=== PATIENT | male | born 1965 | race Caucasian/White ===

== ENCOUNTER 2021-01-02 18:00 | Emergency (ER) | payer SELFPAY ==
--- OUTSIDE RECORDS SUMMARY | 2021-01-02 18:04 | XMS REPORT | Continuity of Care Document ---
:1965 Author Organization [facility] t Address [address] [place] [address] Dr. [address]. [address] [place] [address] Care Team Providers Name Role Phone Sharpless Primary Care Physician Brunilda CORDERO Attending Clinician JAMMIE WATKINS Attending Clinician Unavailable JAMMIE WATKINS Admitting Clinician Unavailable Problems Condition Condition Condition Status Onset Resolution Last Treating Co mments Source Name Details Category Date Date Treatment Clinician Date TIA TIA Disease Active [facility] (transient (transient 5-01 [facility] [facility] - ischemic ischemic 00:00: Medica l attack) attack) 00 [place] Speech Speech Disease Active [facility] abnormalit abnormalit 4-30 [facility] - y y 00:00: Medical 00 [place] Bipolar Bipolar Disease Active [facility] disorder disorder [facility] Allergies, Adverse Reactions, Alerts This patient has no known allergies or adverse reactions. Social History Social Habit Start Date Stop Date Quantity Comments Source Sex Assigned At [facility] Smoking Status Start Date Stop Date Source Former smoker 2017-02-18 00:00:00 2017-02-18 00:00:00 [facility] Medications Ordered Filled Start Stop Current Ordering Indication Dosage Frequency Signature Comments Components Source Medication Medication Date Date Medication? Clinician (SIG) Name Name cyclobenzap 2017- Yes 10mg Q.5D Take [address] [facility] rine 5-01 by mouth 2 [facility] - (FLEXERIL) 17:14: (two) Medica l 10 MG 26 times Center tablet daily . glipiZIDE 2017-0 Yes 10mg Take [address] [facility] [address] [facility] (GLUCOTROL) 5-01 by mouth 2 [place] [facility] - 10 MG 17:14: (two) Medical tablet 26 times Center daily before meals. lisinopril 2017-0 Yes 10mg QD Take [address] [facility] (PRINIVIL,Z 5-01 by mouth [facility] - ESTRIL) 10 17:14: daily. Medic al MG tablet 26 Center gabapentin 2016-0 Yes 600mg Q.5D Take [address] [facility] [address] [facility] (NEURONTIN) 5-01 mg by [facility] - 600 MG 17:14: mouth 2 Medical tablet 26 (two) Center times daily. metFORMIN 2016-0 Yes 1000mg Take 1,[address] [facility] (GLUCOPHAGE 5-01 mg by [facility] - ) 1000 MG 17:14: mouth 2 Medic al tablet 26 (two) Center times daily with breakfast and dinner. multivitami 2017-0 Yes 1{capsu QD Take [address] n capsule 5-01 le} capsule by [facility] - 17:14: mouth Medical 26 daily. Center omega-3 2016-0 Yes Take by [facility] fatty 5-01 mouth. [facility] - acids-vitam 17:14: Medica l in E 1,000 26 Center mg Cap b complex 2016-0 Yes 1{tbl} Q.5D Take [address] [facility] vitamins 5-01 tablet by [facility] - tablet 17:14: mouth 2 Medical 26 (two) Center times daily. DULoxetine 2017-0 Yes 60mg QD Take [address] [facility] (CYMBALTA) 5-01 by mouth [facility] - 60 MG 17:14: daily. Medical capsule 26 Center lamoTRIgine 2017-0 Yes 100mg QD Take [address] (LAMICTAL) 5-01 mg by [facility] - 100 MG 17:14: mouth Medical tablet 26 daily. Center Procedures This patient has no known procedures. Encounters Start End Encounter Admission Attending Care Care Encounter Source Date/Time Date/Time Type Type Clinicians Facility Department ID 2020-01-18 2020-01-18 Telephone KARL Worley [id number] 00:00:00 00:00:00 [facility] [id number] [place] [id number] [place] [address] [id number] Primary & 370 Specialty Care 2019-11-02 2019-11-02 Outpatient MH MED [id number] 05:44:00 05:44:00 [facility] goldie [facility] Results Test Description Test Time Test Comments Results Result Comments Source POCT-GLUCOSE METER 2017-02-18 12:24:00 Test Item Value Reference Range Interpretation Comme nts POC-GLUCOSE METER (BEAKER) (test 217 mg/dL 70-[address] [facility] [address] code = 1538) [facility] 7703 0 [id number] 12:20:00 Test Item Value Reference Range Interpretation Comments RPR SCREEN (BEAKER) (test code = Nonreactive Nonreactive 420) POCT-GLUCOSE [id number] 08:12:00 Test Item Value Reference Range Interpretation Comments POC-GLUCOSE METER 149 mg/dL 70-[address] [facility] [address] (BEAKER) (test code = BERTNE R [facility] 1538) [address] BASIC METABOLIC [id number] 05:20:00 Test Item Value Reference Range Interpretation Comments SODIUM (BEAKER) 140 meq/L 136-145 (test code = 381) POTASSIUM (BEAKER) 4.1 meq/L 3.5-5.1 (test code = 379) CHLORIDE (BEAKER) 107 meq/L 98-107 (test code = 382) CO2 (BEAKER) (test 25 meq/L 22-29 code = 355) BLOOD UREA NITROGEN 12 mg/dL 7-21 (BEAKER) (test code = 354) CREATININE (BEAKER) 0.89 mg/dL 0.57-1.25 (test code = 358) GLUCOSE RANDOM 177 mg/dL 70-105 H (BEAKER) (test code = 652) CALCIUM (BEAKER) 8.7 mg/dL 8.4-10.2 (test code = 697) EGFR (BEAKER) (test 90 mL/min/1.73 ESTIMA JOANIE GFR IS code = 1092) sq m NOT ACCURATE CREATININE CLEARANCE IN PREDICTING GLOMERULAR FILTRATION RATE . ESTIMATED GFR I S NOT APPLICABLE FOR DIALYSIS PATIEN TS. CBC W/PLT COUNT & AUTO [id number] 05:07:00 Test Item Value Reference Range Interpretation Comments WHITE BLOOD CELL COUNT (BEAKER) 6.9 K/ L 4.0-10.0 (test code = 775) RED BLOOD CELL COUNT (BEAKER) 5.37 M/ L 4.20-5.80 (test code = 761) HEMOGLOBIN (BEAKER) (test code = 16.7 GM/DL 13.0-16.8 410) HEMATOCRIT (BEAKER) (test code = 47.4 % 40.0-50.0 411) MEAN CORPUSCULAR VOLUME (BEAKER) 88.3 fL 82.0-98.0 (test code = 753) MEAN CORPUSCULAR HEMOGLOBIN 31.1 pg 27.0-33.0 (BEAKER) (test code = 751) MEAN CORPUSCULAR HEMOGLOBIN CONC 35.2 GM/DL 32.0-36.0 (BEAKER) (test code = 752) RED CELL DISTRIBUTION WIDTH 13.5 % 10.3-14.2 (BEAKER) (test code = 412) PLATELET COUNT (BEAKER) (test 158 K/CU MM 150-430 code = 756) MEAN PLATELET VOLUME (BEAKER) 7.0 fL 6.5-10.5 (test code = 754) NUCLEATED RED BLOOD CELLS 0 /100 WBC 0-0 (BEAKER) (test code = 413) NEUTROPHILS RELATIVE PERCENT 47 % (BEAKER) (test code = 429) LYMPHOCYTES RELATIVE PERCENT 39 % (BEAKER) (test code = 430) MONOCYTES RELATIVE PERCENT 9 % (BEAKER) (test code = 431) EOSINOPHILS RELATIVE PERCENT 3 % (BEAKER) (test code = 432) BASOPHILS RELATIVE PERCENT 1 % (BEAKER) (test code = 437) NEUTROPHILS ABSOLUTE COUNT 3.26 K/ L 1.80-8.00 (BEAKER) (test code = 670) LYMPHOCYTES ABSOLUTE COUNT 2.70 K/ L 1.48-4.50 (BEAKER) (test code = 414) MONOCYTES ABSOLUTE COUNT (BEAKER) 0.64 K/ L 0.00-1.30 (test code = 415) EOSINOPHILS ABSOLUTE COUNT 0.23 K/ L 0.00-0.50 (BEAKER) (test code = 416) BASOPHILS ABSOLUTE COUNT (BEAKER) 0.05 K/ L 0.00-0.20 (test code = 417) 0.00POCT-GLUCOSE [id number] 21:04:00 Test Item Value Reference Range Interpretation Comments POC-GLUCOSE METER 298 mg/dL 70-110 H TESTED AT [place] [address] ([facility]) (test code = JA Mace [facility] 1538) [address] POCT-GLUCOSE [id number] 17:31:00 Test Item Value Reference Range Interpretation Comments POC-GLUCOSE METER 269 mg/dL 70-110 H TESTED AT [place] [address] ([facility]) (test code = DIONEND Rodri [facility] 1538) [address] POCT-GLUCOSE [id number] 12:28:00 Test Item Value Reference Range Interpretation Comments POC-GLUCOSE METER 242 mg/dL 70-110 H TESTED AT [place] [address] ([facility]) (test code = [facility] Rodri [facility] 1538) [address] HEMOGLOBIN [id number] 11:38:00 Test Item Value Reference Range Interpretation Comments HEMOGLOBIN A1C ([facility]) (test code = 9.3 % 4.3-6.1 H 368) SEDIMENTATION [id number] 09:30:00 Test Item Value Reference Range Interpretation Comments SEDIMENTATION RATE, ERYTHROCYTE 5 mm/HR 0-20 ([facility]) (test code = 766) TSH/FREE T4 IF [id number] 09:07:00 Test Item Value Reference Range Interpretation Comments THYROID STIMULATING HORMONE 1.33 uIU/mL 0.35-4.94 ([facility]) (test code = 772) VITAMIN B12 AND [id number] 09:07:00 Test Item Value Reference Range Interpretation Comments VITAMIN B12 ([facility]) (test code = 1548 pg/mL 213-816 H 774) FOLATE ([facility]) (test code = 362) 18.7 ng/mL >=7.0 Effective 09/07/2014: Folate Reference Range ChangeNew: >=7.0 Previous: >=5.4POCT-GLUCOSE [id number] 08:36:00 Test Item Value Reference Range Interpretation Comments POC-GLUCOSE METER 221 mg/dL 70-110 H TESTED AT [place] [address] ([facility]) (test code = [facility] Rodri [facility] 1538) [address] CBC W/PLT COUNT & AUTO [id number] 08:09:00 Test Item Value Reference Range Interpretation Comments WHITE BLOOD CELL COUNT (BEAKER) 6.9 K/ L 4.0-10.0 (test code = 775) RED BLOOD CELL COUNT (BEAKER) 5.16 M/ L 4.20-5.80 (test code = 761) HEMOGLOBIN (BEAKER) (test code = 15.9 GM/DL 13.0-16.8 410) HEMATOCRIT (BEAKER) (test code = 45.5 % 40.0-50.0 411) MEAN CORPUSCULAR VOLUME (BEAKER) 88.1 fL 82.0-98.0 (test code = 753) MEAN CORPUSCULAR HEMOGLOBIN 30.8 pg 27.0-33.0 (BEAKER) (test code = 751) MEAN CORPUSCULAR HEMOGLOBIN CONC 35.0 GM/DL 32.0-36.0 (BEAKER) (test code = 752) RED CELL DISTRIBUTION WIDTH 13.6 % 10.3-14.2 (BEAKER) (test code = 412) PLATELET COUNT (BEAKER) (test 160 K/CU MM 150-430 code = 756) MEAN PLATELET VOLUME (BEAKER) 7.3 fL 6.5-10.5 (test code = 754) NUCLEATED RED BLOOD CELLS 0 /100 WBC 0-0 (BEAKER) (test code = 413) NEUTROPHILS RELATIVE PERCENT 46 % (BEAKER) (test code = 429) LYMPHOCYTES RELATIVE PERCENT 40 % (BEAKER) (test code = 430) MONOCYTES RELATIVE PERCENT 10 % (BEAKER) (test code = 431) EOSINOPHILS RELATIVE PERCENT 3 % (BEAKER) (test code = 432) BASOPHILS RELATIVE PERCENT 1 % (BEAKER) (test code = 437) NEUTROPHILS ABSOLUTE COUNT 3.17 K/ L 1.80-8.00 (BEAKER) (test code = 670) LYMPHOCYTES ABSOLUTE COUNT 2.78 K/ L 1.48-4.50 (BEAKER) (test code = 414) MONOCYTES ABSOLUTE COUNT (BEAKER) 0.72 K/ L 0.00-1.30 (test code = 415) EOSINOPHILS ABSOLUTE COUNT 0.21 K/ L 0.00-0.50 (BEAKER) (test code = 416) BASOPHILS ABSOLUTE COUNT (BEAKER) 0.06 K/ L 0.00-0.20 (test code = 417) 0.00LIPID [id number] 08:04:00 Test Item Value Reference Range Interpretation Comments TRIGLYCERIDES (BEAKER) (test code = 322 mg/dL 540) CHOLESTEROL (BEAKER) (test code = 160 mg/dL 631) HDL CHOLESTEROL (BEAKER) (test code 30 mg/dL = 976) LDL CHOLESTEROL CALCULATED (BEAKER) 66 mg/dL (test code = 633) Triglyceride Reference Range: Low Risk <150 Borderline 150-199 High Risk 200-499 Very High Risk >=500Cholesterol Reference Range: Low Risk <200 Borderline 200-239 High Risk >240HDL Cholesterol Reference Range: Low Risk >=60 High Risk <40LDL Cholesterol Reference Range: Optimal <100 Near Optimal 100-129 Borderline 130-159 High 160-189 Very High >=190BASIC METABOLIC [id number] 07:33:00 Test Item Value Reference Range Interpretation Comments SODIUM (BEAKER) 141 meq/L 136-145 (test code = 381) POTASSIUM (BEAKER) 4.2 meq/L 3.5-5.1 (test code = 379) CHLORIDE (BEAKER) 108 meq/L 98-107 H (test code = 382) CO2 (BEAKER) (test 24 meq/L 22-29 code = 355) BLOOD UREA NITROGEN 14 mg/dL 7-21 (BEAKER) (test code = 354) CREATININE (BEAKER) 0.94 mg/dL 0.57-1.25 (test code = 358) GLUCOSE RANDOM 207 mg/dL 70-105 H (BEAKER) (test code = 652) CALCIUM (BEAKER) 9.2 mg/dL 8.4-10.2 (test code = 697) EGFR (BEAKER) (test 84 mL/min/1.73 ESTIMA JOANIE GFR IS code = 1092) sq m NOT ACCURATE CREATININE CLEARANCE IN PREDICTING GLOMERULAR FILTRATION RATE . ESTIMATED GFR I S NOT APPLICABLE FOR DIALYSIS PATIEN TS.
--- NOTE | 2021-01-02 19:55 | RAD REPORT ---
EXAM DESCRIPTION: RAD - Knee Left 3 View - 01/02/2021 7:34 pm CLINICAL HISTORY: Left knee pain FINDINGS: 26 millimeter bony density lies adjacent to the superolateral aspect of the patella. It is unchanged 2017 and may represent a bipartite patella which is a normal variant or an old fracture. No acute fracture or dislocation noted
--- NOTE | 2021-01-02 21:18 | ER ---
Nurse's Notes [facility] Name: Diogenes Power Jr Age: 55 yrs Sex: Male : 1965 Arrival Date: 01/02/2021 Time: 18:08 Bed Waiting Private MD: Diagnosis: Other dislocation of left knee Presentation: 01/02 18:40 Chief complaint: Patient states: Dislocated my L knee Saturday, put it back by myself. ca1 This morning, twisted my L knee again and dislocated. Now, I can't walk and put pressure on it. Coronavirus screen: Client denies travel out of the [place] in the last 14 days. At this time, the client does not indicate any symptoms associated with coronavirus-19. Ebola Screen: Patient negative for fever greater than or equal to 101.5 degrees Fahrenheit, and additional compatible Ebola Virus Disease symptoms Patient denies exposure to infectious person. Patient denies travel to an Ebola-affected area in the 21 days before illness onset. No symptoms or risks identified at this time. Initial Sepsis Screen: Does the patient meet any 2 criteria? No. Patient's initial sepsis screen is negative. Does the patient have a suspected source of infection? No. Patient's initial sepsis screen is negative. Risk Assessment: Do you want to hurt yourself or someone else? Patient reports no desire to harm self or others. Onset of symptoms was January 02, 2021. 18:40 Method Of Arrival: Ambulatory ca1 18:40 Acuity: ESA 4 ca1 Historical: - Allergies: 18:44 Cardizem; ca1 - PMHx: 18:44 Bipolar disorder; CVA; Diabetes - NIDDM; Hypertension; Myocardial infarction; ca1 - PSHx: 18:44 right hand surgery; bilateral rotator cuff; Hernia repair; left elbow surgery; ca1 - Immunization history:: Flu vaccine is not up to date. - Social history:: Smoking status: Patient denies any tobacco usage or history of. Screenin:33 Abuse screen: Denies threats or abuse. Denies injuries from another. Nutritional ca1 screening: No deficits noted. Tuberculosis screening: No symptoms or risk factors identified. Fall Risk None identified. Assessment: 21:33 General: Appears in no apparent distress. comfortable, Behavior is calm, cooperative, ca1 appropriate for age. Pain: Complains of pain in left knee Pain currently is 9 out of 10 on a pain scale. Pain began this morning. Neuro: Level of Consciousness is awake, alert, obeys commands, Oriented to person, place, time, situation. Derm: Skin is intact, is healthy with good turgor, Skin is pink, warm \T\ dry. Musculoskeletal: Circulation, motion, and sensation intact. Capillary refill < 3 seconds. Vital Signs: 18:40 BP 144 / 79; Pulse 70; Resp 16; Temp 97.2(TE); Pulse Ox 98% on R/A; Weight 127.91 kg ca1 (R); Height 6 ft. 0 in. (182.88 cm) (R); Pain 9/10; 21:33 BP 144 / 87; Pulse 89; Resp 16 S; Pulse Ox 97% on R/A; ca1 18:40 Body Mass Index 38.25 (127.91 kg, 182.88 cm) ca1 ED Course: 18:08 Patient arrived in ED. mr 18:43 Triage completed. ca1 18:44 Arm band placed on right wrist. ca1 19:34 Knee Left 3 View XRAY In Process Unspecified. EDMS 21:13 Joni Lugo MD is Attending Physician. tw4 21:17 Brandon Harley MD is Referral Physician. tw4 21:17 Rony Armijo MD is Referral Physician. tw4 21:33 Hannah Sotomayor, KENNETH is Primary Nurse. ca1 21:33 Patient has correct armband on for positive identification. ca1 21:34 No provider procedures requiring assistance completed. Patient did not have IV access ca1 during this emergency room visit. Knee immobilizer applied on left knee. Administered Medications: 21:33 Drug: [place] (7.5 mg-325 mg) 1 tabs {Note: rass 0.} Route: PO; ca1 21:34 Follow up: Response: Medication administered at discharge. ca1 21:33 Drug: Motrin 600 mg Route: PO; ca1 21:35 Follow up: Response: Medication administered at discharge. ca1 Outcome: 21:17 Discharge ordered by . tw4 21:35 Discharged to home ambulatory, with significant other. ca1 21:35 Condition: stable 21:35 Discharge instructions given to patient, Instructed on discharge instructions, follow up and referral plans. medication usage, Demonstrated understanding of instructions, follow-up care, medications, Prescriptions given X 1. 21:35 Patient left the ED. ca1 Signatures: Dispatcher [employer] Ilsa Suarez Terrence, MD MD tw4 Hannah Sotomayor RN RN ca1
--- NOTE | 2021-01-02 21:18 | EDPHYS ---
Physician Documentation [facility] Name: Diogenes Power Jr Age: 55 yrs Sex: Male : 1965 Arrival Date: 01/02/2021 Time: 18:08 Bed Waiting Private MD: ED Physician Joni Lugo HPI: 01/02 21:13 This 55 yrs old Male presents to ER via Ambulatory with complaints of Knee tw4 Dislocated. 21:13 The patient presents with decreased range of motion, a deformity. The complaints affect tw4 the left knee. Context: The problem was sustained at home, resulted from twisting of the extremity, the patient is not able to bear weight, must have assistance, Problem is a result from a previous injury: Yes. DISLOCATION OF KNEE. Onset: The symptoms/episode began/occurred just prior to arrival, today. Modifying factors: The symptoms are alleviated by remaining still, the symptoms are aggravated by movement, weight bearing, bending knee. Associated signs and symptoms: The patient has no apparent associated signs or symptoms. Severity of symptoms: At their worst the symptoms were moderate, in the emergency department the symptoms are unchanged. The patient has not experienced similar symptoms in the past. Historical: - Allergies: 18:44 Cardizem; ca1 - PMHx: 18:44 Bipolar disorder; CVA; Diabetes - NIDDM; Hypertension; Myocardial infarction; ca1 - PSHx: 18:44 right hand surgery; bilateral rotator cuff; Hernia repair; left elbow surgery; ca1 - Immunization history:: Flu vaccine is not up to date. - Social history:: Smoking status: Patient denies any tobacco usage or history of. ROS: 21:13 Constitutional: Negative for fever, chills, and weight loss, Eyes: Negative for injury, tw4 pain, redness, and discharge, Cardiovascular: Negative for chest pain, palpitations, and edema, Respiratory: Negative for shortness of breath, cough, wheezing, and pleuritic chest pain, Abdomen/GI: Negative for abdominal pain, nausea, vomiting, diarrhea, and constipation. 21:13 Skin: Negative for injury, rash, and discoloration, Neuro: Negative for headache, weakness, numbness, tingling, and seizure. 21:13 MS/extremity: Positive for swelling, tenderness. 21:13 MS/extremity: Positive for decreased range of motion, pain. Exam: 21:13 Constitutional: This is a well developed, well nourished patient who is awake, alert, tw4 and in no acute distress. Head/Face: Normocephalic, atraumatic. Chest/axilla: Normal chest wall appearance and motion. Nontender with no deformity. No lesions are appreciated. Cardiovascular: Regular rate and rhythm with a normal S1 and S2. No gallops, murmurs, or rubs. Normal PMI, no JVD. No pulse deficits. Respiratory: Lungs have equal breath sounds bilaterally, clear to auscultation and percussion. No rales, rhonchi or wheezes noted. No increased work of breathing, no retractions or nasal flaring. Abdomen/GI: Soft, non-tender, with normal bowel sounds. No distension or tympany. No guarding or rebound. No evidence of tenderness throughout. Back: No spinal tenderness. No costovertebral tenderness. Full range of motion. Neuro: Awake and alert, GCS 15, oriented to person, place, time, and situation. Cranial nerves II-XII grossly intact. Motor strength 5/5 in all extremities. Sensory grossly intact. Cerebellar exam normal. Normal gait. Psych: Awake, alert, with orientation to person, place and time. Behavior, mood, and affect are within normal limits. 21:13 Musculoskeletal/extremity: Extremities: noted in the right knee: decreased ROM, deformity, Pulses: noted to be 2+ in the right dorsalis pedis artery, Perfusion: the extremity is normally perfused throughout. Vital Signs: 18:40 BP 144 / 79; Pulse 70; Resp 16; Temp 97.2(TE); Pulse Ox 98% on R/A; Weight 127.91 kg ca1 (R); Height 6 ft. 0 in. (182.88 cm) (R); Pain 9/10; 21:33 BP 144 / 87; Pulse 89; Resp 16 S; Pulse Ox 97% on R/A; ca1 18:40 Body Mass Index 38.25 (127.91 kg, 182.88 cm) ca1 Procedures: 01/03 01:08 Splinting: Splint applied to left quadriceps, left knee and left dave using knee tw4 immobilizer, applied by nurse. Examined by me, post splint application: neurovascular intact, 2+ distal pulses palpable, brisk capillary refill noted, Patient tolerated well. MDM: 01/02 21:17 Patient medically screened. tw4 01/03 01:08 Differential diagnosis: dislocation, closed fracture, contusion, abrasion, tendonitis. tw4 Data reviewed: vital signs, nurses notes, radiologic studies, plain films. Data interpreted: Pulse oximetry: Interpretation: normal. Test interpretation: by ED physician or midlevel provider: plain radiologic studies. Counseling: I had a detailed discussion with the patient and/or guardian regarding: the historical points, exam findings, and any diagnostic results supporting the discharge/admit diagnosis, radiology results. 01/02 18:45 Order name: Knee Left 3 View XRAY ca1 01/02 21:15 Order name: Knee Immobilizer; Complete Time: 21:25 tw4 Administered Medications: 01/02 21:33 Drug: [place] (7.5 mg-325 mg) 1 tabs {Note: rass 0.} Route: PO; ca1 21:34 Follow up: Response: Medication administered at discharge. ca1 21:33 Drug: Motrin 600 mg Route: PO; ca1 21:35 Follow up: Response: Medication administered at discharge. ca1 Disposition: 01/02/21 21:17 Discharged to Home. Impression: Other dislocation of left knee. - Condition is Stable. - Discharge Instructions: Knee Dislocation. - Prescriptions for meloxicam 7.5 mg Oral tablet - take 1 tablet by ORAL route once daily; 15 tablet. - Medication Reconciliation Form, Thank You Letter, Antibiotic Education, Prescription Opioid Use form. - Follow up: Private Physician; When: Upon discharge from the Emergency Department; Reason: Recheck today's complaints, Continuance of care, Re-evaluation by your physician. Follow up: Brandon Harley MD; When: Upon discharge from the Emergency Department; Reason: Recheck today's complaints, Continuance of care, Re-evaluation by your physician. Follow up: Rony Armijo MD; When: Upon discharge from the Emergency Department; Reason: Recheck today's complaints, Continuance of care, Re-evaluation by your physician. - Problem is an ongoing problem. - Symptoms have improved. Signatures: Dispatcher [employer] Joni Perez MD MD tw4 Hannah Sotomayor RN RN ca1 Corrections: (The following items were deleted from the chart) 21:18 21:17 01/02/2021 21:17 Discharged to Home. Impression: Other dislocation of left knee. tw4 Condition is Stable. Forms are Medication Reconciliation Form, Thank You Letter, Antibiotic Education, Prescription Opioid Use. Follow up: Private Physician; When: Upon discharge from the Emergency Department; Reason: Recheck today's complaints, Continuance of care, Re-evaluation by your physician. Problem is an ongoing problem. Symptoms have improved. tw4 21:35 21:18 01/02/2021 21:17 Discharged to Home. Impression: Other dislocation of left knee. ca1 Condition is Stable. Forms are Medication Reconciliation Form, Thank You Letter, Antibiotic Education, Prescription Opioid Use. Follow up: Private Physician; When: Upon discharge from the Emergency Department; Reason: Recheck today's complaints, Continuance of care, Re-evaluation by your physician. Follow up: Brandon Harley; When: Upon discharge from the Emergency Department; Reason: Recheck today's complaints, Continuance of care, Re-evaluation by your physician. Follow up: Rony Armijo; When: Upon discharge from the Emergency Department; Reason: Recheck today's complaints, Continuance of care, Re-evaluation by your physician. Problem is an ongoing problem. Symptoms have improved. tw4
[2021-01-02] MEDS ORDERED: HYDROCODONE/APAP 7.5/325 MG TAB ONE (21:45)
[2021-01-02] MEDS ORDERED: IBUPROFEN 400 MG TAB ONE (21:45)
[2021-01-02] MEDS ORDERED: IBUPROFEN 200 MG TAB PO ONE (21:45)
[2021-01-03 02:09] VITALS: TEMP 97.2
[2021-01-03 02:15] VITALS: BP 144/87; O2SAT 97
== END 2021-01-02 21:35 | disposition home or self-care (01) ==
LOC: ER 18:00
DX: S83.195A Other dislocation of left knee, initial encounter (principal); X50.0XXA Overexertion from strenuous movement or load, initial encounter; Y92.009 Unspecified place in unspecified non-institutional (private) residence as the place of occurrence of the external cause; F31.9 Bipolar disorder, unspecified; Z86.73 Personal history of transient ischemic attack (TIA), and cerebral infarction without residual deficits; E11.9 Type 2 diabetes mellitus without complications; I10 Essential (primary) hypertension; I25.2 Old myocardial infarction
CPT/HCPCS: 99284

== ENCOUNTER 2021-01-27 18:05 | Inpatient (IN) | payer SELFPAY ==
--- OUTSIDE RECORDS SUMMARY | 2021-01-27 18:09 | XMS REPORT | Continuity of Care Document ---
:1965 Author Organization [facility] t Address [address] [place] [address] Care Team Providers Name Role Phone Sharpless [...] ischemic 00:00: Medica l attack) attack) [address] [place] Speech Speech Disease Active [facility] abnormal[facility] 4-30 Tootie kes - y y 00:00: Medical 00 [place] Bipolar Bipolar Disease Active [facility] disorder disorder [facility] Allergies, Adverse Reactions, Alerts This patient has no known allergies or adverse reactions. Social History Social Habit Start Date Stop Date Quantity Comments Source Sex Assigned At [facility] Smoking Status Start Date Stop Date Source Former smoker 2017-02-18 00:00:00 2017-02-18 00:00:00 [facility] Medications Ordered Filled Start Stop Current Ordering [...] 1,000 26 Center mg Cap b complex 2016- Yes 1{tbl} Q.5D Take [address] [facility] [...] Department ID 2020-01-18 2020-01-18 Telephone KARL Worley [id number] 00:00:00 00:00:00 [facility] [id number] [place] [id number] [place] [address] [phone] Primary & 370 Specialty Care 2019-11-02 2019-11-02 Outpatient MH MED [id number] 05:44:00 05:44:00 [facility] Results Test Description Test Time Test Comments Results Result Comments Source POCT-GLUCOSE METER 2017-02-18 12:24:00 Test Item Value Reference Range Interpretation Comme nts POC-GLUCOSE METER (BEAKER) (test 217 mg/dL 70-110 H TESTED AT [facility] [address] code = 1538) [facility] 7703 0 [id number] 12:20:00 Test Item Value Reference Range Interpretation Comments RPR SCREEN (BEAKER) (test code = Nonreactive Nonreactive 420) POCT-GLUCOSE [id number] 08:12:00 Test Item Value Reference Range Interpretation Comments POC-GLUCOSE METER 149 mg/dL 70-110 H TESTED AT [facility] 6720 (BEAKER) (test code = BERTNE R [facility] 1538) [address] BASIC METABOLIC [id number] 05:20:00 Test Item Value Reference Range Interpretation [...] PATIEN TS. CBC W/PLT COUNT & AUTO [id number] 05:07:00 Test Item Value Reference Range Interpretation [...] L 0.00-0.20 (test code = 417) 0.00POCT-GLUCOSE [id number] 21:04:00 Test Item Value Reference Range Interpretation Comments POC-GLUCOSE METER 298 mg/dL 70-110 H TESTED AT [place] [address] ([facility] (test code = JA Mace [facility] 1538) [address] POCT-GLUCOSE [id number] 17:31:00 Test Item Value Reference Range Interpretation Comments POC-GLUCOSE METER 269 mg/dL 70-110 H TESTED AT [place] [address] ([facility] (test code = JA Mace [facility] 1538) [address] POCT-GLUCOSE [id number] 12:28:00 Test Item Value Reference Range Interpretation Comments POC-GLUCOSE METER 242 mg/dL 70-110 H TESTED AT [place] [address] ([facility] (test code = JA Mace [facility] 1538) [address] HEMOGLOBIN [id number] 11:38:00 Test Item Value Reference Range Interpretation Comments HEMOGLOBIN A1C ([facility] (test code = 9.3 % 4.3-6.1 H 368) SEDIMENTATION [id number] 09:30:00 Test Item Value Reference Range Interpretation Comments SEDIMENTATION RATE, ERYTHROCYTE 5 mm/HR 0-20 ([facility] (test code = 766) TSH/FREE T4 IF [id number] 09:07:00 Test Item Value Reference Range Interpretation Comments THYROID STIMULATING HORMONE 1.33 uIU/mL 0.35-4.94 ([facility] (test code = 772) VITAMIN B12 AND [id number] 09:07:00 Test Item Value Reference Range Interpretation Comments VITAMIN B12 ([facility] (test code = 1548 pg/mL 213-816 H 774) FOLATE ([facility] (test code = 362) 18.7 ng/mL >=7.0 Effective 09/07/2014: Folate Reference Range ChangeNew: >=7.0 Previous: >=5.4POCT-GLUCOSE [id number] 08:36:00 Test Item Value Reference Range Interpretation Comments POC-GLUCOSE METER 221 mg/dL 70-110 H TESTED AT [place] [address] ([facility] (test code = JA Mace [facility] 1538) [address] CBC W/PLT COUNT & AUTO [id number] 08:09:00 Test Item Value Reference Range Interpretation [...] L 0.00-0.20 (test code = 417) 0.00LIPID [id number] 08:04:00 Test Item Value Reference Range Interpretation [...] 130-159 High 160-189 Very High >=190BASIC METABOLIC [id number] 07:33:00 Test Item Value Reference Range Interpretation [...]
[2021-01-27 18:49] LABS: Basophils % 0.8 % (0-1.3); Hematocrit 44.5 % (39.6-49.0); Lymphocytes % 23.3 % (15.3-44.8); MPV 9.2 fL (7.6-11.3); Protime INR 0.93; RBC Red Blood Cell Count 4.87 M/uL (4.33-5.43)
--- NOTE | 2021-01-27 19:03 | RAD REPORT ---
EXAM DESCRIPTION: RAD - Chest Single View - 01/27/2021 6:44 pm CLINICAL HISTORY: syncope Chest pain. COMPARISON: Chest Single View dated 03/27/2017; Chest Single View dated 02/16/2017; CHEST SINGLE VIEW d ated 07/11/2014; CHEST SINGLE VIEW dated 07/09/2014 FINDINGS: Portable technique limits examination quality. The lungs are underinflated resulting in vascular crowding. Small infiltrate may be present in the la teral right lower lobe. The heart is mildly enlarged in size. No displaced fractures. IMPRESSION: Possible small infiltrate right lung base.
[2021-01-27] MEDS ORDERED: NA CHLORIDE 0.9% 1,000 ML ONE (19:06)
--- NOTE | 2021-01-27 19:10 | RAD REPORT ---
EXAM DESCRIPTION: CT - Head Brain Wo Cont - 01/27/2021 7:05 pm CLINICAL HISTORY: SYNCOPE Headache, drowsiness, syncope COMPARISON: Head Brain Wo Cont dated 02/16/2017 TECHNIQUE: All CT scans are performed using dose optimization technique as appropriate and may inclu de automated exposure control or mA/KV adjustment according to patient size. FINDINGS: No intracranial hemorrhage, hydrocephalus or extra-axial fluid collection.No areas of brai n edema or evidence of midline shift. The paranasal sinuses and mastoids are clear. The calvarium is intact. IMPRESSION: No acute intracranial abnormality.
[2021-01-27 19:22] LABS: ALT/SGPT 39 U/L (12-78); Albumin 3.4 g/dL (3.4-5.0); Alkaline Phosphatase 86 U/L (45-117); BUN Blood Urea Nitrogen 20 mg/dL (7-18); Bicarbonate 26 mmol/L (21-32); Bilirubin Total 0.5 mg/dL (0.2-1.0); Glucose Level 340 mg/dL (74-106); NT PRO-BNP 16 pg/mL (<125); Potassium 5.5 mmol/L (3.5-5.1); Protein, Total 6.3 g/dL (6.4-8.2); Sodium Level 137 mmol/L (136-145); Troponin (Emerg Dept Use Only) < 0.02 ng/mL (0.0-0.045)
[2021-01-27 19:23] LABS: Bilirubin Direct 0.1 mg/dL (0-0.2)
[2021-01-27 19:53] LABS: AST/SGOT 42 U/L (15-37); Magnesium 2.1 mg/dL (1.8-2.4)
--- NOTE | 2021-01-27 21:16 | ER ---
Nurse's Notes [facility] Name: Diogenes Power Jr Age: 55 yrs Sex: Male : 1965 Arrival Date: 01/27/2021 Time: 18:09 Bed 18 Private MD: Diagnosis: Syncope and collapse;Hyperkalemia Presentation: 01/27 18:09 Chief complaint: Patient states: Found on floor at home. Last known normal was last bw night. Pt is A\\T\\O x2, confused. Respirations even and unlabored. Coronavirus screen: Client denies travel out of the [place] in the last 14 days. Ebola Screen: Patient denies exposure to infectious person. Patient denies travel to an Ebola-affected area in the 21 days before illness onset. Initial Sepsis Screen: Does the patient meet any 2 criteria? No. Patient's initial sepsis screen is negative. Does the patient have a suspected source of infection? No. Patient's initial sepsis screen is negative. Risk Assessment: Do you want to hurt yourself or someone else? Patient reports no desire to harm self or others. Onset of symptoms is unknown. 18:09 Method Of Arrival: EMS: [facility] 18:09 Acuity: ESA 2 bw Historical: - Allergies: 18:40 Cardizem; bw - PMHx: 18:40 Bipolar disorder; CVA; Diabetes - NIDDM; Hypertension; Myocardial infarction; Seizures; bw - PSHx: 18:40 right hand surgery; bilateral rotator cuff; Hernia repair; left elbow surgery; bw - Immunization history:: Adult Immunizations unknown. - Social history:: Smoking status: Patient reports use of chewing tobacco. Screenin:46 Abuse screen: Denies threats or abuse. Denies injuries from another. Nutritional bw screening: No deficits noted. Tuberculosis screening: Never had TB. Fall Risk Fall in past 12 months (25 points). Secondary diagnosis (15 points) AMS. IV access (20 points). Ambulatory Aid- None/Bed Rest/Nurse Assist (0 pts). Gait- Normal/Bed Rest/Wheelchair (0 pts) Mental Status- Oriented to own ability (0 pts). Assessment: 18:40 General: Appears comfortable, obese, Behavior is calm, cooperative, joking with ER bw staff and son who is at bedside.. Pain: Denies pain. Neuro: Level of Consciousness is awake, obeys commands, confused, Oriented to person, place, C Wpf Developer are equal bilaterally Weakness in left arm(s) Pt states he is weak on that side because of pain in his shoulder upon movement. Speech is normal, Facial symmetry appears normal, Pupils are PERRLA. Cardiovascular: Capillary refill < 3 seconds is brisk in bilateral fingers. Respiratory: Airway is patent Trachea midline Respiratory effort is even, unlabored. Respiratory: Denies cough, shortness of breath. GI: Abdomen is round Patient currently denies abdominal pain, diarrhea, nausea, vomiting. : No signs and/or symptoms were reported regarding the genitourinary system. EENT: Nares are clear Throat mouth has chewing tobacco residual. Son states that patient "dips" often. . Derm: Skin is intact, is healthy with good turgor, Skin is dry, Skin is pink, warm \\T\\ dry. normal. Musculoskeletal: Swelling absent. 19:40 General: Appears comfortable, obese, Behavior is calm, cooperative. Pain: Denies pain. sf Neuro: Level of Consciousness is awake, obeys commands, confused, Oriented to person, place. Cardiovascular: Capillary refill < 3 seconds Patient's skin is warm and dry. Respiratory: Airway is patent Respiratory effort is even, unlabored, Respiratory pattern is regular, symmetrical. GI: Abdomen is round. : No signs and/or symptoms were reported regarding the genitourinary system. Derm: Skin is pink, warm \\T\\ dry. Musculoskeletal: No signs and/or symptoms reported regarding the musculoskeletal system. 21:10 Reassessment: Patient appears in no apparent distress at this time. No changes from sf previously documented assessment. Patient and/or family updated on plan of care and expected duration. Pain level reassessed. Patient is alert, oriented x 3, equal unlabored respirations, skin warm/dry/pink. 22:55 Reassessment: Patient still not able to give urine after 1800 ml of water PO and 1000 sf ml NS IV, OTTONIEL Ortega notified, BMP ordered. 01/28 00:05 Reassessment: Patient appears in no apparent distress at this time. No changes from sf previously documented assessment. Patient and/or family updated on plan of care and expected duration. Pain level reassessed. Patient is alert, oriented x 3, equal unlabored respirations, skin warm/dry/pink. 01:04 Reassessment: Patient appears in no apparent distress at this time. No changes from previously documented assessment. Patient and/or family updated on plan of care and expected duration. Pain level reassessed. Patient is alert, oriented x 3, equal unlabored respirations, skin warm/dry/pink. Vital Signs: 01/27 18:09 BP 90 / 50; Pulse 79; Resp 14; Temp 98.2(O); Pulse Ox 100% on R/A; Weight 134.72 kg; bw Height 6 ft. 0 in. (182.88 cm); Pain 0/10; 19:00 BP 124 / 71; Pulse 69; Pulse Ox 100% ; sf 19:15 BP 131 / 70; Pulse 69; Resp 16; Pulse Ox 100% ; sf 19:30 BP 127 / 73; Pulse 67; Resp 16; Pulse Ox 99% ; sf 20:45 BP 118 / 65; Pulse 70; Resp 16; Pulse Ox 100% ; sf 21:30 BP 121 / 53; Pulse 69; Resp 16; Pulse Ox 100% ; sf 22:00 BP 155 / 97; Pulse 54; Resp 16; Pulse Ox 100% ; sf 22:30 BP 149 / 92; Pulse 60; Resp 16; Pulse Ox 100% ; sf 23:00 BP 118 / 79; Pulse 69; Resp 16; Pulse Ox 100% ; sf 23:30 BP 113 / 68; Pulse 66; Resp 18; Pulse Ox 100% ; sf 04 00:00 BP 94 / 57; Pulse 72; Resp 16; Pulse Ox 99% ; sf 01:00 BP 132 / 68; Pulse 67; Resp 16; Pulse Ox 100% ; sf 01/27 18:09 Body Mass Index 40.28 (134.72 kg, 182.88 cm) ED Course: 01/27 18:09 Patient arrived in ED. 18:17 Jordan Azul PA is PHCP. cp 18:17 Jordan Ang MD is Attending Physician. cp 18:20 Inserted saline lock: 20 gauge in right wrist, using aseptic technique. Blood jp3 collected. Patient maintains SpO2 saturation greater than 95% on room air. 18:20 Initial lab(s) drawn, by me, sent to lab. First set of blood cultures drawn by me, EKG jp3 done, by ED staff, reviewed by Jordan COLON. 18:33 Kim Callaway, RN is Primary Nurse. bw 18:38 Triage completed. bw 18:38 Second set of blood cultures drawn by ks. jp3 18:40 Arm band placed on right wrist. bw 18:44 XRAY Chest (1 view) In Process Unspecified. EDMS 18:45 Bed in low position. Call light in reach. Side rails up X2. Seizure precautions jp3 initiated. Verbal reassurance given. Head of bed elevated. [employer] on. Pulse ox on. NIBP on. 19:05 CT Head Brain wo Cont In Process Unspecified. EDMS 20:00 Diet: Patient given water. jp3 21:15 Corby Shaikh MD is Hospitalizing Provider. cp 22:55 Diet: Patient given water. jp3 22:57 Primary Nurse role handed off by Kim Callaway, KENNETH sf 22:57 Javier Kimble, KENNETH is Primary Nurse. sf 22:58 Repeat lab(s) drawn. by ks, sent to lab. jp3 23:00 BMP Sent. jp3 23:48 Notified Nurse Practitioner and/or Physician Legal Biller of a critical lab result(s), bb glucose of 429. Jordan Latha COLON notified. 01/28 00:20 Straight cath inserted, using sterile technique, 16 Fr. Specimen obtained. Returned bb clear yellow urine. Patient tolerated well. 00:20 Urine collected: straight cath specimen, clear. sf 01:05 No provider procedures requiring assistance completed. Patient admitted, IV remains in sf place. Administered Medications: 01/27 18:50 Drug: NS 0.9% 1000 ml Route: IV; Rate: 1 bolus; Site: right wrist; bw 19:00 Follow up: IV Status: Completed infusion; IV Intake: 1000ml sf 19:20 Follow up: Response: No adverse reaction sf 01/28 00:10 Drug: Insulin Regular Human 10 units {Co-Signature: bb (Genna Lazo RN).} Route: sf IVP; Site: right forearm; 01:14 Follow up: Response: No adverse reaction; Blood sugar is lowered sf 00:10 Drug: NS 0.9% 1000 ml Route: IV; Rate: 1 bolus; Site: right forearm; sf 01:08 Follow up: Response: No adverse reaction; IV Status: Completed infusion; IV Intake: sf 1000ml Intake: 01/27 19:00 IV: 1000ml; Total: 1000ml. sf 22:57 PO: 1800ml (Water); Total: 2800ml. sf 01/28 01:08 IV: 1000ml; Total: 3800ml. sf Output: 00:20 Urine: 400ml (Straight Cath); Total: 400ml. sf Outcome: 01/27 21:16 Decision to Hospitalize by Provider. vianey 01/28 01:05 Condition: stable sf Instructed on the need for admit. 01:26 Admitted to Tele accompanied by nurse, via stretcher, room 430, Report called to noelle Shen RN 01:44 Patient left the ED. sf Signatures: Dispatcher [employer] EDGenna Aguillon RN RN bb Page, Corey, PA PA cp Pisarski, Jacob jp3 Javier Kimble RN RN sf Webb, Bethany, RN RN Genna brown Corrections: (The following items were deleted from the chart) 01/27 23:33 23:33 BASIC METABOLIC PANEL+C.LAB.BRZ drawn and sent. jp3 jp3
--- NOTE | 2021-01-27 21:16 | EDPHYS ---
Physician Documentation [facility] Name: Diogenes Power Jr Age: 55 yrs Sex: Male : 1965 Arrival Date: 01/27/2021 Time: 18:09 Bed 18 Private MD: ED Physician Jordan Ang HPI: 01/27 18:36 This 55 yrs old Male presents to ER via Unassigned with complaints of Altered cp Mental Status. 18:36 The patient has experienced syncope, collapsed. Onset: The symptoms/episode cp began/occurred just prior to arrival. Duration: This was a single episode, that lasted an unknown period of time. Associated injury: The patient did not suffer any apparent associated injury. 18:36 Patient reports he got up from his bed this afternoon to go to restroom and next thing cp he remembers is waking up on floor. Historical: - Allergies: 18:40 Cardizem; bw - PMHx: 18:40 Bipolar disorder; CVA; Diabetes - NIDDM; Hypertension; Myocardial infarction; Seizures; bw - PSHx: 18:40 right hand surgery; bilateral rotator cuff; Hernia repair; left elbow surgery; bw - Immunization history:: Adult Immunizations unknown. - Social history:: Smoking status: Patient reports use of chewing tobacco. ROS: 18:40 Constitutional: Negative for body aches, chills, fever, poor PO intake. cp 18:40 Eyes: Negative for injury, pain, redness, and discharge. cp 18:40 ENT: Negative for ear pain, sore throat, difficulty swallowing, difficulty handling secretions. 18:40 Cardiovascular: Negative for chest pain. 18:40 Respiratory: Negative for cough, shortness of breath, wheezing. 18:40 Abdomen/GI: Negative for abdominal pain, nausea, vomiting, and diarrhea, black/tarry stool, rectal bleeding. 18:40 Neuro: Positive for syncope, Negative for altered mental status, headache, weakness. 18:40 All other systems are negative. Exam: 18:29 ECG was reviewed by the Attending Physician. cp 18:45 Constitutional: The patient appears in no acute distress, alert, awake, cp non-diaphoretic, non-toxic, well developed, well nourished, obese. 18:45 Head/Face: Normocephalic, atraumatic. cp 18:45 Eyes: Periorbital structures: appear normal, Pupils: equal, round, and reactive to light and accomodation, Extraocular movements: intact throughout, Conjunctiva: normal, no exudate, no injection, Lids and lashes: appear normal, bilaterally. 18:45 ENT: External ear(s): are unremarkable, Nose: is normal, Mouth: Lips: moist, Oral mucosa: moist, Posterior pharynx: Airway: no evidence of obstruction, patent. 18:45 Neck: ROM/movement: is normal, is supple, without pain, no range of motions limitations, no meningismus. 18:45 Chest/axilla: Inspection: normal, Palpation: is normal, no crepitus, no tenderness. 18:45 Cardiovascular: Rate: normal, Rhythm: regular, Edema: is not appreciated, JVD: is not appreciated. 18:45 Respiratory: the patient does not display signs of respiratory distress, Respirations: normal, no use of accessory muscles, no retractions, labored breathing, is not present, Breath sounds: are clear throughout, no decreased breath sounds, no stridor, no wheezing. 18:45 Abdomen/GI: Inspection: abdomen appears normal, Bowel sounds: active, all quadrants, Palpation: abdomen is soft and non-tender, in all quadrants. 18:45 Skin: no rash present. 18:45 Neuro: Orientation: to person, time, situation, Mentation: able to follow commands, Cerebellar function: is grossly normal, Motor: moves all fours, strength is normal, Sensation: is normal. Vital Signs: 18:09 BP 90 / 50; Pulse 79; Resp 14; Temp 98.2(O); Pulse Ox 100% on R/A; Weight 134.72 kg; bw Height 6 ft. 0 in. (182.88 cm); Pain 0/10; 19:00 BP 124 / 71; Pulse 69; Pulse Ox 100% ; sf 19:15 BP 131 / 70; Pulse 69; Resp 16; Pulse Ox 100% ; sf 19:30 BP 127 / 73; Pulse 67; Resp 16; Pulse Ox 99% ; sf 20:45 BP 118 / 65; Pulse 70; Resp 16; Pulse Ox 100% ; sf 21:30 BP 121 / 53; Pulse 69; Resp 16; Pulse Ox 100% ; sf 22:00 BP 155 / 97; Pulse 54; Resp 16; Pulse Ox 100% ; sf 22:30 BP 149 / 92; Pulse 60; Resp 16; Pulse Ox 100% ; sf 23:00 BP 118 / 79; Pulse 69; Resp 16; Pulse Ox 100% ; sf 23:30 BP 113 / 68; Pulse 66; Resp 18; Pulse Ox 100% ; 01/28 00:00 BP 94 / 57; Pulse 72; Resp 16; Pulse Ox 99% ; sf 01:00 BP 132 / 68; Pulse 67; Resp 16; Pulse Ox 100% ; sf 01/27 18:09 Body Mass Index 40.28 (134.72 kg, 182.88 cm) bw MDM: 01/27 18:17 Patient medically screened. checo 21:15 Data reviewed: vital signs, nurses notes, lab test result(s), EKG, radiologic studies, cp CT scan, and as a result, I will admit patient. 01/27 18:20 Order name: Basic Metabolic Panel; Complete Time: 20:11 01/27 20:11 Interpretation: Normal except: K 5.5; CL 108; GLUC 340; BUN 20; CRE 1.97; GFR 35. 01/27 18:20 Order name: CBC with Diff; Complete Time: 19:07 01/27 19:07 Interpretation: Reviewed. 01/27 18:20 Order name: LFT's; Complete Time: 20:11 01/27 20:11 Interpretation: Normal except: AST 42; TP 6.3. 01/27 18:20 Order name: Magnesium; Complete Time: 20:11 01/27 18:20 Order name: NT PRO-BNP; Complete Time: 20:11 01/27 18:20 Order name: PT-INR; Complete Time: 19:07 01/27 18:20 Order name: Troponin (emerg Dept Use Only); Complete Time: 20:11 01/27 18:20 Order name: Urine Drug Screen 01/27 18:20 Order name: Urine Microscopic Only 01/27 18:20 Order name: Lactate; Complete Time: 19:42 01/27 19:42 Interpretation: Within normal limits: LAC 1.9. 01/27 18:20 Order name: Procalcitonin; Complete Time: 20:29 cp 01/27 20:29 Interpretation: Abnormal: Procalcitonin 0.08. cp 01/27 18:20 Order name: Blood Culture Adult (2) cp 04 18:28 Order name: Glucose, Ancillary Testing; Complete Time: 19:07 EDMS 01/27 19:07 Interpretation: Abnormal: GLUC,ANCIL 334. cp 01/27 18:20 Order name: XRAY Chest (1 view); Complete Time: 19:07 cp 01/27 18:20 Order name: EKG; Complete Time: 18:21 cp 01/27 18:20 Order name: Cardiac monitoring; Complete Time: 18:46 cp 01/27 18:20 Order name: EKG - Nurse/Tech; Complete Time: 18:46 cp 01/27 18:20 Order name: IV Saline Lock; Complete Time: 18:46 cp 01/27 18:32 Order name: CT Head Brain wo Cont; Complete Time: 19:12 01/27 19:12 Interpretation: Report reviewed. 01/27 20:14 Order name: CK; Complete Time: 21:13 01/27 20:23 Order name: SARS-COV-2 RT PCR; Complete Time: 20:29 EDKS 01/27 23:00 Order name: BMP 01/27 23:01 Order name: Basic Metabolic Panel; Complete Time: 23:48 EDKS 01/27 23:48 Interpretation: Normal except: K 5.3; GLUC 429; BUN 21; CRE 1.91; GFR 37. cp 01/27 23:06 Order name: CONS Physician Consult EDKS 01/28 00:27 Order name: Urine Dipstick-Ancillary EDKS 01/28 01:24 Order name: Glucose, Ancillary Testing EDKS 01/27 18:20 Order name: Labs collected and sent; Complete Time: 18:46 01/27 18:20 Order name: O2 Per Protocol; Complete Time: 18:46 01/27 18:20 Order name: O2 Sat Monitoring; Complete Time: 18:46 01/27 18:20 Order name: Urine Dipstick-Ancillary (obtain specimen); Complete Time: 22:23 cp 01/28 00:10 Order name: Cath; Complete Time: 00:19 cp EC:29 Rate is 78 beats/min. Rhythm is regular. NJ interval is normal. QRS interval is normal. cp QT interval is normal. T waves are Inverted in lead aVR. Interpreted by me. Reviewed by me. Administered Medications: 18:50 Drug: NS 0.9% 1000 ml Route: IV; Rate: 1 bolus; Site: right wrist; bw 19:00 Follow up: IV Status: Completed infusion; IV Intake: 1000ml sf 19:20 Follow up: Response: No adverse reaction 01/28 00:10 Drug: Insulin Regular Human 10 units {Co-Signature: stephanie (Genna Lazo RN).} Route: sf IVP; Site: right forearm; 01:14 Follow up: Response: No adverse reaction; Blood sugar is lowered 00:10 Drug: NS 0.9% 1000 ml Route: IV; Rate: 1 bolus; Site: right forearm; sf 01:08 Follow up: Response: No adverse reaction; IV Status: Completed infusion; IV Intake: sf 1000ml Disposition: 07:32 Co-signature as Attending Physician, Jordan Ang MD I agree with the assessment and [facility] plan of care. Disposition: 01/27/21 21:16 Hospitalization ordered by Corby Shaikh for Observation. Preliminary diagnosis are Syncope and collapse, Hyperkalemia. - Bed requested for Telemetry/MedSurg (observation). - Status is Observation. sf - Condition is Stable. - Problem is new. - Symptoms have improved. Signatures: Dispatcher [employer] EDKS Mere Callaway RN RN mw Anderson, Corey, MD MD cha Page, Corey, PA PA cp Fitzpatrick, Steven, RN RN sf Webb, Bethany, RN RN bw Brenda Ballard RN bb Corrections: (The following items were deleted from the chart) 01/27 19:28 19:09 CORONAVIRUS+MR.LAB.BRZ ordered. EDKS EDMS 23:38 21:16 Hospitalization Ordered by Corby Shaikh MD for Observation. Preliminary cp diagnosis is Syncope and collapse. Bed requested for Telemetry/MedSurg (observation). Status is Observation. Condition is Stable. Problem is new. Symptoms have improved. cp 01/28 00:56 01/27 23:38 01/27/2021 21:16 Hospitalization Ordered by Corby Shaikh MD for Observation. Preliminary diagnosis is Syncope and collapse; Hyperkalemia. Bed requested for Telemetry/MedSurg (observation). Status is Observation. Condition is Stable. Problem is new. Symptoms have improved. cp 04/10 01:44 00:56 01/27/2021 21:16 Hospitalization Ordered by Corby Shaikh MD for Observation. sf Preliminary diagnosis is Syncope and collapse; Hyperkalemia. Bed requested for Telemetry/MedSurg (observation). Status is Observation. Condition is Stable. Problem is new. Symptoms have improved. mw
[2021-01-27 23:46] LABS: Potassium 5.3 mmol/L (3.5-5.1)
[2021-01-28 00:26] LABS: Urine Blood Negative (Negative); Urine Glucose 2+ (Negative); Urine Protein Negative (Negative); Urine Specific Gravity 1.025 (1.005-1.030)
[2021-01-28] MEDS ORDERED: INSULIN -REGULAR HUMAN 50 UNIT/0.5 ML ML ONE (00:27)
[2021-01-28] MEDS ORDERED: NA CHLORIDE 0.9% 1,000 ML ONE (00:27)
[2021-01-28 00:44] LABS: Barbiturates NEGATIVE (NEGATIVE); Benzodiazepines NEGATIVE (NEGATIVE); Cocaine NEGATIVE (NEGATIVE); METHAMPHETAM NEGATIVE (NEGATIVE); Methadone NEGATIVE (NEGATIVE); Opiates NEGATIVE (NEGATIVE); Phencyclidine NEGATIVE (NEGATIVE); THC Cannibis NEGATIVE (NEGATIVE); Urine Bacteria <20 /HPF (NONE SEEN); Urine RBC <5 /HPF (NONE SEEN)
--- NOTE | 2021-01-28 01:16 | P.HP ---
Certification for Inpatient Patient admitted to: Observation With expected LOS: <2 Midnights Patient will require the following post-hospital care: None Practitioner: I am a practitioner with admitting privileges, knowledge of patient current condition, hospital course, and medical plan of care. Services: Services provided to patient in accordance with Admission requirements found in Title 42 Section 412.3 of the Code of Federal Regulations Patient History Date of Service: 01/28/21 Primary Care Provider: Dann Reason for admission: syncope History of Present Illness: Mr. Power is a 55 yo male with HTN, HLD, T2DM, CHF, MAUREEN on CPAP, h/o CVA, seizures, and h/o atrial flutter here today for a syncopal episode. Right now, he feels weak, fatigued, disoriented. Patient snores very loudly with episodes of apnea, falls asleep very quickly. He is AOx4. He was hypotensive on arrival now improved with IVF. K 5.5. Cr 1.97. GFR 35. Glu 334. Head CT wnl. CXR with possible small infiltrate in the right lung base. He talked to his at noon and said he wasn't feeling well. She says his speech was steadily more slurred each time she spoke to him. She said his speech was slow and at times he was not making sense. He said he was going to take a nap around 4pm then she said her daughter found him at 5pm, rolled out of bed and on the floor. She says he was difficult to arouse but was awake by the time the ambulance arrived. She thinks he was out for 10-15 minutes. He remembers going to sleep but doesn't remember passing out. He says he knows when his daughter came to his aid, but could not see, hear or move. Earlier today, he was working on a fence with his son and was feeling fine at that time. He denies palpitations, blurry vision, back, or chest pain, diaphoresis, hemetemesis, melena, incontinence. He ate once today. A few days ago, he says he had a seizure. He says he felt dizzy and dropped to his knees. He didn't shake or convulse. says when he has a seizure his eyes will roll back, his arms will fall to the side, and then he will start snoring. No known trigger for these episodes. She is able to wake him up. This first occurred in Sep 2019 when she could not wake him up after one of these episodes. [facility] diagnosed him with seizures and he has been on Keppra ever since, but has not seen a neurologist. She says he is very disoriented at night and has bad dreams and is often not feeling well. He does not drive and works a lot. Allergies diltiazem [From Cardize] Allergy (Intermediate, Verified 03/28/17 01:35) Hives Home Medications: Duloxetine [Cymbalta *] 90 mg PO DAILY 07/08/14 Glipizide [Glipizide ER] 10 mg PO BIDWM 07/08/14 Metformin HCl [Metformin ER Osmotic] 1,000 mg PO BIDWM 07/08/14 Multivitamin [Multivitamins] 1 each PO BID 07/08/14 [place]-3 Fatty Acids/Fish Oil [Fish Oil 1,000 mg Softgel] 1 each PO BID 07/08/14 Pregabalin [Lyrica*] 100 mg PO DAILY 07/08/14 Testosterone Cypionate [Depo-Testosterone] 100 mg IM SEECOM 07/08/14 lamoTRIgine [Lamictal*] 100 mg PO DAILY 07/08/14 Aspirin [Aspirin EC 81 MG] 81 mg PO DAILY #30 tablet. 03/28/17 Cyclobenzaprine [Flexeril*] 20 mg PO BID 03/28/17 Metoprolol Tartrate [Lopressor*] 25 mg PO BID 6AM 6PM #60 tab 03/28/17 Vitamin B Complex [B Complex] 1 unit IM SEECOM 03/28/17 - Past Medical/Surgical History Diabetic: Yes -: bipolar -: htn -: stroke -: MAUREEN on CPAP -: HLD -: T2DM -: CHF -: atrial flutter -: neuropathy -: 'seizures' -: rt and left knee -: l elbow -: vasectomy -: ventral hernia repair x2 -: r hand -: r and l rotator cuff -: tonsillectomy -: hernia repair x3 - Family History Father -: Diabetes, Cancer Mother -: Diabetes - Social History Smoking Status: Never smoker (dips tobacco) Alcohol use: No CD- Drugs: No Caffeine use: No Place of Residence: Home Review of Systems General: Weakness, Malaise, As per HPI Eyes: Unremarkable ENT: Unremarkable Respiratory: Unremarkable Cardiovascular: Unremarkable Gastrointestinal: Unremarkable Genitourinary: Unremarkable Musculoskeletal: Unremarkable Integumentary: Unremarkable Neurological: Weakness, Change in Speech, Seizures, As per HPI Lymphatics: Unremarkable Physical Examination - Physical Exam General: In no apparent distress, Oriented x3, Cooperative, Other (able to answer questions, AOx4, lethargic) HEENT: Atraumatic, Normocephalic, PERRLA, Mucous membr. moist/pink, EOMI, Sclerae nonicteric Neck: Supple, 2+ carotid pulse no bruit, JVD not distended, No Thyromegaly, No LAD Respiratory: Clear to auscultation bilaterally, Normal air movement Cardiovascular: No edema, Normal pulses, Regular rate/rhythm, Normal S1 S2, No gallops, No rubs, No murmurs Capillary refill: <2 Seconds Gastrointestinal: Normal bowel sounds, Soft and benign, Non-distended, No ascites, No tenderness, No masses, No rebound, No guarding Musculoskeletal: No clubbing, No swelling, No contractures, No erythema, No tenderness, No warmth Integumentary: No rashes, No breakdown, No significant lesion, No tenderness/swelling, No erythema, No warmth, No cyanosis Neurological: Normal strength at 5/5 x4 extr, Normal tone, Sensation intact, Cranial nerves 3-12 intact, Abnormal speech, Abnormal affect Lymphatics: No axilla or inguinal lymphadenopathy - Studies Laboratory Data (last 24 hrs) 01/27/21 22:58: Sodium 138, Potassium 5.3 H, BUN 21 H, Creatinine 1.91 H, Glucose 429 H* 01/27/21 18:15: PT 10.7, INR 0.93 01/27/21 18:15: WBC 8.40, Hgb 14.9, Hct 44.5, Plt Count 197 01/27/21 18:15: Sodium 137, Potassium 5.5 H, BUN 20 H, Creatinine 1.97 H, Glucose 340 H, Magnesium 2.1, Total Bilirubin 0.5, AST 42 H, ALT 39, Alkaline Phosphatase 86 Assessment and Plan - Problems (Diagnosis) (1) MAUREEN on CPAP Current Visit: Yes Status: Chronic (2) Hyperlipidemia Current Visit: Yes Status: Chronic Qualifiers: Hyperlipidemia type: unspecified Qualified Code(s): E78.5 - Hyperlipidemia, unspecified (3) CHF (congestive heart failure) Current Visit: Yes Status: Chronic Qualifiers: Heart failure type: unspecified Heart failure chronicity: unspecified Qualified Code(s): I50.9 - Heart failure, unspecified (4) Neuropathy Current Visit: Yes Status: Chronic (5) Bipolar disorder Current Visit: Yes Status: Chronic Qualifiers: Active/Remission status: remission status unspecified Qualified Code(s): F31.9 - Bipolar disorder, unspecified (6) History of CVA (cerebrovascular accident) Current Visit: Yes Status: Chronic (7) Syncope Current Visit: Yes Status: Acute Qualifiers: Syncope type: unspecified Qualified Code(s): R55 - Syncope and collapse (8) Seizures Current Visit: Yes Status: Acute (9) ESA (acute kidney injury) Current Visit: Yes Status: Acute (10) Hyperkalemia Current Visit: Yes Status: Acute (11) Atrial flutter Onset Date: 03/28/17 Current Visit: No Status: Chronic Qualifiers: Atrial flutter type: unspecified Qualified Code(s): I48.92 - Unspecified atrial flutter (12) Diabetes mellitus Current Visit: No Status: Chronic Qualifiers: Diabetes mellitus type: type 2 Diabetes mellitus 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 Trending troponins. Had episode of atrial flutter a few years ago, and was supposed to start anticoagulation at that time but unable to verify home meds at this time. Orthostatic VS in the AM. Continue with fluid hydration. Continue to monitor BP. Will hold home BP meds for now due to hypotensive episode. BG elevated on arrival, K 5.3. Given insulin, will recheck BG and potassium when patient gets to the floor. Moderate sliding scale and Accuchecks. Neurology consulted. Patient is on Keppra and reports frequent seizures but has never seen a neurologist. CT head wnl. Given his symptoms and history, I suspect narcolepsy at this time. Nephrology consulted for ESA. Given 2L of fluid in the ER. Will continue with maintenance fluids. Continue with CPAP at bedtime for MAUREEN Continue with home medications for CHF, neuropathy, bipolar disorder, CVA, HLD. Discharge Plan: Home Plan to discharge in: 48 Hours - Advance Directives Does patient have a Living Will: No Does patient have a Durable POA for Healthcare: No - Code Status/Comfort Care Code Status Assessed: Yes (full code) Critical Care: No Time Spent Managing Pts Care (In Minutes): 70
[2021-01-28 01:57] VITALS: BMI 6200.0
[2021-01-28] MEDS ORDERED: NA CHLORIDE 0.9% 1,000 ML IV SCH (02:18)
[2021-01-28] MEDS ORDERED: ONDANSETRON 4 MG/2 ML VIAL IV PRN (02:18)
[2021-01-28] MEDS ORDERED: MORPHINE 2 MG/ML SYR IV PRN (02:18)
[2021-01-28] MEDS ORDERED: ACETAMINOPHEN 500 MG TAB PO PRN (02:18)
[2021-01-28 03:56] LABS: Absolute Lymphocytes (CBC) 2.3 K/uL (0.7-4.9); Basophils % 0.7 % (0-1.3); Hematocrit 42.3 % (39.6-49.0); Lymphocytes % 31.4 % (15.3-44.8); MPV 8.9 fL (7.6-11.3); RBC Red Blood Cell Count 4.68 M/uL (4.33-5.43)
[2021-01-28 04:19] LABS: Albumin 3.2 g/dL (3.4-5.0); Bilirubin Total 0.6 mg/dL (0.2-1.0); Phosphorus 2.4 mg/dL (2.5-4.9); Potassium 4.6 mmol/L (3.5-5.1); Protein, Total 5.8 g/dL (6.4-8.2)
[2021-01-28] MEDS: NA CHLORIDE 0.9% 1,000 ML IV SCH ×2 (04:20→16:00)
[2021-01-28 04:37] LABS: Troponin I < 0.02 ng/mL (0.0-0.045)
[2021-01-28] MEDS: INSULIN -REGULAR HUMAN 50 UNIT/0.5 ML ML SQ SCH ×3 (08:31→16:02)
[2021-01-28] MEDS: HEPARIN 5000 UNIT/ML 1 ML VIAL SQ SCH ×2 (08:33→16:00)
[2021-01-28] MEDS: POTASS/SODIUM PHOSPHATE 1 PKT POWD.PACK PO SCH ×3 (08:33→12:21)
[2021-01-28] MEDS ORDERED: ASPIRIN EC 81 MG TAB PO SCH (09:00)
[2021-01-28 09:07] VITALS: O2SAT 97
--- NOTE | 2021-01-28 10:16 | EKG ---
Test Date: 2021-01-27 Test Time: 18:21:16 Addictions Counselor Assistant: KRISTIN MEASUREMENT RESULTS: Intervals: Rate: 78 NC: 178 QRSD: 92 QT: 342 QTc: 389 Randall: P: 28 NC: 178 QRS: 30 T: 36 INTERPRETIVE STATEMENTS: Normal sinus rhythm Cannot rule out Anterior infarct, age undetermined Abnormal ECG Compared to ECG 03/28/2017 07:18:15 No significant changes Electronically Signed On 01-28-21 10:15:16 CDT by Abhijeet Nuno
[2021-01-28 17:34] VITALS: BP 155/78; TEMP 97.1
--- NOTE | 2021-02-01 19:18 | P.DS ---
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 Power is a 55 yo male with HTN, HLD, T2DM, CHF, MAUREEN on CPAP, h/o CVA, seizures, and h/o atrial flutter here today for a syncopal episode. Right now, he feels weak, fatigued, disoriented. Patient snores very loudly with episodes of apnea, falls asleep very quickly. He is AOx4. He was hypotensive on arrival now improved with IVF. K 5.5. Cr 1.97. GFR 35. Glu 334. Head CT wnl. CXR with possible small infiltrate in the right lung base. He talked to his at noon and said he wasn't feeling well. She says his speech was steadily more slurred each time she spoke to him. She said his speech was slow and at times he was not making sense. He said he was going to take a nap around 4pm then she said her daughter found him at 5pm, rolled out of bed and on the floor. She says he was difficult to arouse but was awake by the time the ambulance arrived. She thinks he was out for 10-15 minutes. He remembers going to sleep but doesn't remember passing out. He says he knows when his daughter came to his aid, but could not see, hear or move. Earlier today, he was working on a fence with his son and was feeling fine at that time. He denies palpitations, blurry vision, back, or chest pain, diaphoresis, hemetemesis, melena, incontinence. He ate once today. A few days ago, he says he had a seizure. He says he felt dizzy and dropped to his knees. He didn't shake or convulse. says when he has a seizure his eyes will roll back, his arms will fall to the side, and then he will start snoring. No known trigger for these episodes. She is able to wake him up. This first occurred in Sep 2019 when she could not wake him up after one of these episodes. [facility] diagnosed him with seizures and he has been on Keppra ever since, but has not seen a neurologist. She says he is very disoriented at night and has bad dreams and is often not feeling well. He does not drive and works a lot. Hospital Course: Patient did well during hospital stay. Patient was seen by cardiology and they recommend no further intervention at this time. Most likely, patient had a seizure. Patient needs to take his seizure medications as prescribed. May need adjustments made as well. Patient will be discharged with outpatient followup. Vital Signs/Physical Exam: Temp Pulse Resp BP Pulse Ox 97.1 F 65 20 155/78 H 97 01/28/21 16:00 01/28/21 16:00 01/28/21 16:00 01/28/21 16:00 01/28/21 16:00 General: Alert, In no apparent distress, Oriented x3 Laboratory Data at Discharge: WBC 7.20 K/uL (4.3-10.9) D 01/28/21 03:23 Hgb 14.2 g/dL (13.6-17.9) 01/28/21 03:23 Hct 42.3 % (39.6-49.0) 01/28/21 03:23 Plt Count 154 K/uL (152-406) D 01/28/21 03:23 PT 10.7 SECONDS (9.5-12.5) 01/27/21 18:15 INR 0.93 01/27/21 18:15 Sodium 137 mmol/L (136-145) 01/28/21 03:23 Potassium 4.6 mmol/L (3.5-5.1) 01/28/21 03:23 BUN 21 mg/dL (7-18) H 01/28/21 03:23 Creatinine 1.74 mg/dL (0.55-1.3) H 01/28/21 03:23 Glucose 323 mg/dL (74-106) H 01/28/21 03:23 Phosphorus 2.4 mg/dL (2.5-4.9) L 01/28/21 03:23 Magnesium 2.1 mg/dL (1.8-2.4) 01/27/21 18:15 Total Bilirubin 0.6 mg/dL (0.2-1.0) 01/28/21 03:23 AST 25 U/L (15-37) 01/28/21 03:23 ALT 35 U/L (12-78) 01/28/21 03:23 Alkaline Phosphatase 79 U/L (45-117) 01/28/21 03:23 Troponin I < 0.02 ng/mL (0.0-0.045) 01/28/21 10:45 Triglycerides 166 mg/dL (<150) H 01/28/21 03:23 Cholesterol 106 mg/dL (<200) 01/28/21 03:23 HDL Cholesterol 30 mg/dL (40-60) L 01/28/21 03:23 Cholesterol/HDL Ratio 3.53 01/28/21 03:23 Home Medications: Duloxetine [Cymbalta *] 60 mg PO DAILY 07/08/14 Glipizide [Glipizide ER] 10 mg PO BIDWM 07/08/14 Metformin HCl [Metformin ER Osmotic] 1,000 mg PO BIDWM 07/08/14 Testosterone Cypionate [Depo-Testosterone] 100 mg IM SEECOM 07/08/14 Atorvastatin Calcium [Lipitor] 1 tab PO BEDTIME 01/28/21 Fenofibrate [Tricor*] 1 tab PO DAILY 01/28/21 Furosemide [Lasix] 1 tab PO DAILY 01/28/21 Gabapentin 1 tab PO TID 01/28/21 Levetiracetam [Keppra] 1 tab PO SEECOM 01/28/21 Lisinopril [Zestril] 1 tab PO DAILY 01/28/21 cloNIDine HCL [Clonidine HCl] 1 tab PO Q8H 01/28/21 Physician Discharge Instructions: -OK TO DC IV AND DC HOME -FOLLOW-UP WITH PCP IN 1-2 WEEKS -FOLLOW-UP WITH NEUROLOGY & CARDIOLOGY IN 1-2 WEEKS -PLEASE MAKE SURE ALL DIAGNOSTIC STUDIES ARE AVAILABLE AND HAVE BEEN REVIEWED WITH PATIENT PRIOR TO DISCHARGE -RETURN TO THE ER IF symptoms worsen -CALL DR. PEREZ AT [phone] IF ANY QUESTIONS REGARDING HOSPITAL STAY -PLEASE CALL THE FLOOR AT [phone] IF ANY MEDICATION OR NURSING QUESTIONS Diet: AHA Activity: Fall precautions Followup: Abhijeet Nuno MD [ACTIVE - CAN ADMIT] - Flo Rosas MD [ASSOCIATE-ACTIVE - CAN ADMIT] - Dann DORAN,Jj Eid DO [Primary Care Provider] - Time spent managing pt's care (in minutes): 35
== END 2021-01-28 19:00 | disposition home or self-care (01) | DRG 101 ==
LOC: ER 18:05 → ERHOLD 23:05 → 4TH 01-28 01:27 → OBSVTOIN 01-28 11:32
PROVIDERS: ADMIT Hospitalist; ATTEND Hospitalist
PROC: 5A09357 Assistance with Respiratory Ventilation, Less than 24 Consecutive Hours, Continuous Positive Airway Pressure (ICD-10-PCS; principal; 2021-01-28)
DX: R56.9 Unspecified convulsions (principal); N17.9 Acute kidney failure, unspecified; I48.92 Unspecified atrial flutter; Z68.41 Body mass index [BMI] 40.0-44.9, adult; E66.9 Obesity, unspecified; E87.5 Hyperkalemia; F31.9 Bipolar disorder, unspecified; E11.40 Type 2 diabetes mellitus with diabetic neuropathy, unspecified; G47.33 Obstructive sleep apnea (adult) (pediatric); I11.0 Hypertensive heart disease with heart failure; I50.9 Heart failure, unspecified; I95.9 Hypotension, unspecified; F17.220 Nicotine dependence, chewing tobacco, uncomplicated; I25.2 Old myocardial infarction; R55 Syncope and collapse; Z86.73 Personal history of transient ischemic attack (TIA), and cerebral infarction without residual deficits; Z79.84 Long term (current) use of oral hypoglycemic drugs; Z88.8 Allergy status to other drugs, medicaments and biological substances; Z79.899 Other long term (current) drug therapy; Z20.822 Contact with and (suspected) exposure to COVID-19
CPT/HCPCS: 36415; 51702; 70450; 71045; 80048; 80053; 80061; 80076; 80177; 80307; 81003; 81015; 82550; 82947; 83036; 83605; 83735; 83880; 84100; 84145; 84439; 84443; 84484; 85025; 85610; 87040; 93005; 94660; 94760; 96361; 96374; 99285; G0378; J1644; J2270; J7030; U0003

== ENCOUNTER 2022-08-19 13:47 | Emergency (ER) | payer OTHER, SELFPAY ==
--- OUTSIDE RECORDS SUMMARY | 2022-08-19 13:52 | XMS REPORT | Continuity of Care Document ---
:1965 Author Organization [facility] t Address [address] [place] [address] Care Team Providers Name Role Phone JJ QUIGLEY Primary Care Physician Unavailable FANY Attending Clinician Unavailable Juliano Vee Attending Clinician JULIANO MIRANDA Attending Clinician Unavailable Jj Quigley Attending Clinician LAURI CARDONA Attending Clinician Unavailable Doctor Unassigned, [place] Attending Clinician Unavailable Mitch Hill MD Attending Clinician ARIE RUBIN Attending Clinician Unavailable OTONIEL WATKINS Attending Clinician Unavailable FANY Admitting Clinician Unavailable ARIE RUBIN Admitting Clinician Unavailable OTONIEL WATKINS Admitting Clinician Unavailable Payers Payer Name Policy Type Policy Number Effective Date Expiration Date S ource Problems Condition Condition Condition Status Onset Resolution Last Treating Co mments Source Name Details Category Date Date Treatment Clinician Date Morbid Morbid Disease Active 2019- Univers obesity obesity 2-27 [place] of [place] mass index 00 [place] dical of of Branch 40.0-49.9 40.0-49.9 AMS AMS Disease Active 2018-10 Univers (altered (altered 2-27 ity of mental mental 00:00: [place] status) status) 00 Medical Branch TIA TIA Disease Active [facility] (transient (transient 5-01 [place] ischemic ischemic 00:00: Medica l attack) attack) 00 [place] Speech Speech Disease Active [facility] abnormalit abnormalit 4-30 [place] y y 00:00: Medical 00 [place] Bipolar Bipolar Disease Active [facility] disorder disorder [facility] Allergies, Adverse Reactions, Alerts Allergy Allergy Status Severity Reaction(s) Onset Inactive Treating Comm ents Source Name Type Date Date Clinician NO KNOWN Drug Active [facility] ALLERGIE Class ity of [facility] Social History Social Habit Start Date Stop Date Quantity Comments Source History of tobacco Snuff User Univ sity of use [facility] Cigarettes smoked 2019-11-23 2019-11-23 [facility] ity of current (pack per 00:00:00 00:00:00 [place] ) - Reported Branch Cigarette 2019-11-23 2019-11-23 [place] of pack-years 00:00:00 00:00:00 [facility] Alcohol intake 2019-11-23 2019-11-23 [place] of 00:00:00 00:00:00 [facility] Alcohol Comment 2019-11-23 2019-11-23 Patient reports Univ ersity of 00:00:00 00:00:00 past alcohol [facility] l abuse [place] Sex Assigned At [address] [place] 00:00:00 00:00:00 [facility] Smoking Status Start Date Stop Date Source Former smoker 2019-11-23 00:00:00 2019-11-23 00:00:00 Universi [facility] Medications Ordered Filled Start Stop Current Ordering Indication Dosage Frequency Signature Comments Components Source Medication Medication Date Date Medication? Clinician (SIG) Name Name acetaminoph 2018-10 Yes 1{tbl} Take 1 Un piper en-codeine 2-28 tablet by ity of 300-30 mg 22:55: mouth [place] tablet 03 every 4 Medical (four) Branch hours as needed. TESTOSTERON 2018-10 Yes by Univ s E IM 2-28 Intramuscu ity of 22:55: lar route. [address] Branch lisinopril 2018-10 Yes 10mg Take 10 mg U nivers 10 mg 2-28 by mouth ity of tablet 22:55: daily. [address] Branch glipiZIDE 2018-10 Yes 10mg Take 10 mg Un piper 10 mg 2-28 by mouth ity of tablet 22:55: daily. [address] Branch metFORMIN 2018-10 Yes 1000mg Take 1,000 Univers 1,000 mg 2-28 mg by ity of tablet 22:55: mouth 2 [place] (two) Medical times Branch daily with meals. gabapentin 2018-10 Yes 600mg Take 600 Un piper 600 mg 2-28 mg by ity of tablet 22:55: mouth 3 [place] (three) Medical times Branch daily. CYANOCOBALA 2018-10 Yes Inject as U nivers MIN, 2-28 directed. ity of VITAMIN 22:55: [place] B-12, Medical (VITAMIN Branch B-12 INJECTION) lamoTRIgine 2018-10 Yes 200mg Take 200 U nivers 200 mg 2-28 mg by ity of tablet 22:55: mouth [place] 03 daily. Medical Branch acetaminoph 2018-10 Yes 1{tbl} Take 1 Un piper en-codeine 2-28 tablet by ity of 300-30 mg 22:55: mouth [place] [facility] 03 every 4 Medical (four) Branch hours as needed. TESTOSTERON 2018-10 Yes by Univer s E IM 2-28 Intramuscu ity of 22:55: lar route. [address] Branch lisinopril 2018-10 Yes 10mg Take 10 mg U nivers 10 mg 2-28 by mouth ity of tablet 22:55: daily. [address] Branch glipiZIDE 2018-10 Yes 10mg Take 10 mg Un piper 10 mg 2-28 by mouth ity of tablet 22:55: daily. [address] Branch metFORMIN 2018-10 Yes 1000mg Take 1,000 Univers 1,000 mg 2-28 mg by ity of tablet 22:55: mouth 2 [place] [address] (two) Medical times Branch daily with meals. gabapentin 2018-10 Yes 600mg Take 600 Un piper 600 mg 2-28 mg by ity of tablet 22:55: mouth 3 [place] [address] (three) Medical times Branch daily. CYANOCOBALA 2018-10 Yes Inject as U nivers MIN, 2-28 directed. ity of VITAMIN 22:55: [place] Medical (VITAMIN Branch B-12 INJECTION) lamoTRIgine 2018-10 Yes 200mg Take 200 U nivers 200 mg 2-28 mg by ity of tablet 22:55: mouth [place] 03 daily. Medical Branch acetaminoph 2018-10 Yes 1{tbl} Take 1 Un piper en-codeine 2-28 tablet by ity of 300-30 mg 22:55: mouth [place] tablet 03 every 4 Medical (four) Branch hours as needed. TESTOSTERON 2018-10 Yes by Univer s E IM 2-28 Intramuscu ity of 22:55: lar route. [address] Branch lisinopril 2018-10 Yes 10mg Take 10 mg U nivers 10 mg 2-28 by mouth ity of tablet 22:55: daily. [address] Branch glipiZIDE 2018-10 Yes 10mg Take 10 mg Un piper 10 mg 2-28 by mouth ity of tablet 22:55: daily. [place] [address] Medical Branch metFORMIN 2018-10 Yes 1000mg Take 1,000 Univers 1,000 mg 2-28 mg by ity of tablet 22:55: mouth 2 [place] [address] (two) Medical times Branch daily with meals. gabapentin 2018-10 Yes 600mg Take 600 Un piper 600 mg 2-28 mg by ity of tablet 22:55: mouth 3 [place] (three) Medical times Branch daily. CYANOCOBALA 2018-10 Yes Inject as U nivers MIN, 2-28 directed. ity of VITAMIN 22:55: [place] Medical (VITAMIN Branch B-12 INJECTION) lamoTRIgine 2018-10 Yes 200mg Take 200 U nivers 200 mg 2-28 mg by ity of tablet 22:55: mouth [place] 03 daily. Medical Branch acetaminoph 2018-10 Yes 1{tbl} Take 1 Un piper en-codeine 2-28 tablet by ity of 300-30 mg 22:55: mouth [place] tablet 03 every 4 Medical (four) Branch hours as needed. TESTOSTERON 2018-10 Yes by Univer s E IM 2-28 Intramuscu ity of 22:55: lar route. [address] Branch lisinopril 2018-10 Yes 10mg Take 10 mg U nivers 10 mg 2-28 by mouth ity of tablet 22:55: daily. [address] Branch glipiZIDE 2018-10 Yes 10mg Take 10 mg Un piper 10 mg 2-28 by mouth ity of tablet 22:55: daily. [address] Branch metFORMIN 2018-10 Yes 1000mg Take 1,000 Univers 1,000 mg 2-28 mg by ity of tablet 22:55: mouth 2 [place] [address] (two) Medical times Branch daily with meals. gabapentin 2018-10 Yes 600mg Take 600 Un piper 600 mg 2-28 mg by ity of tablet 22:55: mouth 3 [place] [address] (three) Medical times Branch daily. CYANOCOBALA 2018-10 Yes Inject as U nivers MIN, 2-28 directed. ity of VITAMIN 22:55: [facility]-12, Medical (VITAMIN Branch B-12 INJECTION) lamoTRIgine 2018-10 Yes 200mg Take 200 U nivers 200 mg 2-28 mg by ity of tablet 22:55: mouth [place] 03 daily. Medical Branch acetaminoph 2018-10 Yes 1{tbl} Take 1 Un piper en-codeine 2-28 tablet by ity of 300-30 mg 22:55: mouth [place] tablet 03 every 4 Medical (four) Branch hours as needed. TESTOSTERON 2018-10 Yes by Univer s E IM 2-28 Intramuscu ity of 22:55: lar route. [address] Branch lisinopril 2018-10 Yes 10mg Take 10 mg U nivers 10 mg 2-28 by mouth ity of tablet 22:55: daily. [address] glipiZIDE 2018-10 Yes 10mg Take 10 mg Un piper 10 mg 2-28 by mouth ity of tablet 22:55: daily. [address] metFORMIN 2018-10 Yes 1000mg Take 1,000 Univers 1,000 mg 2-28 mg by ity of tablet 22:55: mouth 2 [place] [address] (two) Medical times [place] daily with meals. gabapentin 2018-10 Yes 600mg Take 600 Un piper 600 mg 2-28 mg by ity of tablet 22:55: mouth 3 [place] [address] (three) Medical times Branch daily. CYANOCOBALA 2018-10 Yes Inject as U nivers MIN, 2-28 directed. ity of VITAMIN 22:55: [place] B-12, Medical (VITAMIN Branch B-12 INJECTION) lamoTRIgine 2018-10 Yes 200mg Take 200 U nivers 200 mg 2-28 mg by ity of tablet 22:55: mouth [place] 03 daily. Medical Branch acetaminoph 2018-10 Yes 1{tbl} Take 1 Un piper en-codeine 2-28 tablet by ity of 300-30 mg 22:55: mouth [place] tablet 03 every 4 Medical (four) Branch hours as needed. TESTOSTERON 2018-10 Yes by Univer s E IM 2-28 Intramuscu ity of 22:55: lar route. [address] Branch lisinopril 2018-10 Yes 10mg Take 10 mg U nivers 10 mg 2-28 by mouth ity of tablet 22:55: daily. [address] Branch glipiZIDE 2018-10 Yes 10mg Take 10 mg Un piper 10 mg 2-28 by mouth ity of tablet 22:55: daily. [place] [address] Medical Branch metFORMIN 2018-10 Yes 1000mg Take 1,000 Univers 1,000 mg 2-28 mg by ity of tablet 22:55: mouth 2 [place] [address] (two) Medical times Branch daily with meals. gabapentin 2018-10 Yes 600mg Take 600 Un piper 600 mg 2-28 mg by ity of tablet 22:55: mouth 3 [place] [address] (three) Medical times Branch daily. CYANOCOBALA 2018-10 Yes Inject as U nivers MIN, 2-28 directed. ity of VITAMIN 22:55: [place] B-12, 03 Medical (VITAMIN Branch B-12 INJECTION) lamoTRIgine 2018-10 Yes 200mg Take 200 U nivers 200 mg 2-28 mg by ity of tablet 22:55: mouth [place] 03 daily. Medical Branch acetaminoph 2018-10 Yes 1{tbl} Take 1 Un pi[place] en-codeine 2-28 tablet by ity of 300-30 mg 22:55: mouth [place] tablet 03 every 4 Medical (four) Branch hours as needed. TESTOSTERON 2018-10 Yes by Univer s E IM 2-28 Intramuscu ity of 22:55: lar route. [address] Branch lisinopril 2018-10 Yes 10mg Take 10 mg U nivers 10 mg 2-28 by mouth ity of tablet 22:55: daily. [place] [facility] Branch glipiZIDE 2018-10 Yes 10mg Take 10 mg Un piper 10 mg 2-28 by mouth ity of tablet 22:55: daily. [place] [address] Medical Branch metFORMIN 2018-10 Yes 1000mg Take 1,000 Univers 1,000 mg 2-28 mg by ity of tablet 22:55: mouth 2 [place] (two) Medical times Branch daily with meals. gabapentin 2018-10 Yes 600mg Take 600 Un piper 600 mg 2-28 mg by ity of tablet 22:55: mouth 3 [place] (three) Medical times Branch daily. CYANOCOBALA 2018-10 Yes Inject as U nivers MIN, 2-28 directed. ity of VITAMIN 22:55: [place] B-12, 03 Medical (VITAMIN Branch B-12 INJECTION) lamoTRIgine 2018-10 Yes 200mg Take 200 U nivers 200 mg 2-28 mg by ity of tablet 22:55: mouth [place] daily. Medical Branch glipiZIDE Yes 10mg Take [address] (GLUCOTROL) 5-01 by mouth 2 [place] 10 MG 17:14: (two) Medical tablet 26 times Center daily before meals. lisinopril Yes 10mg QD Take [address] (PRINIVIL,Z 5-01 by mouth [facility] ESTRIL) 10 17:14: daily. Medic al MG tablet 26 Center gabapentin Yes 600mg Q.5D Take [address] (NEURONTIN) 5-01 mg by [facility] 600 MG 17:14: mouth 2 Medical tablet 26 (two) Center times daily. metFORMIN Yes 1000mg Take 1,[address] [facility] (GLUCOPHAGE 5-01 mg by [facility] ) 1000 MG 17:14: mouth 2 Medic al tablet 26 (two) Center times daily with breakfast and dinner. multivitami 2017 Yes 1{capsu QD Take [address] n capsule 5-01 le} capsule by Luke s 17:14: mouth Medical 26 daily. Center omega-3 2016- Yes Take by [facility] fatty 5-01 mouth. [facility] acids-vitam 17:14: Medica l in E 1,000 26 Center mg Cap b complex 2017- Yes 1{tbl} Q.5D Take [address] [facility] vitamins 5-01 tablet by [facility] tablet 17:14: mouth 2 Medical 26 (two) Center times daily. DULoxetine Yes 60mg QD Take [address] (CYMBALTA) 5-01 by mouth [facility] 60 MG 17:14: daily. Medical capsule 26 [place] lamoTRIgine 2016-0 Yes 100mg QD Take [address] (LAMICTAL) 5-01 mg by [facility] 100 MG 17:14: mouth Medical tablet 26 daily. [place] cyclobenzap 2017-0 Yes 10mg Q.5D Take [address] rine 5-01 by mouth 2 [facility] (FLEXERIL) 17:14: (two) Medica l 10 MG 26 times Center tablet daily . acetaminoph 2017 Yes 1{tbl} Take 1 Un piper en-codeine 1-19 tablet by ity of (TYLENOL-CO 00:00: mouth [place] DEINE #3) 00 every 4 Medical 300-30 mg (four) Branch tablet hours as needed for Pain (scale 4-6) or Pain (scale 7-10). acetaminoph Yes 1{tbl} Take 1 Un piper en-codeine 1-19 tablet by ity of (TYLENOL-CO 00:00: mouth [place] DEINE #3) 00 every 4 Medical 300-30 mg (four) Branch tablet hours as needed for Pain (scale 4-6) or Pain (scale 7-10). acetaminoph 0 Yes 1{tbl} Take 1 Un piper en-codeine 1-19 tablet by ity of (TYLENOL-CO 00:00: mouth [place] DEINE #3) 00 every 4 Medical 300-30 mg (four) Branch tablet hours as needed for Pain (scale 4-6) or Pain (scale 7-10). acetaminoph 2016-0 Yes 1{tbl} Take 1 Un pi[place] en-codeine 1-19 tablet by ity of (TYLENOL-CO 00:00: mouth [place] DEINE #3) 00 every 4 Medical 300-30 mg (four) Branch tablet hours as needed for Pain (scale 4-6) or Pain (scale 7-10). acetaminoph 2017-0 Yes 1{tbl} Take 1 Un pi[place] en-codeine 1-19 tablet by ity of (TYLENOL-CO 00:00: mouth [place] DEINE #3) 00 every 4 Medical 300-30 mg (four) Branch tablet hours as needed for Pain (scale 4-6) or Pain (scale 7-10). acetaminoph 2017 Yes 1{tbl} Take 1 Un pi[place] en-codeine 1-19 tablet by ity of (TYLENOL-CO 00:00: mouth [place] DEINE #3) 00 every 4 Medical 300-30 mg (four) Branch tablet hours as needed for Pain (scale 4-6) or Pain (scale 7-10). acetaminoph 2016-0 Yes 1{tbl} Take 1 Un pi[place] en-codeine 1-19 tablet by ity of (TYLENOL-CO 00:00: mouth [place] DEINE #3) 00 every 4 Medical 300-30 mg (four) Branch tablet hours as needed for Pain (scale 4-6) or Pain (scale 7-10). Vital Signs Vital Name Observation Time Observation Value Comments Source Systolic blood 2019-11-23 20:47:00 155 [facility]Hg[facility] 2019-11-23 20:47:00 77 [facility]Hg[facility] 2019-11-23 20:47:00 102 /min [facility] Body temperature 2019-11-23 20:47:00 37 Doris [facility] Respiratory rate 2019-11-23 20:47:00 18 /min [facility] Body height 2019-11-23 20:47:00 182.9 cm [facility] Body weight 2019-11-23 20:47:00 136.079 kg [facility] BMI 2019-11-23 20:47:00 40.69 kg/m2 [facility] Procedures Procedure Date / Time Performing Clinician Source Performed AUTHORIZATION FOR 2019-12-01 06:01:00 Doctor Unassigned, No Univ [facility] RELEASE OF PHI Name [facility] Branch Encounters Start End Encounter Admission Attending Care Care Encounter Source Date/Time Date/Time Type Type Clinicians Facility Department ID 2021-11-15 2021-11-15 Outpatient [facility] [id number] [place] 08:00:00 08:00:00 [facility] 2020-11-02 2020-11-02 Outpatient [facility] [id number] [place] 07:48:00 07:48:00 H [id number] [facility] 2020-05-21 2020-05-21 Outpatient [facility] [id number] [place] 01:17:00 01:17:00 H [id number] [facility] 2020-01-18 2020-01-18 Outpatient [facility] [id number] [place] 12:24:00 12:24:00 H [id number] [facility] 2020-01-18 2020-01-18 [facility] [id number] 00:00:00 00:00:00 [facility] [id number] [place] [id number] [facility] [phone] Primary & 370 Specialty Care 2020-01-18 2020-01-18 Telephone [facility] [id number] Univers 00:00:00 00:00:00 [facility] [id number] it y of [place] [id number] [facility] s City [phone] [facility] Primary & 370 Branch Specialty Care 2020-01-18 2020-01-18 Telephone [facility] [id number] Univers 00:00:00 00:00:00 [facility] [id number] it y of [place] [id number] [facility] [phone] [facility] Primary & 370 Branch Specialty Care 2020-01-15 2020-01-15 Outpatient R BRUNILDA [facility] [id number] Univers 13:00:00 13:00:00 [facility] ity [facility] 2020-01-15 2020-01-15 Telephone [facility] [id number] Univers 00:00:00 00:00:00 [facility] [id number] ity of [place] [id number] [facility] [phone] [facility] [address] Branch [address] 2020-01-14 2020-01-14 Outpatient R DULCE [facility] [id number] Univers 18:45:00 18:45:00 LAURI ity o f [facility] 2019-12-01 2019-12-01 Orders Doctor MALDONADO [id number] Univers 00:00:00 00:00:00 Only Unassigned, DERIC [id number] ity of [place] [facility] [id number] Amari as [phone] [address] 2019-11-23 2019-11-23 Office [facility] [id number] [facility] 13:07:52 14:33:05 Visit Mitch Vital [id number] ity of [place] [id number] Jj Almendarez [phone] Ak dical nal 092 [facility] 2019-11-02 2019-11-02 Outpatient MH MED [id number] 05:44:00 05:44:00 [facility] 2019-10-16 2019-10-17 Outpatient X ARIE RUBIN [facility] [id number] Univers 13:44:57 15:49:00 ity of [facility] Results Test Description Test Time Test Comments Results Result Comments Source POCT-GLUCOSE METER 2017-02-18 12:24:00 Test Item Value Reference Range Interpretation Comme nts POC-GLUCOSE METER (BEAKER) (test 217 mg/dL 70-[address] [facility] [address] code = 1538) [facility] 7703 0 [id number] 12:20:00 Test Item Value Reference Range Interpretation Comments RPR SCREEN (BEAKER) (test code = Nonreactive Nonreactive 420) POCT-GLUCOSE [id number] 08:12:00 Test Item Value Reference Range Interpretation Comments POC-GLUCOSE METER 149 mg/dL 70-110 H TESTED AT [facility] 6720 (BEAKER) (test code = BERTNE R [facility] 1538) 91457 BASIC METABOLIC [id number] 05:20:00 Test Item Value Reference Range Interpretation [...] PATIEN TS. CBC W/PLT COUNT & AUTO [id number] 05:07:00 Test Item Value Reference Range Interpretation [...] L 0.00-0.20 (test code = 417) 0.00POCT-GLUCOSE [id number] 21:04:00 Test Item Value Reference Range Interpretation Comments POC-GLUCOSE METER 298 mg/dL 70-110 H TESTED AT [place] [address] ([facility]) (test code = [facility] 1538) 03529 POCT-GLUCOSE [id number] 17:31:00 Test Item Value Reference Range Interpretation Comments POC-GLUCOSE METER 269 mg/dL 70-110 H TESTED AT [place] [address] ([facility]) (test code = [facility] 1538) 05914 POCT-GLUCOSE [id number] 12:28:00 Test Item Value Reference Range Interpretation Comments POC-GLUCOSE METER 242 mg/dL 70-110 H TESTED AT [place] [address] ([facility]) (test code = [facility] 1538) 90786 HEMOGLOBIN [id number] 11:38:00 Test Item Value Reference Range Interpretation Comments HEMOGLOBIN A1C ([facility]) (test code = 9.3 % 4.3-6.1 H 368) SEDIMENTATION [id number] 09:30:00 Test Item Value Reference Range Interpretation Comments SEDIMENTATION RATE, ERYTHROCYTE 5 mm/HR 0-20 ([facility]) (test code = 766) TSH/FREE T4 IF [id number] 09:07:00 Test Item Value Reference Range Interpretation Comments THYROID STIMULATING HORMONE 1.33 uIU/mL 0.35-4.94 ([facility]) (test code = 772) VITAMIN B12 AND [id number] 09:07:00 Test Item Value Reference Range Interpretation Comments VITAMIN B12 (BEAKER) (test code = 1548 pg/mL 213-816 H 774) FOLATE (BEAKER) (test code = 362) 18.7 ng/mL >=7.0 Effective 09/07/2014: Folate Reference Range ChangeNew: >=7.0 Previous: >=5.4POCT-GLUCOSE [id number] 08:36:00 Test Item Value Reference Range Interpretation Comments POC-GLUCOSE METER 221 mg/dL 70-[address] [facility] 6720 (BEAKER) (test code = DIONEPOLO VELASCO 1534) 80732 CBC W/PLT COUNT & AUTO [id number] 08:09:00 Test Item Value Reference Range Interpretation [...] L 0.00-0.20 (test code = 417) 0.00LIPID [id number] 08:04:00 Test Item Value Reference Range Interpretation Comments TRIGLYCERIDES (BEAKER) (test code = 322 mg/dL 540) CHOLESTEROL (BEAKER) (test code = 160 mg/dL 631) HDL CHOLESTEROL (BEAKER) (test code 30 mg/dL = 976) LDL CHOLESTEROL CALCULATED (BEAKER) 66 mg/dL (test code = 633) Triglyceride Reference Range: Low Risk <150 Borderline 150-199 High Risk 200- 499 Very High Risk >=500Cholesterol Reference Range: Low Risk <200 Borderline 200-239 High Risk >240HDL Cholesterol Reference Range: Low Risk >=60 High Risk <40LDL Cholesterol Reference Range: Optimal <100 Near Optimal 100-129 Borderline 130-159 High 160-189 Very High >=190BASIC METABOLIC [id number] 07:33:00 Test Item Value Reference Range Interpretation [...]
[2022-08-19] MEDS ORDERED: KETOROLAC 30 MG/ML INJ ONE (14:59)
[2022-08-19] MEDS ORDERED: HYDROCODONE/APAP 10/325 TAB ONE (14:59)
--- NOTE | 2022-08-19 15:00 | ER ---
Nurse's Notes [facility] Name: Diogenes Power Jr Age: 57 yrs Sex: Male : 1965 Arrival Date: 08/19/2022 Time: 13:49 Bed 12 Private MD: Jj Quigley H Diagnosis: Chronic pain syndrome Presentation: 08/19 13:58 Chief complaint: Patient states: Chronic all over body pain. Psych MD took him off his ll1 pain meds 6 weeks ago. Coronavirus screen: Vaccine status: Patient reports receiving the 2nd dose of the covid vaccine. Client denies travel out of the [place] in the last 14 days. At this time, the client does not indicate any symptoms associated with coronavirus-19. Ebola Screen: Patient denies travel to an Ebola-affected area in the 21 days before illness onset. Initial Sepsis Screen: Does the patient meet any 2 criteria? No. Patient's initial sepsis screen is negative. Does the patient have a suspected source of infection? No. Patient's initial sepsis screen is negative. Risk Assessment: Do you want to hurt yourself or someone else? Patient reports no desire to harm self or others. Onset of symptoms was July 05, 2022. 13:58 Method Of Arrival: Wheelchair ll1 13:58 Acuity: ESA 3 ll1 Triage Assessment: 14:01 General: Appears uncomfortable, Behavior is cooperative, appropriate for age. Pain: ll1 Complains of pain in all over. Historical: - Allergies: 14:00 Cardizem; ll1 - PMHx: 14:00 CVA; Hypertension; Diabetes - NIDDM; Bipolar disorder; Myocardial infarction; Seizures; ll1 heart attack; - PSHx: 14:00 heart cath; hernia repair x 2; ll1 - Immunization history:: Client reports receiving the 2nd dose of the Covid vaccine. - Social history:: Smoking status: Patient denies any tobacco usage or history of. Vital Signs: 13:58 BP 104 / 78; Pulse 88; Resp 16; Temp 97.2; Pulse Ox 97% on R/A; Weight 115.67 kg; ll1 Height 5 ft. 11 in. (180.34 cm); Pain 10/10; 13:58 Body Mass Index 35.56 (115.67 kg, 180.34 cm) ll1 ED Course: 13:49 Patient arrived in ED. am2 13:49 Jj Quigley DO is Private Physician. am2 13:50 Shaneka Diop FNP-C is [facility]. kb 13:50 Kb Dave MD is Attending Physician. kb 13:59 Triage completed. ll1 14:01 Arm band placed on. ll1 14:02 Patient placed in an exam room, on a stretcher. ll1 14:59 Jj Quigley DO is Referral Physician. kb 15:10 Ameena Rodrigez, RN is Primary Nurse. hb Administered Medications: 15:01 Drug: Ketorolac 30 mg Route: IM; Site: right deltoid; hb 15:02 Drug: [place] (HYDROcodone-acetaminophen) 10 mg-325 mg 1 tabs Route: PO; hb Outcome: 14:59 Discharge ordered by MD. kb 15:10 Discharged to home ambulatory, with significant other. hb 15:10 Condition: stable 15:10 Discharge instructions given to patient, Instructed on discharge instructions, follow up and referral plans. Demonstrated understanding of instructions, follow-up care. 15:10 Patient left the ED. hb Signatures: Shaneka Diop FNP-C MEDICAL RECEPTIONIST ASSISTANT-Ckb Ameena Rodrigez, RN RN Marquita Morrissey am Dago Amaya, RN RN 1
--- NOTE | 2022-08-19 15:00 | EDPHYS ---
Physician Documentation [facility] Name: Diogenes Power Jr Age: 57 yrs Sex: Male : 1965 Arrival Date: 08/19/2022 Time: 13:49 Bed 12 Private MD: Jj Quigley H ED Physician Kb Dave HPI: 08/19 14:57 This 57 yrs old Male presents to ER via Wheelchair with complaints of Pain All Over. kb 14:57 Pt reports chronic pain "from head to toe." States his psychiatrist took him off of kb gabapentin and flexeril due to starting latuda and the possible interactions. States he had been on those medications for 15 years. States pain has been getting worse. Onset: The symptoms/episode began/occurred chonic. Severity of symptoms: At their worst the symptoms were moderate in the emergency department the symptoms are unchanged. The patient has not experienced similar symptoms in the past. The patient has not recently seen a physician. Historical: - Allergies: 14:00 Cardizem; ll1 - PMHx: 14:00 CVA; Hypertension; Diabetes - NIDDM; Bipolar disorder; Myocardial infarction; Seizures; ll1 heart attack; - PSHx: 14:00 heart cath; hernia repair x 2; ll1 - Immunization history:: Client reports receiving the 2nd dose of the Covid vaccine. - Social history:: Smoking status: Patient denies any tobacco usage or history of. ROS: 14:58 Abdomen/GI: Negative for abdominal pain, nausea, vomiting, diarrhea, and constipation. kb 14:58 Constitutional: Positive for body aches. 14:58 All other systems are negative. Exam: 14:58 Constitutional: This is a well developed, well nourished patient who is awake, alert, kb and in no acute distress. Head/Face: Normocephalic, atraumatic. ENT: Moist Mucous membranes Cardiovascular: Regular rate and rhythm with a normal S1 and S2. No gallops, murmurs, or rubs. No pulse deficits. Respiratory: Respirations even and unlabored. No increased work of breathing. Talking in full sentences Abdomen/GI: Soft, non-tender. No distention Skin: Warm, dry with normal turgor. Normal color. MS/ Extremity: Pulses equal, no cyanosis. Neurovascular intact. Full, normal range of motion. Neuro: Awake and alert, GCS 15, oriented to person, place, time, and situation. Moves all extremities. Normal gait. Psych: Awake, alert, with orientation to person, place and time. Behavior, mood, and affect are within normal limits. Vital Signs: 13:58 BP 104 / 78; Pulse 88; Resp 16; Temp 97.2; Pulse Ox 97% on R/A; Weight 115.67 kg; ll1 Height 5 ft. 11 in. (180.34 cm); Pain 10/10; 13:58 Body Mass Index 35.56 (115.67 kg, 180.34 cm) ll1 MDM: 13:50 Patient medically screened. kb 14:56 Data reviewed: vital signs, nurses notes. Data interpreted: Pulse oximetry: on room air kb is 97 %. Interpretation: normal. Counseling: I had a detailed discussion with the patient and/or guardian regarding: the historical points, exam findings, and any diagnostic results supporting the discharge/admit diagnosis, the need for outpatient follow up, a family practitioner, to return to the emergency department if symptoms worsen or persist or if there are any questions or concerns that arise at home. ED course: Pt educated to call PCP tomorrow for pain management. Administered Medications: 15:01 Drug: Ketorolac 30 mg Route: IM; Site: right deltoid; hb 15:02 Drug: [place] (HYDROcodone-acetaminophen) 10 mg-325 mg 1 tabs Route: PO; hb Disposition: 16:54 Co-signature as Attending Physician, Kb Dave MD I agree with the assessment and kdr plan of care. Disposition Summary: 08/19/22 14:59 Discharge Ordered Location: Home kb Condition: Stable kb Diagnosis - Chronic pain syndrome kb Followup: kb - With: Emergency Department - When: As needed - Reason: Worsening of condition Followup: kb - With: Jj Quigley DO - When: 2 - 3 days - Reason: Recheck today's complaints, Continuance of care, Re-evaluation by your physician Discharge Instructions: - Discharge Summary Sheet kb - Chronic Pain, Adult kb Forms: - Medication Reconciliation Form kb - Thank You Letter kb - Antibiotic Education kb - Prescription Opioid Use kb Signatures: Shaneka Diop, GIL-Elsi CORDERO-Kb Galindo MD MD kdr Ameena Rodrigez, RN RN hb Dago Amaya RN RN ll1
[2022-08-19 15:14] VITALS: BP 104/78; TEMP 97.2; O2SAT 97
== END 2022-08-19 15:10 | disposition home or self-care (01) ==
LOC: ER 13:47
DX: G89.4 Chronic pain syndrome (principal); Z88.8 Allergy status to other drugs, medicaments and biological substances
CPT/HCPCS: 96372; 99283

== ENCOUNTER 2023-09-09 15:11 | Observation (INO) | payer BC ==
--- OUTSIDE RECORDS SUMMARY | 2023-09-09 15:20 | XMS REPORT | Continuity of Care Document ---
:1965 Author Organization [facility] t Address [address] [place] [address] [place] [id number] Care Team Providers Name Role Phone Sharpless Primary Care Physician FANY Attending Clinician Unavailable Juliano Vee Attending Clinician JULIANO MIRANDA Attending Clinician Unavailable Jj Quigley Attending Clinician LAURI CARDONA Attending Clinician Unavailable Doctor Unassigned, [place] Attending Clinician Unavailable Mitch Hill MD Attending [...] Treatment Clinician Date Morbid Morbid Disease Active 2018-10 Univers obesity obesity 2-27 [place]y of with body [place] mass [place] mass index 00 [place] dical of of Branch 40.0-49.9 40.0-49.9 AMS AMS Disease Active 2018-10 Univers (altered (altered 2 ity of mental mental 00:00: [place] status) status) 00 Medical Branch TIA TIA Disease Active [facility] (transient (transient 5-01 [place] ischemic ischemic 00:00: Medica l attack) attack) 00 [place] Speech Speech Disease Active [facility] abnormalit abnormalit 4-30 [place] y y 00:00: Medical [address] [place] [address] Bipolar Bipolar Disease Recurre [facility] disorder disorder [facility] Allergies, Adverse Reactions, Alerts Allergy Allergy Status Severity Reaction(s) Onset Inactive Treating Comm ents Source Name Type Date Date Clinician NO KNOWN Drug Active [facility] ALLERGIE [facility] Social History Social Habit Start Date Stop Date Quantity Comments Source History of tobacco Snuff User Univer sity of use [facility] Sexual orientation [facility] Cigarettes smoked 2019-11-23 2019-11-23 [facility] ity of current (pack per 00:00:00 00:00:00 [facility] ) - Reported Branch Cigarette 2019-11-23 2019-11-23 University of pack-years 00:00:00 00:00:00 [facility] Alcohol intake 2019-11-23 2019-11-23 University of 00:00:00 00:00:00 [facility] Alcohol Comment 2019-11-23 2019-11-23 Patient reports Univ ersity of 00:00:00 00:00:00 past alcohol [place] Medica l abuse Branch Sex Ass[birth year] [facility] 00:00:00 00:00:00 [facility] Smoking Status Start Date Stop Date Source Former smoker 2019-11-23 00:00:00 2019-11-23 00:00:00 Universi ty [facility] Medications Ordered Filled Start [...] 2-28 Intramuscu ity of 22:55: lar route. [place] [facility] lisinopril 2018-10 Yes 10mg Take 10 mg U nivers 10 mg 2-28 by mouth ity of tablet 22:55: daily. [place] [facility] Branch glipiZIDE 2018-10 Yes 10mg Take 10 mg Un piper 10 mg 2-28 by mouth ity of tablet 22:55: daily. [place] [address] Medical Branch metFORMIN 2018-10 Yes 1000mg Take 1,000 Univers 1,000 mg 2-28 mg by ity of tablet 22:55: mouth 2 [place] (two) Medical times Branch daily with meals. gabapentin 2018-10 Yes 600mg Take 600 Un piper 600 mg 2-28 mg by ity of tablet 22:55: mouth 3 [place] (three) Medical times Branch daily. CYANOCOBALA 2018-10 Yes Inject as U nivers MIN, 2-28 directed. ity of VITAMIN 22:55: [place] B-12, 03 Medical (VITAMIN Branch B-12 INJECTION) lamoTRIgine 2018-10 Yes 200mg Take 200 U nivers 200 mg 2-28 mg by ity of tablet 22:55: mouth [place] 03 daily. Medical Branch acetaminoph 2018-10 Yes 1{tbl} Take 1 Un piper en-codeine 2-28 tablet by ity of 300-30 mg 22:55: mouth [place] tablet 03 every 4 Medical (four) Branch hours as needed. TESTOSTERON 2018-10 Yes by Univer s E IM 2-28 Intramuscu ity of 22:55: lar route. [address] Branch lisinopril 2018-10 Yes 10mg Take 10 mg U nivers 10 mg 2-28 by mouth ity of tablet 22:55: daily. [address] Branch glipiZIDE 2018-10 Yes 10mg Take 10 mg Un piper 10 mg 2-28 by mouth ity of tablet 22:55: daily. [address] Branch metFORMIN 2018-10 Yes 1000mg Take 1,000 Univers 1,000 mg 2-28 mg by ity of tablet 22:55: mouth 2 [place] (two) Medical times Branch daily with meals. gabapentin 2018-10 Yes 600mg Take 600 Un piper 600 mg 2-28 mg by ity of tablet 22:55: mouth 3 [place] [address] (three) Medical times Branch daily. CYANOCOBALA 2018-10 Yes Inject as U nivers MIN, 2-28 directed. ity of VITAMIN 22:55: Medical (VITAMIN Branch B-12 INJECTION) lamoTRIgine 2018-10 [...] 2-28 Intramuscu ity of 22:55: lar route. [address] Branch lisinopril 2018-10 Yes 10mg Take 10 mg U nivers 10 mg 2-28 by mouth ity of tablet 22:55: daily. [place] [address] Medical Branch glipiZIDE 2018-10 Yes 10mg Take 10 mg Un piper 10 mg 2-28 by mouth ity of tablet 22:55: daily. [place] [address] Medical Branch metFORMIN 2018-10 Yes 1000mg Take 1,000 Univers 1,000 mg 2-28 mg by ity of tablet 22:55: mouth 2 (two) Medical times Branch daily with meals. gabapentin 2018-10 Yes 600mg Take 600 Un piper 600 mg 2-28 mg by ity of tablet 22:55: mouth 3 [place] (three) Medical times Branch daily. CYANOCOBALA 2018-10 Yes Inject as U nivers MIN, 2-28 directed. ity of VITAMIN 22:55: Medical (VITAMIN Branch B-12 INJECTION) lamoTRIgine 2018-10 [...] 2-28 Intramuscu ity of 22:55: lar route. [address] Branch lisinopril 2018-10 Yes 10mg Take 10 mg U nivers 10 mg 2-28 by mouth ity of tablet 22:55: daily. [place] [address] Medical Branch glipiZIDE 2018-10 Yes 10mg Take 10 mg Un piper 10 mg 2-28 by mouth ity of tablet 22:55: daily. [address] Branch metFORMIN 2018-10 Yes 1000mg Take 1,000 Univers 1,000 mg 2-28 mg by ity of tablet 22:55: mouth 2 [place] (two) Medical times Branch daily with meals. gabapentin 2018-10 Yes 600mg Take 600 Un piper 600 mg 2-28 mg by ity of tablet 22:55: mouth 3 [place] (three) Medical times Branch daily. CYANOCOBALA 2018-10 Yes Inject as U nivers MIN, 2-28 directed. ity of VITAMIN 22:55: [place] B-12, Medical (VITAMIN Branch B-12 INJECTION) lamoTRIgine 2018-10 Yes 200mg Take 200 U nivers 200 mg 2-28 mg by ity of tablet 22:55: mouth [place] 03 daily. Medical Branch acetaminoph 2018-10 Yes 1{tbl} Take 1 Un piper en-codeine 2-28 tablet by ity of 300-30 mg 22:55: mouth [place] tablet 03 every 4 Medical (four) Branch hours as needed. TESTOSTERON 2018-10 Yes by Univer s E IM 2-28 Intramuscu ity of 22:55: lar route. [address] Branch lisinopril 2018-10 Yes 10mg Take 10 mg U nivers 10 mg 2-28 by mouth ity of tablet 22:55: daily. [address] Branch glipiZIDE 2018-10 Yes 10mg Take 10 mg Un piper 10 mg 2-28 by mouth ity of tablet 22:55: daily. [address] Branch metFORMIN 2018-10 Yes 1000mg Take 1,000 Univers 1,000 mg 2-28 mg by ity of tablet 22:55: mouth 2 [place] [address] (two) Medical times Branch daily with meals. gabapentin 2018-10 Yes 600mg Take 600 Un piper 600 mg 2-28 mg by ity of tablet 22:55: mouth 3 [place] (three) Medical times Branch daily. CYANOCOBALA 2018-10 Yes Inject as U nivers MIN, 2-28 directed. ity of VITAMIN 22:55: [place] B-12, Medical (VITAMIN Branch B-12 INJECTION) lamoTRIgine [...] 2-28 Intramuscu ity of 22:55: lar route. [place] [address] Medical Branch lisinopril 2018-10 Yes 10mg Take 10 mg U nivers 10 mg 2-28 by mouth ity of tablet 22:55: daily. [place] [address] Medical Branch glipiZIDE 2018-10 Yes 10mg Take 10 mg Un piper 10 mg 2-28 by mouth ity of tablet 22:55: daily. [place] [address] Medical Branch metFORMIN 2018-10 Yes 1000mg Take 1,000 Univers 1,000 mg 2-28 mg by ity of tablet 22:55: mouth 2 [place] [address] (two) Medical times Branch daily with meals. gabapentin 2018-10 Yes 600mg Take 600 Un piper 600 mg 2-28 mg by ity of tablet 22:55: mouth 3 [place] [address] (three) Medical times Branch daily. CYANOCOBALA 2018-10 Yes Inject as U nivers MIN, 2-28 directed. ity of VITAMIN 22:55: [place] B- Medical (VITAMIN Branch B-12 INJECTION) lamoTRIgine 2018-10 [...] 2-28 Intramuscu ity of 22:55: lar route. [address] Branch lisinopril 2018-10 Yes 10mg Take 10 mg U nivers 10 mg 2-28 by mouth ity of tablet 22:55: daily. [address] Branch glipiZIDE 2018-10 Yes 10mg Take 10 mg Un piper 10 mg 2-28 by mouth ity of tablet 22:55: daily. [place] 03 Medical Branch metFORMIN 2018-10 Yes 1000mg Take 1,000 Univers 1,000 mg 2-28 mg by ity of tablet 22:55: mouth 2 [place] 03 (two) Medical times Branch daily with meals. gabapentin 2018-10 Yes 600mg Take 600 Un piper 600 mg 2-28 mg by ity of tablet 22:55: mouth 3 [place] (three) Medical times Branch daily. CYANOCOBALA 2018-10 Yes Inject as U nivers MIN, 2-28 directed. ity of VITAMIN 22:55: [place] B-12, 03 Medical (VITAMIN Branch B-12 INJECTION) lamoTRIgine 2018-10 Yes 200mg Take 200 U nivers 200 mg 2-28 mg by ity of tablet 22:55: mouth [place] 03 daily. Medical Branch lamoTRIgine Yes 100mg QD Take [address] (LAMICTAL) 5-01 mg by [facility] 100 MG 17:14: mouth Medical tablet 26 daily. Center cyclobenzap 2017 Yes 10mg Q.5D Take [address] [facility] rine 5-01 by mouth 2 [facility] (FLEXERIL) 17:14: (two) Medica l 10 MG 26 times Center tablet daily . glipiZIDE 2017 Yes 10mg Take [address] (GLUCOTROL) 5-01 by mouth 2 [place] 10 MG 17:14: (two) Medical tablet 26 times Center daily before meals. lisinopril 2017 Yes 10mg QD Take [address] (PRINIVIL,Z 5-01 by mouth Luke s ESTRIL) 10 17:14: daily. Medic al MG tablet 26 Center gabapentin 2017 Yes 600mg Q.5D Take [address] (NEURONTIN) 5-01 mg by [facility] 600 MG 17:14: mouth 2 Medical tablet 26 (two) Center times daily. metFORMIN 2017-0 Yes 1000mg Take 1,[address] [facility] (GLUCOPHAGE 5-01 mg by [facility] ) 1000 MG 17:14: mouth 2 Medic al tablet 26 (two) Center times daily with breakfast and dinner. multivitami 2017-0 Yes 1{capsu QD Take [address] n capsule 5-01 le} capsule by Luke s 17:14: mouth Medical 26 daily. Center omega-3 2017- Yes Take by [facility] fatty 5-01 mouth. [facility] acids-vitam 17:14: Medica l in E 1,000 26 Center mg Cap b complex 2017-0 Yes 1{tbl} Q.5D Take [address] [facility] vitamins 5-01 tablet by [facility] tablet 17:14: mouth 2 Medical 26 (two) Center times daily. DULoxetine 2017-0 Yes 60mg QD Take [address] (CYMBALTA) 5-01 by mouth [facility] 60 MG 17:14: daily. Medical capsule 26 [place] lisinopril 20170 Yes 10mg QD Take [address] (PRINIVIL,Z 5-01 by mouth Luke s ESTRIL) 10 17:14: daily. Medic al MG tablet 26 Center gabapentin 20170 Yes 600mg Q.5D Take [address] (NEURONTIN) 5-01 mg by [facility] 600 MG 17:14: mouth 2 Medical tablet 26 (two) Center times daily. metFORMIN 2017 Yes 1000mg Take 1,[address] [facility] [address] (GLUCOPHAGE 5-01 mg by [facility] ) 1000 MG 17:14: mouth 2 Medic al tablet 26 (two) Center times daily with breakfast and dinner. multivitami 2017- Yes 1{capsu QD Take [address] n capsule 5-01 le} capsule by Luke s 17:14: mouth Medical 26 daily. [place] omega-3 Yes Take by [facility] fatty 5-01 mouth. [facility] acids-vitam 17:14: Medica l in E 1,000 26 Center mg Cap b complex 2017-0 Yes 1{tbl} Q.5D Take [address] vitamins 5-01 tablet by [facility]ukes tablet 17:14: mouth 2 Medical 26 (two) Center times daily. DULoxetine 2017-0 Yes 60mg QD Take [address] (CYMBALTA) 5-01 by mouth [facility] 60 MG 17:14: daily. Medical capsule 26 [place] lamoTRIgine 2017-0 Yes 100mg QD Take [address] (LAMICTAL) 5-01 mg by [facility] 100 MG 17:14: mouth Medical tablet 26 daily. [place] cyclobenzap 2017-0 Yes 10mg Q.5D Take 10 [...] Medic al MG tablet 26 Center gabapentin 2017-0 Yes 600mg Q.5D Take [address] (NEURONTIN) 5-01 mg by [facility] 600 MG 17:14: mouth 2 Medical tablet 26 (two) Center times daily. metFORMIN 2017-0 Yes 1000mg Take 1,[address] [facility] [address] (GLUCOPHAGE 5-01 mg by [facility] ) 1000 MG 17:14: mouth 2 Medic al tablet 26 (two) Center times daily with breakfast and dinner. multivitami 2017-0 Yes 1{capsu QD Take [address] n capsule 5-01 le} capsule by Luke s 17:14: mouth Medical 26 daily. Center omega-3 2017-0 Yes Take by [facility] fatty 5-01 mouth. [facility] acids-vitam 17:14: Medica l in E 1,000 26 Center mg Cap b complex 2017-0 Yes 1{tbl} Q.5D Take [address] [facility] [facility] [...] 17:14: mouth Medical tablet 26 daily. Center cyclobenzap 2017-0 Yes 10mg Q.5D Take [address] [facility] rine 5-01 by mouth 2 [facility] (FLEXERIL) 17:14: (two) Medica l 10 MG 26 times Center tablet daily . glipiZIDE 2017-0 Yes 10mg Take [address] (GLUCOTROL) 5-01 by mouth 2 [place] 10 MG 17:14: (two) Medical tablet 26 times Center daily before meals. acetaminoph 2017-0 Yes 1{tbl} Take 1 Un [...] Systolic blood 2019-11-23 20:47:00 155 mm[Hg] Univer sity [facility] Diastolic blood 2019-11-23 20:47:00 77 mm[Hg] Unive rsity [facility] Heart rate 2019-11-23 20:47:00 102 /min [facility] Body temperature 2019-11-23 20:47:00 37 Doris [facility] Respiratory rate 2019-11-23 20:47:00 18 /min [facility] Body height 2019-11-23 20:47:00 182.9 cm [facility] Body weight 2019-11-23 20:47:00 136.079 kg [facility] BMI 2019-11-23 20:47:00 40.69 kg/m2 [facility] Procedures Procedure Date / Time Performing Clinician Source Performed AUTHORIZATION FOR 2019-12-01 06:01:00 Doctor Unassigned, No Univ [facility] RELEASE OF PHI Name [facility] Encounters Start End Encounter Admission Attending Care Care Encounter Source Date/Time Date/Time Type Type Clinicians Facility Department ID 2022-08-21 2022-08-21 Outpatient SFA KEVIN [id number] [place] 13:55:27 13:55:27 [id number] F Yovani 2021-11-15 2021-11-15 Outpatient DESAI_RAKES [facility] [id number] [place] 08:00:00 08:00:00 [id number] 2020-11-02 2020-11-02 Outpatient DESAI_RAKES [facility] [id number] [place] 07:48:00 07:48:00 H [id number] [facility] 2020-05-21 2020-05-21 Outpatient DESAI_RAKES [facility] [id number] [place] 01:17:00 01:17:00 H [id number] [facility] 2020-01-18 2020-01-18 Outpatient DESAI_RAKES [facility] [id number] [place] 12:24:00 12:24:00 H [id number] [facility] 2020-01-18 2020-01-18 [facility] [id number] 00:00:00 00:00:00 [facility] [id number] [place] [id number] [facility] [id number] Primary & 370 Specialty Care 2020-01-18 2020-01-18 [facility]phone [facility] [id number] Univers 00:00:00 00:00:00 [facility] [id number] it y of [place] 4.2.7.2.686 [facility] [id number] [facility] Primary & 370 Branch Specialty Care 2020-01-18 2020-01-18 Telephone [facility] [id number] Univers 00:00:00 00:00:00 [facility] [id number] it y of [place] 4.2.7.2.686 [facility] [id number] [facility] Primary & 370 Branch Specialty Care 2020-01-15 2020-01-15 Outpatient R BRUNILDA [facility] [id number] Univers 13:00:00 13:00:00 [facility] ity [facility] 2020-01-15 2020-01-15 Telephone [facility] [id number] Univers 00:00:00 00:00:00 [facility] [id number] ity [facility] [id number] Amari [facility] [id number] [address] Office [address] 2020-01-14 2020-01-14 Outpatient R DULCE [facility] [id number] Univers 18:45:00 18:45:00 LAURI santiago [facility] 2019-12-01 2019-12-01 Orders Doctor OKEEFE [id number] Univers 00:00:00 00:00:00 Only Unassigned, DERIC [id number] ity of [place] [facility] 4.2.7.2.686 Amari as [id number] [facility] 009 Branch 2019-11-23 2019-11-23 Office Sergio [facility] [id number] Univers 13:07:52 14:33:05 Visit Mitch Vital [id number] ity of [place] 4.2.7.2.686 [place] [id number] Mo dical nal 092 [facility] 2019-10-16 2019-10-17 Outpatient X ARIE RUBIN [facility] AMIE [id number] Univers 13:44:57 15:49:00 ity of [facility] Results Test Description Test Time Test Comments Results Result Comments Source POCT-GLUCOSE METER 2017-02-18 12:24:00 Test Item Value Reference Range Interpretation Comme nts POC-GLUCOSE METER (BEAKER) (test 217 mg/dL 70-110 H TESTED AT [facility] [address] code = 1538) [facility] 7703 0 [id number] 12:20:00 Test Item Value Reference Range Interpretation Comments RPR SCREEN (BEAKER) (test code = Nonreactive Nonreactive 420) POCT-GLUCOSE [id number] 08:12:00 Test Item Value Reference Range Interpretation Comments POC-GLUCOSE METER 149 mg/dL 70-110 H TESTED AT [facility] 6720 (BEAKER) (test code = BERTNE R [facility] 1538) [address] BASIC METABOLIC [id number] 05:20:00 Test Item Value Reference Range Interpretation [...] PATIEN TS. CBC W/PLT COUNT & AUTO [id number] 05:07:00 Test Item Value Reference Range Interpretation [...] L 0.00-0.20 (test code = 417) 0.00POCT-GLUCOSE [id number] 21:04:00 Test Item Value Reference Range Interpretation Comments POC-GLUCOSE METER 298 mg/dL 70-110 H TESTED AT [place] [address] ([facility]) (test code = [facility] 1538) [address] POCT-GLUCOSE [id number] 17:31:00 Test Item Value Reference Range Interpretation Comments POC-GLUCOSE METER 269 mg/dL 70-110 H TESTED AT [place] [address] ([facility]) (test code = [facility] 1538) [address] POCT-GLUCOSE [id number] 12:28:00 Test Item Value Reference Range Interpretation Comments POC-GLUCOSE METER 242 mg/dL 70-110 H TESTED AT [place] [address] ([facility]) (test code = [facility] 1538) [address] HEMOGLOBIN [id number] 11:38:00 Test Item Value Reference Range Interpretation Comments HEMOGLOBIN A1C (BEAKER) (test code = 9.3 % 4.3-6.1 H 368) SEDIMENTATION [id number] 09:30:00 Test Item Value Reference Range Interpretation Comments SEDIMENTATION RATE, ERYTHROCYTE 5 mm/HR 0-20 ([facility]) (test code = 766) TSH/FREE T4 IF [id number] 09:07:00 Test Item Value Reference Range Interpretation Comments THYROID STIMULATING HORMONE 1.33 uIU/mL 0.35-4.94 (AKER) (test code = 772) VITAMIN B12 AND [id number] 09:07:00 Test Item Value Reference Range Interpretation Comments VITAMIN B12 (BEAKER) (test code = 1548 pg/mL 213-816 H 774) FOLATE (BEAKER) (test code = 362) 18.7 ng/mL >=7.0 Effective 09/07/2014: Folate Reference Range ChangeNew: >=7.0 Previous: >=5.4POCT-GLUCOSE [id number] 08:36:00 Test Item Value Reference Range Interpretation Comments POC-GLUCOSE METER 221 mg/dL 70-110 H TESTED AT [facility] 6720 (BEAKER) (test code = [place] 1538) [address] CBC W/PLT COUNT & AUTO [id number] 08:09:00 Test Item Value Reference Range Interpretation [...] L 0.00-0.20 (test code = 417) 0.00LIPID [id number] 08:04:00 Test Item Value Reference Range Interpretation [...] 130-159 High 160-189 Very High >=190BASIC METABOLIC [id number] 07:33:00 Test Item Value Reference Range Interpretation [...]
[2023-09-09 15:51] LABS: Hematocrit 50.1 % (39.6-49.0); Lymphocytes % 14.1 % (15.3-44.8); MCV 90.6 fL (80-100); MPV 7.2 fL (7.6-11.3); Platelets 313 thou/uL (152-406); RBC Red Blood Cell Count 5.53 M/uL (4.33-5.43)
[2023-09-09] MEDS ORDERED: ACETAMINOPHEN 500 MG TAB ONE (15:57)
[2023-09-09] MEDS ORDERED: METOCLOPRAMIDE 10 MG/2mL INJ ONE (15:57)
[2023-09-09] MEDS ORDERED: DIPHENHYDRAMINE 50 MG/ML VIAL ONE (15:57)
[2023-09-09] MEDS ORDERED: Magnesium Sulfate 2gm IVPB 2 G/50 ML BAG IV ONE (15:58)
--- NOTE | 2023-09-09 16:02 | RAD REPORT ---
EXAM DESCRIPTION: RAD - Chest Single View - 09/09/2023 3:51 pm CLINICAL HISTORY: syncope Chest pain. COMPARISON: Chest Single View dated 01/27/2021; Chest Single View dated 03/27/2017; Chest Single View da jose 02/16/2017; CHEST SINGLE VIEW dated 07/11/2014 FINDINGS: Portable technique limits examination quality. Mild bilateral pulmonary opacities are present likely representing pulmonary edema or infection. The heart is mildly enlarged in size. No displaced fractures.
--- NOTE | 2023-09-09 16:06 | RAD REPORT ---
EXAM DESCRIPTION: CT - Head Brain Wo Cont - 09/09/2023 3:58 pm CLINICAL HISTORY: HEADACHE COMPARISON: Head Brain Wo Cont dated 01/27/2021; Head Brain Wo Cont dated 02/16/2017 TECHNIQUE: All CT scans are performed using dose optimization technique as appropriate and may inclu de automated exposure control or mA/KV adjustment according to patient size. FINDINGS: No intracranial hemorrhage, hydrocephalus or extra-axial fluid collection.No areas of brai n edema or evidence of midline shift. Moderate multifocal paranasal sinus polypoid mucosal thickening. The calvarium is intact. IMPRESSION: No acute intracranial abnormality. Moderate multifocal paranasal sinus polypoid mucosal thickening.
[2023-09-09 16:12] LABS: Albumin 3.7 g/dL (3.4-5.0); Bilirubin Direct 0.3 mg/dL (0-0.2); Bilirubin Indirect, Calculated 0.6 mg/dL (0.2-0.8); Bilirubin Total 0.9 mg/dL (0.2-1.0); Magnesium 2.2 mg/dL (1.6-2.4); Potassium 4.3 mEq/L (3.5-5.1); Protein, Total 8.4 g/dL (6.4-8.2); Troponin High Sensitivity 6.9 pg/mL (<58.9)
[2023-09-09 17:09] LABS: Protime INR 1.1
--- NOTE | 2023-09-09 17:20 | EDPHYS ---
Physician Documentation [facility] Name: Diogenes Power Jr Age: 58 yrs Sex: Male : 1965 Arrival Date: 09/09/2023 Time: 15:11 Bed 17 Private MD: ED Physician Kristian Valderrama HPI: 09/09 20:15 This 58 yrs old Male presents to ER via Wheelchair with complaints of Headache. rt 20:15 Patient presents to the ED with headache, nausea vomiting. The headache is generalized rt in nature. Is associated with the vomiting. He does have a history of migraines, states that this is different. Patient did have multiple episodes of either passing out or having seizure today, otherwise denies any convulsive activity. Denies other acute complaints, symptoms are moderate severity, no other aggravating elevating factors.. Historical: - Allergies: 15:24 Cardizem; iw - PMHx: 15:24 Myocardial infarction; Hypertension; heart attack; Diabetes - NIDDM; Seizures; CVA; iw Bipolar disorder; - PSHx: 15:24 heart cath; hernia repair x 2; iw - Immunization history:: Adult Immunizations up to date. - Family history:: not pertinent. - Social history:: Smoking status: Patient denies any tobacco usage or history of. ROS: 20:15 Constitutional: Negative for fever, chills, and weight loss, Cardiovascular: Negative rt for chest pain, palpitations, and edema, Respiratory: Negative for shortness of breath, cough, wheezing, and pleuritic chest pain, MS/Extremity: Negative for injury and deformity, Skin: Negative for injury, rash, and discoloration, Psych: Negative for depression, anxiety, suicide ideation, homicidal ideation, and hallucinations, 20:15 Abdomen/GI: Positive for nausea, vomiting, 20:15 Neuro: Positive for headache, loss of consciousness, Exam: 20:15 Constitutional: This is a well developed, well nourished patient who is awake, alert, rt and in no acute distress. Head/Face: Normocephalic, atraumatic. Chest/axilla: Normal chest wall appearance and motion. Nontender with no deformity. No lesions are appreciated. Cardiovascular: Regular rate and rhythm with a normal S1 and S2. No gallops, murmurs, or rubs. Normal PMI, no JVD. No pulse deficits. Respiratory: Lungs have equal breath sounds bilaterally, clear to auscultation and percussion. No rales, rhonchi or wheezes noted. No increased work of breathing, no retractions or nasal flaring. Abdomen/GI: Soft, non-tender, with normal bowel sounds. No distension or tympany. No guarding or rebound. No evidence of tenderness throughout. Skin: Warm, dry with normal turgor. Normal color with no rashes, no lesions, and no evidence of cellulitis. MS/ Extremity: Pulses equal, no cyanosis. Neurovascular intact. Full, normal range of motion. Neuro: Awake and alert, GCS 15, oriented to person, place, time, and situation. Cranial nerves II-XII grossly intact. Motor strength 5/5 in all extremities. Sensory grossly intact. Cerebellar exam normal. Normal gait. Psych: Awake, alert, with orientation to person, place and time. Behavior, mood, and affect are within normal limits. 20:15 ECG was reviewed by the Attending Physician. Vital Signs: 15:24 BP 147 / 92; Pulse 97; Resp 14; Pulse Ox 95% ; Weight 136.08 kg; Height 6 ft. 0 in. ; iw 16:45 BP 147 / 65; Pulse 96; Resp 16; Pulse Ox 96% on R/A; Pain 8/10; tl4 19:16 BP 135 / 61; Pulse 95; Resp 18; Pulse Ox 96% ; tl4 20:19 BP 153 / 73; Pulse 91; Resp 18; Pulse Ox 99% ; Pain 0/10; jj7 15:24 Body Mass Index 40.69 (136.08 kg, 182.88 cm) iw 16:45 Pain Scale: Adult tl4 20:19 Pain Scale: Adult jj7 MDM: 15:27 Patient medically screened. rt 20:15 Differential diagnosis: Intracranial hemorrhage, seizure, syncope. Data reviewed: vital rt signs, nurses notes, lab test result(s), EKG, radiologic studies. Consideration of Admission/Observation Patient was admitted/placed on observation. Management of patient was discussed with the following: Hospitalist: Agrees to admit. I considered the following discharge prescriptions or medication management in the emergency department Medications were administered in the Emergency Department. See MAR. Independent interpretation of the following test(s) in the Emergency Department CT Scan: My interpretation is No hemorrhage seen on interpretation of CT scan images. Care significantly affected by the following chronic conditions: Seizure disorder, coronary artery disease. Counseling: I had a detailed discussion with the patient and/or guardian regarding the historical points, exam findings, and any diagnostic results supporting the discharge/admit diagnosis, lab results, radiology results, the need for further work-up and treatment in the hospital. Response to treatment: the patient's symptoms have markedly improved after treatment. 09/09 15:35 Order name: Basic Metabolic Panel; Complete Time: 16:14 rt 09/09 15:35 Order name: CBC with Diff; Complete Time: 16:14 rt 09/09 15:35 Order name: LFT's; Complete Time: 16:14 rt 09/09 15:35 Order name: Magnesium; Complete Time: 16:14 rt 09/09 15:35 Order name: NT PRO-BNP; Complete Time: 16:14 rt 09/09 15:35 Order name: PT-INR; Complete Time: 17:12 rt 09/09 15:35 Order name: Troponin HS; Complete Time: 16:14 rt 09/09 19:03 Order name: T4 Free EDMS 09/09 19:03 Order name: Thyroid Stimulating Hormone EDMS 09/09 19:03 Order name: Urinalysis w/ reflexes EDMS 09/09 19:03 Order name: Basic Metabolic Panel EDMS 09/09 19:03 Order name: Basic Metabolic Panel EDMS 09/09 19:03 Order name: Basic Metabolic Panel EDMS 09/09 19:03 Order name: Basic Metabolic Panel EDMS 09/09 19:03 Order name: CBC with Automated Diff EDMS 09/09 19:03 Order name: CBC with Automated Diff EDMS 09/09 19:03 Order name: CBC with Automated Diff EDMS 09/09 19:03 Order name: CBC with Automated Diff EDMS 09/09 19:03 Order name: Lipid Profile EDMS 09/09 19:03 Order name: Lipid Profile EDMS 09/09 19:03 Order name: Magnesium EDMS 09/09 19:03 Order name: Magnesium EDMS 09/09 19:03 Order name: Magnesium EDMS 09/09 19:03 Order name: Magnesium EDMS 09/09 19:03 Order name: Phosphorus EDMS 09/09 19:03 Order name: Phosphorus EDMS 09/09 19:03 Order name: Phosphorus EDMS 09/09 19:03 Order name: Phosphorus [facility] 09/09 15:35 Order name: XRAY Chest (1 view); Complete Time: 16:14 rt 09/09 15:35 Order name: CT Head Brain wo Cont; Complete Time: 16:14 rt 09/09 15:35 Order name: EKG; Complete Time: 15:36 rt 09/09 19:03 Order name: CONS Physician Consult [facility] 09/09 15:35 Order name: Cardiac monitoring; Complete Time: 15:53 rt 09/09 15:35 Order name: EKG - Nurse/Tech; Complete Time: 16:14 rt 09/09 15:35 Order name: IV Saline Lock; Complete Time: 15:49 rt 09/09 15:35 Order name: Labs collected and sent; Complete Time: 15:49 rt 09/09 15:35 Order name: O2 Per Protocol; Complete Time: 15:49 rt 09/09 15:35 Order name: O2 Sat Monitoring; Complete Time: 15:49 rt EC:15 Rate is 91 beats/min. Rhythm is regular, Normal Sinus Rhythm with No ectopy. QRS Ethel rt is Normal. [place] interval is normal. QRS interval is normal. QT interval is normal. No Q waves. Clinical impression: NSR w/ Non-specific ST/T Changes. Administered Medications: 15:55 Drug: metoCLOPramide IVP 10 mg IVP once; over 1 to 2 minutes Route: IVP; Infused Over: tl4 2 mins; Site: right antecubital; 16:44 Follow up: Response: Nausea is decreased tl4 16:00 Drug: diphenhydrAMINE IVP 25 mg IVP once Route: IVP; Infused Over: 2 mins; Site: right tl4 antecubital; 16:45 Follow up: Response: No adverse reaction tl4 16:36 Drug: Magnesium Sulfate IVPB 2 grams IVPB once over 2 hrs Route: IVPB; Infused Over: 2 tl4 hrs; Site: right antecubital; 18:30 Follow up: Response: No adverse reaction; IV Status: Completed infusion tl4 16:36 Drug: Acetaminophen PO 1000 mg PO once Route: PO; tl4 18:07 Follow up: Response: Pain is decreased tl4 18:00 Drug: Ampicillin-Sulbactam Sodium IVPB 3 grams IVPB once over 30 mins; (mix in 100 mL tl4 NS) Route: IVPB; Infused Over: 30 mins; Site: right antecubital; Delivery: Primary tubing; 18:43 Follow up: Response: No adverse reaction; IV Status: Completed infusion tl4 Disposition Summary: 09/09/23 17:19 Hospitalization Ordered Notes: Hospitalization Status: Observation rt Provider: Arcadio Colin rt Location: Telemetry/MedSurg (observation) rt Condition: Stable rt Problem: new rt Symptoms: have improved rt Bed/Room Type: Standard rt Room Assignment: 232(09/09/23 19:01) iw Diagnosis - Seizure versus syncope rt - Aspiration pneumonia rt Forms: - Medication Reconciliation Form rt - SBAR form rt - Leadership Thank You Letter rt Signatures: Dispatcher [employer] Crys Quiroz RN RN Froilan Encinas RN RN jj7 Kristian Valderrama MD MD rt JocedaZack richmond tl4 Corrections: (The following items were deleted from the chart) 19:01 17:19 rt iw
--- NOTE | 2023-09-09 17:20 | ER ---
Nurse's Notes [facility] Name: Diogenes Power Jr Age: 58 yrs Sex: Male : 1965 Arrival Date: 09/09/2023 Time: 15:11 Bed 17 Private MD: Diagnosis: Seizure versus syncope;Aspiration pneumonia Presentation: 09/09 15:22 Chief complaint: Spouse and/or significant other states: hx of seizures, last week he iw started having episodes of passing out, two days ago he started having a headache . he has not had a seizure in two days. Coronavirus screen: At this time, the client does not indicate any symptoms associated with coronavirus-19. Ebola Screen: Patient negative for fever greater than or equal to 101.5 degrees Fahrenheit, and additional compatible Ebola Virus Disease symptoms Patient denies exposure to infectious person. Patient denies travel to an Ebola-affected area in the 21 days before illness onset. No symptoms or risks identified at this time. Risk Assessment: Do you want to hurt yourself or someone else? Patient reports no desire to harm self or others. Onset of symptoms was September 02, 2023. 15:22 Acuity: ESA 2 iw 18:33 Initial Sepsis Screen: Does the patient meet any 2 criteria?. Initial Sepsis Screen: tl4 Does the patient meet any 2 criteria? No. Patient's initial sepsis screen is negative. Does the patient have a suspected source of infection? No. Patient's initial sepsis screen is negative. 18:33 Method Of Arrival: Wheelchair tl4 Triage Assessment: 18:30 Headache History: The patient has had previous headaches and this one is more severe tl4 than previous episodes. General: Appears distressed, uncomfortable, Behavior is cooperative, restless. Pain: Also complains of nausea, diaphoresis, photophobia, inability to work. Pain: Complains of pain in head, behind left eye. Historical: - Allergies: 15:24 Cardizem; iw - PMHx: 15:24 Myocardial infarction; Hypertension; heart attack; Diabetes - NIDDM; Seizures; CVA; iw Bipolar disorder; - PSHx: 15:24 heart cath; hernia repair x 2; iw - Immunization history:: Adult Immunizations up to date. - Family history:: not pertinent. - Social history:: Smoking status: Patient denies any tobacco usage or history of. Screenin:20 [facility] ED Fall Risk Assessment (Adult) History of falling in the last 3 months, tl4 including since admission Yes- fall prone (multiple falls) (3 pts) Confusion or Disorientation Intoxicated or Sedated No (0 pts) Impaired Gait No (0 pts) Mobility Assist Device Used No (0 pt) Altered Elimination No (0 pt) Score/Fall Risk Level 3 or more points = High Risk Oriented to surroundings, Maintained a safe environment, Educated pt \T\ family on fall prevention, incl call for assistance when getting out of bed, Assessed \T\ reinforced patient's understanding of fall precautions, Provided non-skid footwear, Hourly rounding (assess needs \T\ fall precautionary measures) done, Used ambulatory aids as needed (educated on \T\ assisted with), Used gait belt as appropriate Utilized family, sitter, or virtual truck service technician as indicated. Abuse screen: Denies threats or abuse. Denies injuries from another. Nutritional screening: No deficits noted. Tuberculosis screening: No symptoms or risk factors identified. Assessment: 16:55 General: Appears distressed, Behavior is cooperative, restless, Smells of Reports tl4 Denies fever, chills. Pain: Complains of pain in head Pain currently is 10 out of 10 on a pain scale. Quality of pain is described as stabbing, throbbing, Pain began 2-3 days ago. Neuro: Reports headache frontal area, pt states pain is almost the worst he's ever had. Cardiovascular: Reports lightheadedness, nausea, syncope, vomiting, Denies chest pain, skin is cold, profusely diaphoretic.. Chest pain is denied. Respiratory: No deficits noted. GI: Reports nausea, vomiting, Patient currently denies tolerance of fluids, tolerance of food. : No deficits noted. No signs and/or symptoms were reported regarding the genitourinary system. EENT: Reports nasal congestion. 19:10 Reassessment: Patient is alert, oriented x 3, equal unlabored respirations, skin jj7 warm/dry/pink. ASSUMED CARE OF PT. PT LYING IN BED. NO PAIN OR DISTRESS. VS STABLE. ORDERED MEDS GIVENS. PT TOLERATING WELL. Vital Signs: 15:24 BP 147 / 92; Pulse 97; Resp 14; Pulse Ox 95% ; Weight 136.08 kg; Height 6 ft. 0 in. ; iw 16:45 BP 147 / 65; Pulse 96; Resp 16; Pulse Ox 96% on R/A; Pain 8/10; tl4 19:16 BP 135 / 61; Pulse 95; Resp 18; Pulse Ox 96% ; tl4 20:19 BP 153 / 73; Pulse 91; Resp 18; Pulse Ox 99% ; Pain 0/10; jj7 15:24 Body Mass Index 40.69 (136.08 kg, 182.88 cm) iw 16:45 Pain Scale: Adult tl4 20:19 Pain Scale: Adult j7 ED Course: 15:15 Patient arrived in ED. im 15:24 Triage completed. iw 15:25 Kristian Valderrama MD is Attending Physician. rt 15:39 Dago Amaya, KENNETH is Primary Nurse. ll1 15:53 XRAY Chest (1 view) In Process Unspecified. EDMS 16:00 CT Head Brain wo Cont In Process Unspecified. EDMS 16:54 Inserted saline lock: 18 gauge in right antecubital area, using aseptic technique. tl4 Blood collected. 17:19 Arcadio Colin MD is Hospitalizing Provider. rt 18:24 Patient has correct armband on for positive identification. Placed in gown. Bed in low tl4 position. Call light in reach. Side rails up X2. Adult w/ patient. Provided Education on: IV, labs, CT scan. 18:26 No provider procedures requiring assistance completed. tl4 18:33 Arm band placed on Patient notified of wait time. tl4 20:20 Patient admitted, IV remains in place. jj7 Administered Medications: 15:55 Drug: metoCLOPramide IVP 10 mg IVP once; over 1 to 2 minutes Route: IVP; Infused Over: tl4 2 mins; Site: right antecubital; 16:44 Follow up: Response: Nausea is decreased tl4 16:00 Drug: diphenhydrAMINE IVP 25 mg IVP once Route: IVP; Infused Over: 2 mins; Site: right tl4 antecubital; 16:45 Follow up: Response: No adverse reaction tl4 16:36 Drug: Magnesium Sulfate IVPB 2 grams IVPB once over 2 hrs Route: IVPB; Infused Over: 2 tl4 hrs; Site: right antecubital; 18:30 Follow up: Response: No adverse reaction; IV Status: Completed infusion tl4 16:36 Drug: Acetaminophen PO 1000 mg PO once Route: PO; tl4 18:07 Follow up: Response: Pain is decreased tl4 18:00 Drug: Ampicillin-Sulbactam Sodium IVPB 3 grams IVPB once over 30 mins; (mix in 100 mL tl4 NS) Route: IVPB; Infused Over: 30 mins; Site: right antecubital; Delivery: Primary tubing; 18:43 Follow up: Response: No adverse reaction; IV Status: Completed infusion tl4 Medication: 18:33 VIS not applicable for this client. tl4 Outcome: 17:19 Decision to Hospitalize by Provider. rt 20:19 Condition: good jj7 20:47 Admitted to Med/surg Report called to SHANEL KNUTSON jj7 20:47 Admitted to Med/surg accompanied by tech, room 232, 20:50 Patient left the ED. jj7 Signatures: Dispatcher [employer] EDMS Crys Coelho RN RN iw Lewis, Lynsay, RN RN ll1 Johnson, Juwairiyah, RN RN jj7 Kristian Valderrama MD MD rt Kera Deleon Toni tl4 Corrections: (The following items were deleted from the chart) 20:48 20:19 Admitted to Med/surg accompanied by tech, room 232, Report called to SUSANA [id number] jj7
[2023-09-09] MEDS ORDERED: NA CHLORIDE 0.9% 100 ML ONE (18:09)
[2023-09-09] MEDS ORDERED: AMPICILLIN/SULBACTAM 3GM/VIAL ONE (18:09)
[2023-09-09] MEDS ORDERED: FOSPHENYTOIN PE 1,000 MG in NA CHLORIDE 0.9% 100 ML IV ONE (18:56)
[2023-09-09] MEDS ORDERED: ALBUTEROL 2.5 MG/3 ML NEB SOL NEB PRN (18:57)
[2023-09-09] MEDS ORDERED: ACETAMINOPHEN 500 MG TAB PO PRN (18:57)
[2023-09-09] MEDS ORDERED: ONDANSETRON 4 MG/2 ML VIAL IV PRN (18:57)
--- NOTE | 2023-09-09 19:14 | P.HP ---
Certification for Inpatient Patient admitted to: Observation With expected LOS: <2 Midnights Patient will require the following post-hospital care: None Practitioner: I am a practitioner with admitting privileges, knowledge of patient current condition, hospital course, and medical plan of care. Services: Services provided to patient in accordance with Admission requirements found in Title 42 Section 412.3 of the Code of Federal Regulations <Jayna Kan - Last Filed: 09/09/23 22:15> Patient History Date of Service: 09/09/23 Reason for admission: Seizures, Left sided head ache, Pneumonia History of Present Illness: is a 58-year-old male patient with a history of hypertension, CAD, diabetes IDDM, seizures, CVA, bipolar disorder presented to the ER with complaining of seizures and headache. Patient reports that patient has been having seizures for a long time. Patient started having headaches since yest erday under the left eye and the pain got worse today that she decided to come to the hospital. Patient reports that he has been a patient of neurologist Dr. Rosas and tried Keppra for that seizures but he stopped taking Keppra almost 6 months ago as he was not feeling well on the medicine. Patient is has been getting on and off seizures at home but not taking any medications nor seeing any doctors. Patient denies chest pain, discomfort or palpitation. Patient denies shortness of breath, fever or chills. Patient denies abdominal pain, nausea or vomiting. ED course patient is alert oriented x3, no headache at this time. Vital signs blood pressure 147/92, pulse 97, respiration 14, pulse ox 95% on room air. EKG showing normal sinus rhythm patient was given acetaminophen 1000 mg p.o. x1, mag sulfate 2 g IV piggyback x1, diphenhydramine 25 mg IV push, metoclopramide 10 mg IV push. Initial lab works are unremarkable, chest x-ray showing pulmonary opacities, pulmonary edema versus pneumonia admitting the patient with a diagnosis of seizures, pneumonia. Home medications list reviewed: Yes - Past Medical/Surgical History Diabetic: Yes -: bipolar -: htn -: stroke -: MAUREEN on CPAP -: HLD -: T2DM -: CHF -: atrial flutter -: neuropathy -: 'seizures' -: rt and left knee -: l elbow -: vasectomy -: ventral hernia repair x2 -: r hand -: r and l rotator cuff -: tonsillectomy -: hernia repair x3 - Family History Father -: Diabetes, Cancer Mother -: Diabetes - Social History Alcohol use: No CD- Drugs: No Caffeine use: No <Jayna Kan - Last Filed: 09/09/23 22:15> Date of Service: 09/10/23 <Corby Shaikh - Last Filed: 09/10/23 06:47> Allergies diltiazem [From Cardizem] Allergy (Intermediate, Verified 03/28/17 01:35) Hives Home Medications: Atorvastatin Calcium [Lipitor] 1 tab PO BEDTIME 01/28/21 Lisinopril [Zestril] 1 tab PO DAILY 01/28/21 cloNIDine HCL [Clonidine HCl] 1 tab PO Q8H 01/28/21 Aspirin Chewable [Aspirin Chewable*] 81 mg PO DAILY 09/09/23 Butalb/Acetaminophen/Caffeine [Rfovhl-Edjvdvkg-Qirq 50-325-40] 1 each PO Q6HP PRN 09/09/23 Cyclobenzaprine [Flexeril] 10 mg PO QIDP PRN 09/09/23 Duloxetine HCl [Cymbalta] 60 mg PO BID 09/09/23 Metformin HCl 1,000 mg PO BIDWM 09/09/23 glipiZIDE [Glipizide] 10 mg PO BID 09/09/23 lamoTRIgine [Lamotrigine] 200 mg PO BID 09/09/23 Review of Systems 10-point ROS is otherwise unremarkable <Jayna Kan - Last Filed: 09/09/23 22:15> Physical Examination - Physical Exam General: Alert, Oriented x3 HEENT: Atraumatic, Normocephalic Respiratory: Clear to auscultation bilaterally, Normal air movement Cardiovascular: No edema, Normal pulses, Normal S1 S2 Capillary refill: <2 Seconds Gastrointestinal: Normal bowel sounds, Soft and benign Musculoskeletal: No clubbing, No swelling Integumentary: No rashes Neurological: Normal gait, Normal speech, Normal affect - Studies Laboratory Data (last 24 hrs) 09/09/23 09/09/23 09/09/23 15:41 15:41 15:41 WBC 14.30 H Hgb 16.7 Hct 50.1 H Plt Count 313 PT 12.1 INR 1.10 Sodium 139 Potassium 4.3 BUN 23 H Creatinine 1.39 H Glucose 307 H Magnesium 2.2 Total Bilirubin 0.9 AST 18 ALT 23 Alkaline Phosphatase 91 <Jayna Kan - Last Filed: 09/09/23 22:15> - Studies Laboratory Data (last 24 hrs) 09/09/23 09/09/23 09/09/23 15:41 15:41 15:41 WBC 14.30 H Hgb 16.7 Hct 50.1 H Plt Count 313 PT 12.1 INR 1.10 Sodium 139 Potassium 4.3 BUN 23 H Creatinine 1.39 H Glucose 307 H Magnesium 2.2 Total Bilirubin 0.9 AST 18 ALT 23 Alkaline Phosphatase 91 <ShaikhCorby Juan José - Last Filed: 09/10/23 06:47> Assessment and Plan - Problems (Diagnosis) (1) Headache around the eyes Current Visit: Yes Status: Acute (2) Seizures Current Visit: No Status: Chronic (3) Diabetes mellitus Current Visit: No Status: Chronic Qualifiers: Diabetes mellitus type: type 2 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 insulin use: without alf use Diabetes mellitus complication status: with hypoglycemia Diabetes mellitus complication detail: without coma Qualified Code(s): E11.649 - Type 2 diabetes mellitus with hypoglycemia without coma (4) History of CVA (cerebrovascular accident) Current Visit: No Status: Chronic (5) Hyperlipidemia Current Visit: No Status: Chronic Qualifiers: Hyperlipidemia type: unspecified Qualified Code(s): E78.5 - Hyperlipidemia, unspecified (6) Hypertension Current Visit: No Status: Chronic Qualifiers: Hypertension type: primary hypertension Qualified Code(s): I10 - Essential (primary) hypertension (7) Migraine headache Current Visit: Yes Status: Acute - Plan 1) Headache around the eyes Patient came in with a severe headache under the left eye started since yesterday got worse today Patient's pain improved after Tylenol 1 g p.o. x1 in the ER Patient patient has history of migraine episodes We will continue to monitor (2) Seizures Current Visit: No Status: Chronic Chronic, worsening. Patient reports having generalized seizures multiple times a day for almost 1 year Patient has been a patient of neurologist Dr. Rosas and treated with the Keppra Patient stopped taking Keppra 6 months ago as he was not feeling well on the med ication Admit the patient in the hospital, fosphenytoin 1 g IV x1 loading dose and start Dilantin 100 mg p.o. [address] Rosas for further recommendations (3) Diabetes mellitus Current Visit: No Status: Chronic Chronic, patient's blood sugar is 307 on the lab today. Patient reports his blood sugar has been controlled on insulin 15 units subcu twice daily blood patient has been not taking his insulin or any other medication for last 2 days because of the headache Patient denies hypoglycemia Blood sugar checks before meals and at bedtime with moderate dose sliding scale with regular insulin A1c in the morning (4) History of CVA (cerebrovascular accident) Current Visit: No Status: Chronic Chronic, no residual weaknesses, on aspirin 81 mg p.o. daily Will continue to monitor and resume home meds (5) Hyperlipidemia Chronic, controlled not on any statins at this time We will check the A1c lipid panel in the morning And treat accordingly (6) Hypertension Chronic, controlled on lisinopril and clonidine at home as per the patient's GFR 58 We will watch vital signs closely and adjust the medication accordingly CODE STATUS Full code DVT prophylaxis Heparin Diet Diabetic diet Discharge Plan: Home Plan to discharge in: 24 Hours - Advance Directives Does patient have a Living Will: No Does patient have a Durable POA for Healthcare: No - Code Status/Comfort Care Code Status Assessed: Yes (full code) Code Status: Full Code Physician Review: Patient Assessed, Agree with Above Assessment and Plan Critical Care: Yes Time Spent Managing Pts Care (In Minutes): 55 (minutes) <Jayna Kan - Last Filed: 09/09/23 22:15> Date of Service: 09/09/[address] Rosas and nurse practitioner. Patient not having any active seizures. Patient has been here in the past for specific neurologic issues. He has not taken his Keppra. After speak with Dr. Rosas who recommended loading with fosphenytoin and starting on Dilantin 300 daily. Patient has not had a seizure since patient has been in the ER. The patient was status and we would recommend transfer as we do not do EEGs. Since patient is not having status and we can except the patient as loading with fosphenytoin and then discharged with outpatient follow-up. We may do an MRI in the morning as well. Dr. Rosas will not be available until Saturday. <Corby Shaikh - Last Filed: 09/10/23 06:47>
[2023-09-09 20:27] LABS: Thyroid Stimulating Hormone 1.06 uIU/mL (0.358-3.740)
[2023-09-09 21:18] VITALS: BMI 35.2
[2023-09-09] MEDS: INSULIN REGULAR (HUMAN) 100 UNIT/ML SQ SCH (21:42)
[2023-09-09] MEDS: HEPARIN 5000 UNIT/ML 1 ML VIAL SQ SCH (23:58)
[2023-09-10] MEDS: ACETAMIN/CAFFEINE/BUTALB TAB PO PRN ×2 (00:21→06:13)
[2023-09-10] MEDS ORDERED: ACETAMIN/CAFFEINE/BUTALB TAB PO ONE ×2 (00:31→06:24)
[2023-09-10 03:18] LABS: Absolute Lymphocytes (CBC) 1.9 K/uL (0.7-4.9); Hematocrit 43.9 % (39.6-49.0); Lymphocytes % 19.5 % (15.3-44.8); MCV 89.2 fL (80-100); MPV 7.4 fL (7.6-11.3); Platelets 260 thou/uL (152-406); RBC Red Blood Cell Count 4.92 M/uL (4.33-5.43)
[2023-09-10 04:10] LABS: Magnesium 2.6 mg/dL (1.6-2.4); Phosphorus 3.1 mg/dL (2.5-4.9); Potassium 4.5 mEq/L (3.5-5.1)
[2023-09-10] MEDS ORDERED: BENZONATATE 100 MG CAP PO PRN (05:13)
[2023-09-10] MEDS ORDERED: INFLUENZA VACCINE (for 6+ mo) 0.5 ML DOSE IMVAC ONE (08:00)
[2023-09-10] MEDS ORDERED: PHENYTOIN ER 100 MG CAP PO SCH (09:00)
[2023-09-10] MEDS ORDERED: lisinopriL 10 MG TAB PO SCH (09:00)
[2023-09-10] MEDS ORDERED: AZITHROMYCIN IV 500 MG in NA CHLORIDE 0.9% 250 ML IVPB SCH (09:00)
[2023-09-10] MEDS ORDERED: ASPIRIN 81 MG CHEWABLE TABLET PO SCH (09:00)
[2023-09-10] MEDS ORDERED: lamoTRIgine 100 MG TAB PO SCH (09:00)
[2023-09-10] MEDS ORDERED: DULOXETINE 30 MG CAP PO SCH (09:00)
[2023-09-10] MEDS ORDERED: CEFTRIAXONE 1,000 MG in NA CHLORIDE 0.9% 50 ML IVPB SCH (09:00)
[2023-09-10] MEDS: INSULIN REGULAR (HUMAN) 100 UNIT/ML SQ SCH ×2 (09:05→12:28)
[2023-09-10] MEDS ORDERED: ONDANSETRON 4 MG/2 ML VIAL IV PRN (09:10)
[2023-09-10] MEDS: HEPARIN 5000 UNIT/ML 1 ML VIAL SQ SCH (10:04)
[2023-09-10 10:14] VITALS: O2SAT 96
[2023-09-10] MEDS ORDERED: LORazepam 2 MG/ML VIAL IV ONE (10:59)
[2023-09-10] MEDS ORDERED: ALBUTEROL 2.5 MG/3 ML NEB SOL NEB PRN (12:00)
--- NOTE | 2023-09-10 12:54 | RAD REPORT ---
EXAM DESCRIPTION: MRI - Brain Wo Cont - 09/10/2023 12:46 pm CLINICAL HISTORY: seizures, left sided headache COMPARISON: Head Brain Wo Cont dated 09/09/2023; Head Brain Wo Cont dated 01/27/2021 TECHNIQUE: Sagittal T1-weighted images were obtained along with PD/heavily T2-weighted and T2-FLAIR images. Axial DWI and ADC mapping sequences were also obtained along with coronal heavily T2-weighted images were obtained. FINDINGS: No intracranial hemorrhage, mass or acute infarction. There is no edema or shift of midlin e structures. No extra-axial fluid collections. Signal voids are seen as a normal finding in the andrzej r intracranial vessels. No significant white matter disease. Left sphenoid sinus opacification. Ethmoid air cell thickening. IMPRESSION: No acute intracranial abnormality. Paranasal sinus disease.
--- NOTE | 2023-09-10 13:43 | P.DS ---
Admission Date: 09/09/23 Discharge Date: 09/10/23 Disposition: ROUTINE DISCHARGE Discharge Condition: GOOD Reason for Admission: Seizures, Left sided head ache, Pneumonia Brief History of Present Illness: is a 58-year-old male patient with a history of hypertension, CAD, diabetes IDDM, seizures, CVA, bipolar disorder presented to the ER with complaining of seizures and headache. Patient reports that patient has been having seizures for a long time. Patient started having headaches since yesterday under the left eye and the pain got worse today that she decided to come to the hospital. Patient reports that he has been a patient of neurologist Dr. Rosas and tried Keppra for that seizures but he stopped taking Keppra almost 6 months ago as he was not feeling well on the medicine. Patient is has been getting on and off seizures at home but not taking any medications nor seeing any doctors. Patient denies chest pain, discomfort or palpitation. Patient denies shortness of breath, fever or chills. Patient denies abdominal pain, nausea or vomiting. ED course patient is alert oriented x3, no headache at this time. Vital signs blood pressure 147/92, pulse 97, respiration 14, pulse ox 95% on room air. EKG showing normal sinus rhythm patient was given acetaminophen 1000 mg p.o. x1, mag sulfate 2 g IV piggyback x1, diphenhydramine 25 mg IV push, metoclopramide 10 mg IV push. Initial lab works are unremarkable, chest x-ray showing pulmonary opacities, pulmonary edema versus pneumonia admitting the patient with a diagnosis of seizures, pneumonia. Hospital Course: Since admission patient has not had significant seizure but did have episode of anxiety. He had an MRI done and it showed no acute intracranial pathology. Patient is deemed stable for discharge to continue with outpatient medication for seizure control and follow-up with Dr. Rosas as scheduled on outpatient. He will also get an oral azithromycin dose for management of suspected atypical pneumonia based on chest x-ray finding. Vital Signs/Physical Exam: Temp Pulse Resp BP Pulse Ox 97.8 F 75 16 135/58 L 92 09/10/23 08:00 09/10/23 10:03 09/10/23 08:00 09/10/23 10:03 09/10/23 08:00 General: Alert, Oriented x3 HEENT: Atraumatic, Normocephalic Neck: Supple Respiratory: Normal air movement Cardiovascular: Regular rate/rhythm, Normal S1 S2 Gastrointestinal: Soft and benign Musculoskeletal: No swelling Neurological: Normal speech, Normal strength at 5/5 x4 extr Laboratory Data at Discharge: WBC 9.70 thou/uL (4.3-10.9) 09/10/23 02:33 Hgb 15.5 g/dL (13.6-17.9) 09/10/23 02:33 Hct 43.9 % (39.6-49.0) 09/10/23 02:33 Plt Count 260 thou/uL (152-406) 09/10/23 02:33 PT 12.1 SECONDS (9.5-12.5) 09/09/23 15:41 INR 1.10 09/09/23 15:41 Sodium 138 mEq/L (136-145) 09/10/23 02:33 Potassium 4.5 mEq/L (3.5-5.1) 09/10/23 02:33 BUN 27 mg/dL (7-18) H 09/10/23 02:33 Creatinine 1.32 mg/dL (0.70-1.30) H 09/10/23 02:33 Glucose 341 mg/dL (74-106) H 09/10/23 02:33 Phosphorus 3.1 mg/dL (2.5-4.9) 09/10/23 02:33 Magnesium 2.6 mg/dL (1.6-2.4) H 09/10/23 02:33 Total Bilirubin 0.9 mg/dL (0.2-1.0) 09/09/23 15:41 AST 18 U/L (15-37) 09/09/23 15:41 ALT 23 U/L (16-61) 09/09/23 15:41 Alkaline Phosphatase 91 U/L (45-117) 09/09/23 15:41 Triglycerides 236 mg/dL (<150) H 09/10/23 02:33 Cholesterol 133 mg/dL (<200) 09/10/23 02:33 HDL Cholesterol 33 mg/dL (40-60) L 09/10/23 02:33 Cholesterol/HDL Ratio 4.03 09/10/23 02:33 Home Medications: Atorvastatin Calcium [Lipitor] 1 tab PO BEDTIME 01/28/21 Lisinopril [Zestril] 1 tab PO DAILY 01/28/21 cloNIDine HCL [Clonidine HCl] 1 tab PO Q8H 01/28/21 Aspirin Chewable [Aspirin Chewable*] 81 mg PO DAILY 09/09/23 Butalb/Acetaminophen/Caffeine [[place]qaba-Gcueyldy-Llhe 50-325-40] 1 each PO Q6HP PRN 09/09/23 Cyclobenzaprine [Flexeril] 10 mg PO QIDP PRN 09/09/23 Duloxetine HCl [Cymbalta] 60 mg PO BID 09/09/23 Metformin HCl 1,000 mg PO BIDWM 09/09/23 glipiZIDE [Glipizide] 10 mg PO BID 09/09/23 lamoTRIgine [Lamotrigine] 200 mg PO BID 09/09/23 Diet: ADA Activity: Ad robert Followup: Jj Quigley DO, DO [Primary Care Provider] - Flo Rosas MD [ASSOCIATE-ACTIVE - CAN ADMIT] -
[2023-09-10 14:50] VITALS: BP 133/63; TEMP 97.3
[2023-09-10] MEDS ORDERED: ATORVASTATIN 40 MG TAB PO SCH (21:00)
--- NOTE | 2023-09-11 16:55 | EKG ---
Test Date: 2023-09-09 Test Time: 16:13:09 Label Fuser Tender: RAMONA MEASUREMENT RESULTS: Intervals: Rate: 91 MA: 158 QRSD: 86 QT: 348 QTc: 428 Collins: P: 43 MA: 158 QRS: 4 T: 41 INTERPRETIVE STATEMENTS: Normal sinus rhythm Possible Inferior infarct, age undetermined Abnormal ECG Compared to ECG 01/27/2021 18:21:16 No significant changes Electronically Signed On 09-11-23 16:50:54 DIGITAL MARKETING SPECIALIST by Christopher Finch
== END 2023-09-10 16:00 | disposition home or self-care (01) ==
LOC: ER 15:11 → ERHOLD 18:46 → 2ND 20:39
PROVIDERS: ADMIT Internal Medicine Nephrology; ATTEND Internal Medicine Nephrology
DX: R56.9 Unspecified convulsions (principal); R51.9 Headache, unspecified; F41.9 Anxiety disorder, unspecified; J18.9 Pneumonia, unspecified organism; F31.9 Bipolar disorder, unspecified; I25.2 Old myocardial infarction; E11.649 Type 2 diabetes mellitus with hypoglycemia without coma; E78.5 Hyperlipidemia, unspecified; I10 Essential (primary) hypertension; Z86.73 Personal history of transient ischemic attack (TIA), and cerebral infarction without residual deficits; Z23 Encounter for immunization
CPT/HCPCS: 96365; 93005; 85025 ×2; 80048 ×2; 36415 ×2; 83735 ×2; 84100; 85610; 80061; 82947 ×3; 80076; 84443; 84484; 84439; 84145; 83880; 70450; 71045; 70551; 96375; 99285; J1815 ×3; J1644 ×2; Q2009; J3475; J2765; J1200; J0295; J2405; J7050; J0696; G0378 ×4

== ENCOUNTER → 2023-11-04 | Emergency (ER) | payer BC, OTHER ==
[~2023-11-04] MED LIST: MORPHINE 4 MG/ML SYR ONE; ONDANSETRON 4 MG/2 ML VIAL ONE
[2023-11-04 22:59] LABS: Absolute Lymphocytes (CBC) 1.9 K/uL (0.7-4.9); Hematocrit 44.7 % (39.6-49.0); Lymphocytes % 29.2 % (15.3-44.8); MCV 92.8 fL (80-100); MPV 7.7 fL (7.6-11.3); Platelets 193 thou/uL (152-406); RBC Red Blood Cell Count 4.81 M/uL (4.33-5.43)
[2023-11-04 23:10] LABS: Protime INR 0.98
[2023-11-04 23:15] LABS: Potassium 4.1 mEq/L (3.5-5.1)
--- NOTE | 2023-11-05 00:31 | EDPHYS ---
Physician Documentation [facility] Name: Diogenes Power Jr Age: 58 yrs Sex: Male : 1965 Arrival Date: 11/04/2023 Time: 22:23 Bed 15 Private MD: ED Physician Hayes Mcwilliams HPI: 11/04 22:30 This 58 yrs old Male presents to ER via EMS with complaints of Fall Down Stairs. cp 22:30 Details of fall: The patient fell from a height, down approximately 10 stairs, and cp struck a concrete surface. Onset: The symptoms/episode began/occurred just prior to arrival. 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 Fell cp backward onto buttocks and struck back against concrete stairs. No LOC. C/o pain to back and shoulders. Historical: - Allergies: 23:08 Cardizem; km8 - PMHx: 23:08 Bipolar disorder; CVA; Diabetes - NIDDM; heart attack; Hypertension; Myocardial km8 infarction; Seizures; - PSHx: 23:08 heart cath; hernia repair x 2; km8 - Immunization history:: Client reports receiving the 2nd dose of the Covid vaccine, Flu vaccine is not up to date. - Social history:: Smoking status: Patient reports use of chewing tobacco. Patient/guardian denies using tobacco, Stopped _ months ago 4 Patient/guardian denies using alcohol, street drugs. ROS: 22:35 Constitutional: Negative for body aches, chills, fever, poor PO intake, cp 22:35 Neck: Positive for pain with movement, pain at rest, tenderness, cp 22:35 Cardiovascular: Negative for chest pain, palpitations, 22:35 Respiratory: Negative for shortness of breath, wheezing, 22:35 Abdomen/GI: Negative for abdominal pain, vomiting, diarrhea, constipation, 22:35 Back: Positive for pain at rest, pain with movement, 22:35 MS/extremity: Positive for pain, of the right shoulder and left shoulder, Negative for decreased range of motion, deformity, 22:35 Neuro: Negative for altered mental status, loss of consciousness, numbness, syncope, weakness, 22:35 All other systems are negative, Exam: 22:40 Constitutional: The patient appears in no acute distress, alert, awake, cp non-diaphoretic, non-toxic, well developed, well nourished, obese, uncomfortable, 22:40 Head/face: Noted is tenderness, that is mild, of the left occipital area and right cp occipital area, 22:40 Eyes: Periorbital structures: appear normal, Conjunctiva: normal, no exudate, no cp injection, Sclera: no appreciated abnormality, Lids and lashes: appear normal, bilaterally, 22:40 ENT: External ear(s): are unremarkable, Nose: is normal, Mouth: Lips: moist, Oral mucosa: pink and intact, moist, Posterior pharynx: is normal, airway is patent, no erythema, no exudate, 22:40 Neck: C-spine: C-collar placed in ED, vertebral tenderness, that is mild, appreciated at C4 and C5, crepitus, is not appreciated, 22:40 Chest/axilla: Inspection: normal, Palpation: is normal, no crepitus, no tenderness, 22:40 Cardiovascular: Rate: normal, Rhythm: regular, Edema: is not appreciated, JVD: is not appreciated, 22:40 Respiratory: the patient does not display signs of respiratory distress, Respirations: normal, no use of accessory muscles, no retractions, labored breathing, is not present, Breath sounds: are clear throughout, no decreased breath sounds, no stridor, no wheezing, 22:40 Abdomen/GI: Inspection: obese Bowel sounds: active, all quadrants, Palpation: abdomen is soft and non-tender, in all quadrants, 22:40 Back: pain, that is moderate, of the thoracic area, ROM is painful, with all movement, 22:40 Musculoskeletal/extremity: Extremities: grossly normal except: noted in the posterior right shoulder and posterior left shoulder: pain, There is no evidence of decreased ROM, deformity, 22:40 Skin: no rash present. 22:40 Neuro: Orientation: to person, place \T\ time. Mentation: is normal, Motor: moves all fours, strength is normal, Sensation: is normal, 22:47 ECG was reviewed by the Attending Physician. Vital Signs: 22:27 BP 140 / 91; Pulse 98; Resp 16; Temp 97.6(IR); Pulse Ox 96% on R/A; Weight 120.66 kg km8 (R); Height 5 ft. 11 in. (R); Pain 10/10; 23:00 BP 134 / 81; Pulse 89; Resp 16; Pulse Ox 92% on R/A; 8 23:30 BP 150 / 98; Pulse 87; Resp 16; Pulse Ox 94% on R/A; [facility] 11/05 00:00 BP 144 / 89; Pulse 86; Resp 16; Pulse Ox 94% on R/A; 8 00:30 BP 142 / 90; Pulse 80; Resp 16; Pulse Ox 100% on R/A; [facility] 11/04 22:27 Body Mass Index 37.10 (120.66 kg, 180.34 cm) [facility] 11/04 22:27 Pain Scale: Adult 8 [place] Coma Score: 11/04 22:31 Eye Response: spontaneous(4). Motor Response: obeys commands(6). Verbal Response: [facility] oriented(5). Total: 15. MDM: 22:29 Patient medically screened. 23:00 Differential diagnosis: closed head injury, contusion, fracture, laceration, multiple cp trauma. 11/05 00:30 Data reviewed: vital signs, nurses notes, lab test result(s), EKG, radiologic studies, cp CT scan. 00:30 I considered the following discharge prescriptions or medication management in the emergency department Medications were administered in the Emergency Department. See MAR. Independent interpretation of the following test(s) in the Emergency Department EKG: See my EKG interpretation above. Care significantly affected by the following chronic conditions: Diabetes, Hypertension. Counseling: I had a detailed discussion with the patient and/or guardian regarding the historical points, exam findings, and any diagnostic results supporting the discharge/admit diagnosis, lab results, radiology results, the need for outpatient follow up, a family practitioner, to return to the emergency department if symptoms worsen or persist or if there are any questions or concerns that arise at home. Response to treatment: the patient's symptoms have markedly improved after treatment, and as a result, I will discharge patient. 11/04 22:29 Order name: Basic Metabolic Panel; Complete Time: 00:28 11/05 00:28 Interpretation: Normal except: CL 111; GLUC 126; BUN 23; CRE 1.55; GFR 51. 11/04 22:29 Order name: CBC with Diff; Complete Time: 00:28 cp 11/05 00:28 Interpretation: Normal except: RDW 16.5. cp 11/04 22:29 Order name: Type And Screen; Complete Time: 00:28 cp 11/04 22:29 Order name: PT-INR; Complete Time: 00:28 cp 11/04 23:33 Order name: Head C Spine Cap Wo Con EDMS 11/04 22:29 Order name: Labs collected and sent; Complete Time: 22:55 cp 11/04 22:29 Order name: EKG - Nurse/Tech; Complete Time: 22:44 cp 11/04 22:29 Order name: C-Collar; Complete Time: 22:33 cp EC/15 22:47 Rate is 92 beats/min. Rhythm is regular. UT interval is normal. QRS interval is normal. cp QT interval is normal. T waves are Inverted in leads III, aVR. Interpreted by me. Reviewed by me. Administered Medications: 22:58 Drug: morphine IVP or IV 4 mg IVP once over 4 mins Route: IVP; Infused Over: 4 mins; [facility] Site: left forearm; 11/05 01:03 Follow up: Response: No adverse reaction; Pain is decreased [facility] 11/04 22:58 Drug: Ondansetron IVP 4 mg IVP once; over 2 minutes Route: IVP; Site: left forearm; [facility] 11/05 01:03 Follow up: Response: No adverse reaction; Pain is decreased [facility] Disposition Summary: 11/05/23 00:30 Discharge Ordered Notes: Location: Home cp Problem: new cp Symptoms: have improved cp Condition: Stable cp Diagnosis - Fall (on) (from) other stairs and steps cp - Cervicalgia cp - Dorsalgia, unspecified cp - Pain in right shoulder cp - Pain in left shoulder cp Followup: cp - With: Private Physician - When: 2 - 3 days - Reason: Recheck today's complaints Discharge Instructions: - Discharge Summary Sheet cp - Acute Back Pain, Adult cp - Shoulder Pain cp - Shoulder Range of Motion Exercises cp - Neck Exercises cp Forms: - Medication Reconciliation Form cp - Thank You Letter cp - Antibiotic Education cp - Prescription Opioid Use cp - Patient Portal Instructions cp - Leadership Thank You Letter cp Prescriptions: - Cyclobenzaprine 10 mg Oral Tablet - take 1 tablet ORAL route every 8 hours As needed; 30 tablet; Refills: 0, cp Product Selection Permitted - Diclofenac Sodium 75 mg Oral Tablet Sustained Release - take 1 tablet ORAL route 2 times per day; 30 tablet; Refills: 0, Product cp Selection Permitted Signatures: Dispatcher [employer] EDMS Jordan Azul PA PA cp Marx, Katie RN RN km8 Corrections: (The following items were deleted from the chart) 11/04 23:33 22:29 Head C Spine CAP W Con+CT.RAD.BRZ ordered. EDMS EDMS 23:54 23:53 This 58 yrs old Male presents to ER via EMS with complaints of Fall Down Stairs. cp cp
--- NOTE | 2023-11-05 00:31 | ER ---
Nurse's Notes [facility] Name: Diogenes Power Jr Age: 58 yrs Sex: Male : 1965 Arrival Date: 11/04/2023 Time: 22:23 Bed 15 Private MD: Diagnosis: Fall (on) (from) other stairs and steps;Cervicalgia;Dorsalgia, unspecified;Pain in right shoulder;Pain in left shoulder Presentation: 11/04 22:27 Chief complaint: EMS states: tone out for pt slipping down 1 flight of stairs while at km8 work; pt reports pain to left side of back of head, bilateral shoulders, and lower back; pt denies LOC, was ambulatory on scene for EMS. Coronavirus screen: Client denies travel out of the [place] in the last 14 days. Ebola Screen: No symptoms or risks identified at this time. Initial Sepsis Screen: Does the patient meet any 2 criteria? No. Patient's initial sepsis screen is negative. Does the patient have a suspected source of infection? No. Patient's initial sepsis screen is negative. Risk Assessment: Do you want to hurt yourself or someone else? Patient reports no desire to harm self or others. Onset of symptoms was November 04, 2023. Care prior to arrival: IV initiated. 20 GA, in the left forearm, Glucose check: 113. 22:27 Acuity: ESA 3 km8 22:27 Method Of Arrival: EMS: [facility] 8 Triage Assessment: 22:27 General: Appears in no apparent distress. comfortable, Behavior is calm, cooperative, km8 appropriate for age. Pain: Complains of pain in scalp, bilateral shoulders, and low back area Pain currently is 12 out of 10 on a pain scale. Quality of pain is described as aching. EENT: No signs and/or symptoms were reported regarding the EENT system. Neuro: Level of Consciousness is awake, alert, obeys commands, Oriented to person, place, time, situation, Reports headache. Cardiovascular: Denies chest pain, shortness of breath, Capillary refill < 3 seconds Patient's skin is warm and dry. Respiratory: Airway is patent Respiratory effort is even, unlabored, Respiratory pattern is regular, symmetrical. GI: No signs and/or symptoms were reported involving the gastrointestinal system. : No signs and/or symptoms were reported regarding the genitourinary system. Derm: No signs and/or symptoms reported regarding the dermatologic system. Skin is intact, is healthy with good turgor, Skin is dry, Skin is pink, warm \T\ dry. normal, Skin temperature is warm. Musculoskeletal: Circulation, motion, and sensation intact. Range of motion: intact in all extremities, Reports pain in scalp, bilateral shoulders, and low back area. Historical: - Allergies: 23:08 Cardizem; km8 - PMHx: 23:08 Bipolar disorder; CVA; Diabetes - NIDDM; heart attack; Hypertension; Myocardial km8 infarction; Seizures; - PSHx: 23:08 heart cath; hernia repair x 2; km8 - Immunization history:: Client reports receiving the 2nd dose of the Covid vaccine, Flu vaccine is not up to date. - Social history:: Smoking status: Patient reports use of chewing tobacco. Patient/guardian denies using tobacco, Stopped _ months ago 4 Patient/guardian denies using alcohol, street drugs. Screenin:31 [facility] ED Fall Risk Assessment (Adult) History of falling in the last 3 months, km8 including since admission Yes- single mechanical fall (1 pt) Confusion or Disorientation No (0 pts) Intoxicated or Sedated No (0 pts) Impaired Gait No (0 pts) Mobility Assist Device Used No (0 pt) Altered Elimination No (0 pt) Score/Fall Risk Level 0 - 2 = Low Risk Oriented to surroundings, Maintained a safe environment, Educated pt \T\ family on fall prevention, incl call for assistance when getting out of bed, Assessed \T\ reinforced patient's understanding of fall precautions. Abuse screen: Denies threats or abuse. Denies injuries from another. Nutritional screening: No deficits noted. Tuberculosis screening: No symptoms or risk factors identified. Assessment: 22:31 General: see triage assessment/notes. km8 23:00 Reassessment: Patient appears in no apparent distress at this time. No changes from 8 previously documented assessment. Patient and/or family updated on plan of care and expected duration. Pain level reassessed. Patient is alert, oriented x 3, equal unlabored respirations, skin warm/dry/pink. 11/05 00:00 Reassessment: Patient appears in no apparent distress at this time. No changes from 8 previously documented assessment. Patient and/or family updated on plan of care and expected duration. Pain level reassessed. Patient is alert, oriented x 3, equal unlabored respirations, skin warm/dry/pink. 01:00 Reassessment: Patient appears in no apparent distress at this time. Patient and/or km8 family updated on plan of care and expected duration. Pain level reassessed. Patient is alert, oriented x 3, equal unlabored respirations, skin warm/dry/pink. Patient states symptoms have improved. Vital Signs: 11/04 22:27 BP 140 / 91; Pulse 98; Resp 16; Temp 97.6(IR); Pulse Ox 96% on R/A; Weight 120.66 kg km8 (R); Height 5 ft. 11 in. (R); Pain 10/10; 23:00 BP 134 / 81; Pulse 89; Resp 16; Pulse Ox 92% on R/A; km8 23:30 BP 150 / 98; Pulse 87; Resp 16; Pulse Ox 94% on R/A; [facility] 11/05 00:00 BP 144 / 89; Pulse 86; Resp 16; Pulse Ox 94% on R/A; km8 00:30 BP 142 / 90; Pulse 80; Resp 16; Pulse Ox 100% on R/A; 8 11/04 22:27 Body Mass Index 37.10 (120.66 kg, 180.34 cm) [facility] 11/04 22:27 Pain Scale: Adult km8 Douglas Coma Score: 11/04 22:31 Eye Response: spontaneous(4). Motor Response: obeys commands(6). Verbal Response: km8 oriented(5). Total: 15. ED Course: 22:27 Patient arrived in ED. km8 22:27 Jordan Azul PA is PHCP. cp 22:27 Hayes Mcwilliams MD is Attending Physician. cp 22:27 Arm band placed on left wrist. km8 22:29 Triage completed. km8 22:31 Adela Omalley, KENNETH is Primary Nurse. km8 22:31 Patient has correct armband on for positive identification. Bed in low position. Call km8 light in reach. Side rails up X2. Warm blanket given. 22:31 No provider procedures requiring assistance completed. Patient maintains SpO2 km8 saturation greater than 95% on room air. 22:31 Maintain EMS IV. Dressing intact. Good blood return noted. Site clean \T\ dry. Gauge \T\ km 8 site: 20 gauge left forearm. 22:55 Basic Metabolic Panel Sent. km8 22:55 CBC with Diff Sent. km8 22:55 Type And Screen Sent. km8 22:55 PT-INR Sent. km8 23:44 Head C Spine Cap Wo Con In Process Unspecified. EDMS 11/05 01:03 Provided Education on: d/c teaching. km8 01:03 IV discontinued, intact, bleeding controlled, No redness/swelling at site. Pressure km8 dressing applied. Administered Medications: 11/04 22:58 Drug: morphine IVP or IV 4 mg IVP once over 4 mins Route: IVP; Infused Over: 4 mins; km8 Site: left forearm; 11/05 01:03 Follow up: Response: No adverse reaction; Pain is decreased km8 11/04 22:58 Drug: Ondansetron IVP 4 mg IVP once; over 2 minutes Route: IVP; Site: left forearm; km8 11/05 01:03 Follow up: Response: No adverse reaction; Pain is decreased km8 Medication: 11/04 22:31 VIS not applicable for this client. km8 Outcome: 11/05 00:30 Discharge ordered by MD. cp 01:03 Discharged to home ambulatory, with significant other, km8 01:03 Condition: good 01:03 Discharge instructions given to patient, significant other, Instructed on discharge instructions, follow up and referral plans. medication usage, Demonstrated understanding of instructions, follow-up care, medications, Prescriptions given X 2, 01:04 Patient left the ED. km8 Signatures: Dispatcher [employer] EDND Jordan Azul PA PA cp Marx, Katie RN RN km8 Corrections: (The following items were deleted from the chart) 11/04 23:09 22:27 Pain: Complains of pain in scalp, bilateral shoulders, and low back area Quality km8 of pain is described as aching, km8
[2023-11-05 02:38] VITALS: BP 142/90; TEMP 97.6; O2SAT 100
--- NOTE | 2023-11-06 15:14 | RAD REPORT ---
EXAM DESCRIPTION: Head C Spine Cap Wo Con CLINICAL HISTORY: Fall COMPARISON: 09/09/2023 TECHNIQUE: Axial CT of the head obtained from the skull apex to the skull base without contrast. Axi al CT images of the cervical spine obtained without contrast. Axial CT images of the chest, abdomen, and pelvis obtained without contrast This exam was performed according to our departmental dose-optim ization program, which includes automated exposure control, adjustment of the mA and/or kV according to patient size and/or use of iterative reconstruction technique. FINDINGS: Head CT: No acute intracranial hemorrhage identified. No mass, mass effect, shift of the midline, abnormal ext ra-axial fluid collection or CT evidence of acute ischemic change identified. The ventricular system and sulcal spaces are mildly enlarged compatible with mild cerebral atrophy. Scattered areas of hyp odensity throughout the supratentorial white matter are nonspecific and may be related to chronic sma ll vessel ischemic change. Mild mucosal thickening of the paranasal sinuses. No skull fracture identified. Visualized orbits a nd globes are unremarkable. Atherosclerotic calcification of the intracranial internal carotid arteri es. Cervical CT : Straightening of the cervical lordosis may be secondary to patient positioning. The atlantoaxial, a tlantodental, and occipitoatlantal intervals are preserved. No fracture identified. Vertebral body height preserved. Prevertebral soft tissues are unremarkable. Mild multilevel loss of intervertebral disc height with endplate spondylosis, facet arthropathy, and uncovertebral spurring. Posterior disc osteophyte complex at multiple levels mildly encroach upon the anterior spinal canal. Mild neural foraminal narrowing. Visualized skull base is intact. No cervical lymphadenopathy. No pneumothorax in the visualized brenda ng apices. Chest: Thyroid: No abnormalities of the visualized thyroid. Great Vessels: Great vessels have normal anatomic configuration. Thoracic Aorta: No abnormalities of the thoracic aorta identified. Pulmonary arteries: The main pulmonary artery is not dilated. Heart: No cardiomegaly, significant pericardial effusion, or coronary artery atherosclerosis Lymph Nodes: No enlarged mediastinal lymph nodes identified. Esophagus: No abnormalities of the esophagus identified Other: No additional findings. Lungs: Mild respiratory motion artifact. Minimal bibasilar atelectasis. Pleura: No pleural effusion or pneumothorax. Trachea/Airways: No abnormalities of the visualized trachea or airways. Abdomen: Liver: Hepatomegaly with diffusely decreased density. Gallbladder: Calcified gallstones. Spleen, Pancreas, and Adrenal Glands: Splenomegaly. Kidneys: The kidneys have normal size and contour without evidence of solid mass or hydronephrosis. Vasculature: Aortoiliac atherosclerosis. Stomach: The stomach and duodenum have normal course. Other: No free intraperitoneal air. No free fluid or lymphadenopathy. Ventral hernia repair. Pelvis: Bladder: Urinary bladder is unremarkable. Bowel: No dilated loops of large or small bowel. Scattered diverticula of the colon. Appendix: Normal appendix. Pelvis: Prostate is not enlarged. Bones: No acute fractures identified. Multilevel degenerative endplate spondylosis, disc narrowing, a nd facet arthropathy. Osteoarthritic change of the hips. IMPRESSION: 1. No acute intracranial abnormality identified. 2. No acute fracture or subluxation of the cervical spine. 3. No acute traumatic injury identified in the chest, abdomen, or pelvis. 4. Hepatosplenomegaly with hepatic steatosis. 5. Cholelithiasis. 6. Diverticulosis without evidence of acute diverticulitis. Electronically signed by: Ajith Sharpe DO 11/05/2023 12:04 AM SALES ENABLEMENT CONSULTANT M Due to temporary technical issues with the PACS/Fluency reporting system, reports are being signed by the in house radiologists without review as a courtesy to insure prompt reporting. The interpreting radiologist is fully responsible for the content of the report.
== END ==
LOC: ER 22:23
DX: M54.2 Cervicalgia (principal); M54.9 Dorsalgia, unspecified; M25.512 Pain in left shoulder; M25.511 Pain in right shoulder; W10.8XXA Fall (on) (from) other stairs and steps, initial encounter
CPT/HCPCS: 93005; 85025; 80048; 36415; 86900; 86850; 85610; 86901; 70450; 71250; 72125; J2405

== ENCOUNTER 2025-01-20 17:41 | Emergency (ER) | payer BC, OTHER ==
--- NOTE | 2025-01-20 18:39 | RAD REPORT ---
Exam:Shoulder Left 2+ Views HISTORY: Left shoulder pain FINDINGS: No fracture or dislocation seen Mild to moderate osteoarthritis AC joint. 7 mm lucency distal left clavicle probably benign. Follow-up x-ray in 3 months recommended for furthe r evaluation
--- NOTE | 2025-01-20 18:46 | RAD REPORT ---
EXAMINATION: CT ABDOMEN AND PELVIS WITHOUT CONTRAST CLINICAL INDICATION: Abdominal pain TECHNIQUE: CT abdomen and pelvis was performed, as per department protocol. IV contrast and oral was not administered.Axial, sagittal and coronal reconstructions were obtained. One or more of the following dose reduction techniques were used: Automated exposure control, adjustment of the mA and/o r kV according to the patient size, and/or iterative reconstruction. Unless otherwise specified, incidental findings do not require dedicated imaging follow-up. [id number]. COMPARISON: No prior exam. FINDINGS: The lack of intravenous and oral contrast limits evaluation of solid organs, vessels and bowel. The liver, spleen, pancreas, adrenals kidneys and bladder do not demonstrate a traumatic injury. Ventral hernia repair. 7 mm gallstone. Gallbladder wall does not appear thickened. No evidence of diverticulitis IMPRESSION: No acute traumatic injury involving the abdomen/pelvis seen. Cholelithiasis without evidence of cholecystitis
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
[2025-01-20] MEDS ORDERED: HYDROCODONE/APAP 10/325 TAB ONE (19:07)
[2025-01-20 19:24] VITALS: TEMP 97.5
[2025-01-20 19:26] VITALS: BP 163/103; O2SAT 95
== END 2025-01-20 19:19 | disposition home or self-care (01) ==
LOC: ER 17:41
DX: M25.512 Pain in left shoulder (principal); M54.50 Low back pain, unspecified; V73.5XXA Driver of bus injured in collision with car, pick-up truck or van in traffic accident, initial encounter
CPT/HCPCS: 74176; 99284

== ENCOUNTER 2025-02-07 20:18 | Emergency (ER) | payer BC, OTHER ==
[2025-02-07] MEDS ORDERED: LORazepam 2 MG/ML VIAL ONE (21:27)
[2025-02-07] MEDS ORDERED: METOCLOPRAMIDE 10 MG/2mL INJ ONE (21:28)
--- NOTE | 2025-02-07 21:53 | RAD REPORT ---
Procedure: Chest Single View HISTORY: Abdominal pain COMPARISON: 2019. FINDINGS: The lungs appear clear of acute infiltrate. No significant pleural effusion noted. The heart is mildly enlarged. IMPRESSION: No acute abnormality is displayed.
[2025-02-07 22:05] LABS: Absolute Eosinophils 0.1 K/uL (0-0.5); Absolute Lymphocytes (CBC) 1.1 K/uL (0.7-4.9); Absolute Monocytes 0.5 K/uL (0.1-1.3); Absolute Neutrophil 5.8 K/uL (1.8-8.0); Basophils % 0.3 % (0-1.3); Eosinophils % 0.9 % (0-4.4); Hematocrit 54.8 % (39.6-49.0); Lymphocytes % 14.2 % (15.3-44.8); MCHC 34.7 g/dL (32.0-36.0); MCV 89.5 fL (80-100); MPV 7.6 fL (7.6-11.3); Monocytes % 6.5 % (3.3-12.3); Neutrophils % 78.1 % (41.7-73.7); Nucleated RBC Absolute Count 0.1 (0-0); Nucleated Red Blood Cells % 0.9 % (0-0); Platelets 174 thou/uL (152-406); RBC Red Blood Cell Count 6.13 M/uL (4.33-5.43); Red Cell Distribution Width 15.6 % (12.1-15.2)
[2025-02-07 22:26] LABS: Albumin 3.9 g/dL (3.4-5.0); Albumin/Globulin Ratio 1.2 (1.1-1.8); Anion Gap 11.3 mEq/L (5.0-15.0); Bilirubin Direct 0.2 mg/dL (0-0.2); Bilirubin Indirect, Calculated 0.5 mg/dL (0.2-0.8); Bilirubin Total 0.7 mg/dL (0.2-1.0); Globulin 3.2 g/dL (2.3-3.5); Magnesium 1.8 mg/dL (1.6-2.4); Potassium 4.3 mEq/L (3.5-5.1); Protein, Total 7.1 g/dL (6.4-8.2); Troponin High Sensitivity 6.6 pg/mL (<58.9)
[2025-02-07 22:46] LABS: PTT, Activated Partial Thromb 29.4 SECONDS (27.2-37.4)
[2025-02-07 22:47] LABS: PT Prothrombin Time 11.8 SECONDS (10-13.0); Protime INR 1.04
--- NOTE | 2025-02-08 00:13 | RAD REPORT ---
EXAM: CT Abdomen and Pelvis With Intravenous Contrast CLINICAL HISTORY: The patient is 59 years old and is Male; Abd pain;Nausea / vomiting TECHNIQUE: Axial computed tomography images of the abdomen and pelvis with intravenous contrast. Sagittal an d coronal reformatted images were created and reviewed. This CT exam was performed using one or more of the following dose reduction techniques: automated exposure control, adjustment of the mA a nd/or kV according to patient size, and/or use of iterative reconstruction technique. COMPARISON: CT January 20, 2025 FINDINGS: LUNG BASES: Unremarkable. No mass. No consolidation. ABDOMEN: LIVER: The liver is enlarged and fatty. GALLBLADDER AND BILE DUCTS: Calcified gallstone is present within the gallbladder. There is no du ctal dilatation. PANCREAS: Mild fatty infiltration of pancreas is present. SPLEEN: The spleen is enlarged and homogeneous. ADRENALS: Unremarkable. No mass. KIDNEYS AND URETERS: The kidneys enhance symmetrically. There is no hydronephrosis or hydroureter of either kidney. No obstructing calculus is seen. Nonspecific perinephric stranding is present. STOMACH AND BOWEL: The stomach is minimally distended with fluid. The small bowel is normal in ca liber. Stool is present throughout the colon. There is no mucosal thickening or evidence of obstruction. PELVIS: APPENDIX: The appendix is normal in caliber without surrounding inflammation. BLADDER: Unremarkable. No mass. REPRODUCTIVE: Unremarkable as visualized. ABDOMEN and PELVIS: INTRAPERITONEAL SPACE: Unremarkable. No free air. No significant fluid collection. BONES/JOINTS: Anterior osteophyte formation and intervertebral disc space narrowing at L5-S1 is p resent. There is no acute fracture. SOFT TISSUES: Evidence of ventral wall hernia repair with abdominal wall mesh in place is noted. There are small bilateral fat containing inguinal hernias. VASCULATURE: Unremarkable. No abdominal aortic aneurysm. LYMPH NODES: Unremarkable. No enlarged lymph nodes. IMPRESSION: 1. Cholelithiasis without CT evidence to suggest cholecystitis. 2. Chronic findings as detailed above. Electronically signed by: Ave Garg MD 02/08/2025 12:08 AM CDT RP Due to temporary technical issues with the PACS/[employer] reporting system, reports are being mandi d by the in-house radiologist without review as a courtesy to ensure prompt reporting the interpreting radiologist is fully responsible for the content of the report. Transcribed Date/Time: 02/08/2025 12:12 AM
--- NOTE | 2025-02-08 01:11 | EDPHYS ---
Physician Documentation [facility] Name: Diogenes Power Jr Age: 59 yrs Sex: Male : 1965 Arrival Date: 02/07/2025 Time: 20:18 Bed 20 Private MD: ED Physician Marcos Cummings HPI: 02/07 20:35 This 59 yrs old Male presents to ER via Wheelchair with complaints of Nausea/Vomiting. cp 20:35 The patient presents to the emergency department with nausea, with "dry heaves", cp vomiting, that is continuous, abdominal pain, of the right lower quadrant and left lower quadrant. Onset: The symptoms/episode began/occurred today. Possible causes: flare up of bowel problem. Associated signs and symptoms: Pertinent negatives: diarrhea, fever, GI bleeding, chest pain. 20:35 Severity of symptoms: in the emergency department the symptoms are unchanged despite cp home interventions. Historical: - Allergies: 20:26 Cardizem; br2 20:26 Cast[place]; br2 - PMHx: 20:26 Diabetes - NIDDM; Bipolar disorder; Hypertension; Myocardial infarction; CVA; heart br2 attack; Seizures; - Immunization history:: Adult Immunizations not up to date. - Infectious Disease History:: Denies. - Social history:: Smoking status: Patient/guardian denies using tobacco, Patient/guardian denies using alcohol, street drugs. ROS: 20:40 Constitutional: Negative for body aches, chills, fever, cp 20:40 Eyes: Negative for injury, pain, redness, and discharge, cp 20:40 ENT: Negative for drainage from ear(s), ear pain, sore throat, difficulty swallowing, difficulty handling secretions, 20:40 Cardiovascular: Negative for chest pain, edema, palpitations, 20:40 Respiratory: Negative for cough, shortness of breath, wheezing, 20:40 Abdomen/GI: Positive for abdominal pain, nausea and vomiting, Negative for diarrhea, constipation, hematemesis, 20:40 Neuro: Negative for altered mental status, headache, syncope, near syncope, 20:40 All other systems are negative, Exam: 20:45 Constitutional: The patient appears alert, awake, non-toxic, well developed, well cp nourished, diaphoretic, uncomfortable, 20:45 Head/Face: Normocephalic, atraumatic. cp 20:45 Eyes: Periorbital structures: appear normal, Conjunctiva: normal, no exudate, no injection, Sclera: no appreciated abnormality, Lids and lashes: appear normal, bilaterally, 20:45 ENT: External ear(s): are unremarkable, Nose: is normal, Mouth: Lips: moist, Oral mucosa: moist, Posterior pharynx: Airway: no evidence of obstruction, patent, erythema, is not appreciated, exudate, is not appreciated, 20:45 Neck: ROM/movement: is normal, is supple, without pain, no range of motions limitations, no meningismus, 20:45 Chest/axilla: Inspection: normal, 20:45 Cardiovascular: Rate: tachycardic, Rhythm: regular, Edema: is not appreciated, JVD: is not appreciated, 20:45 Respiratory: the patient does not display signs of respiratory distress, Respirations: normal, no use of accessory muscles, no retractions, labored breathing, is not present, Breath sounds: are clear throughout, no decreased breath sounds, no stridor, no wheezing, 20:45 Abdomen/GI: Inspection: obese Bowel sounds: active, all quadrants, Palpation: soft, in all quadrants, severe abdominal tenderness, in the right lower quadrant and left lower quadrant, rebound tenderness, is not appreciated, involuntary guarding, is not appreciated, 20:45 Back: pain, is absent, ROM is normal, 20:45 Neuro: Orientation: to person, place \\T\\ time. Mentation: is normal, Motor: moves all fours, no focal deficits, Sensation: no obvious gross deficits, 22:30 ECG was reviewed by the Attending Physician. cp Vital Signs: 20:24 BP 158 / 109; Pulse 100; Resp 18; Pulse Ox 100% ; Weight 113.4 kg; Height 6 ft. 0 in. ; br2 Pain 10/10; 22:04 BP 131 / 68; Pulse 80; Resp 18; Pulse Ox 100% on R/A; kj2 23:00 BP 117 / 79; Pulse 95; Resp 18; Pulse Ox 100% on R/A; kj2 23:57 BP 130 / 70; Pulse 92; Resp 18; Pulse Ox 100% ; kj2 02/08 00:54 BP 136 / 81; Pulse 87; Resp 18; Pulse Ox 100% ; br2 02/07 20:24 Body Mass Index 33.91 (113.40 kg, 182.88 cm) br2 02/07 20:24 Pain Scale: Adult br2 MDM: 02/07 20:26 Medical Screening Exam initiated 21:00 Differential diagnosis: gastritis, cholecystitis, pancreatitis, appendicitis, cp diverticulitis, viral gastroenteritis, gastroenteritis, gastroparesis, bowel obstruction, ileus, acute OK. 02/08 01:10 Data reviewed: vital signs, nurses notes, lab test result(s), EKG, radiologic studies, cp CT scan, plain films, and as a result, I will discharge patient. 01:10 I considered the following discharge prescriptions or medication management in the emergency department Medications were administered in the Emergency Department. See MAR. 01:10 Consideration of Admission/Observation Escalation of care including admission/observation considered. Independent interpretation of the following test(s) in the Emergency Department EKG: See my EKG interpretation above. Care significantly affected by the following chronic conditions: Diabetes, Hypertension, Obesity. Counseling: I had a detailed discussion with the patient and/or guardian regarding the historical points, exam findings, and any diagnostic results supporting the discharge/admit diagnosis, lab results, radiology results, to return to the emergency department if symptoms worsen or persist or if there are any questions or concerns that arise at home. Response to treatment: the patient's symptoms have markedly improved after treatment, and as a result, I will discharge patient. Special discussion: Based on the patient's Hx, exam, and Dx evaluation, there is no indication for emergent surgery or inpatient Tx. It is understood by the patient/guardian that if the Sx's persist or worsen they need to return immediately for re-evaluation. ED course: VSS. Nausea and pain markedly improved. Vomiting resolved and patient tolerating po fluids. 02/07 20:32 Order name: Basic Metabolic Panel; Complete Time: 22:30 cp 02/07 22:31 Interpretation: Normal except: GLUC 211; BUN 19; CRE 1.34; GFR 61. cp 02/07 20:32 Order name: CBC with Diff; Complete Time: 22:30 cp 02/07 20:32 Order name: LFT's; Complete Time: 22:30 cp 02/07 20:32 Order name: Magnesium; Complete Time: 22:30 cp 02/07 20:32 Order name: NT PRO-BNP; Complete Time: 22:30 cp 02/07 20:32 Order name: PT-INR; Complete Time: 00:16 cp 02/08 00:17 Interpretation: Reviewed. cp 02/07 20:32 Order name: Troponin HS; Complete Time: 22:30 cp 02/07 20:32 Order name: Ptt, Activated; Complete Time: 00:16 cp 02/08 00:17 Interpretation: Reviewed. cp 02/07 20:32 Order name: Lipase; Complete Time: 22:30 cp 02/07 20:32 Order name: XRAY Chest (1 view); Complete Time: 22:30 cp 02/07 22:31 Order name: CT Abd/Pelvis - IV Contrast Only cp 02/07 20:32 Order name: EKG; Complete Time: 20:33 cp 02/07 20:32 Order name: Cardiac monitoring; Complete Time: 22:32 cp 02/07 20:32 Order name: EKG - Nurse/Tech; Complete Time: 22:32 cp 02/07 20:32 Order name: IV Saline Lock; Complete Time: 22:33 cp 02/07 20:32 Order name: Labs collected and sent; Complete Time: 22:33 cp 02/07 20:32 Order name: O2 Per Protocol; Complete Time: 22:33 cp 02/07 20:32 Order name: O2 Sat Monitoring; Complete Time: 22:33 cp 02/08 00:27 Order name: PO challenge; Complete Time: 01:35 cp EC/20 22:30 Rate is 84 beats/min. Rhythm is regular. IL interval is normal. QRS interval is normal. cp QT interval is normal. T waves are Inverted in lead aVR. Interpreted by me. Reviewed by me. Administered Medications: 22:00 Drug: metoCLOPramide IVP 10 mg IVP once; over 1 to 2 minutes Route: IVP; Site: left kj2 forearm; 02/08 00:01 Follow up: Response: No adverse reaction kj2 02/07 22:00 Drug: Ativan IVP 1 mg IVP once Route: IVP; Site: left forearm; kj2 02/08 00:01 Follow up: Response: No adverse reaction kj2 Disposition: 22:32 Co-signature as Attending Physician, Marcos Cummings MD I agree with the assessment sp4 and plan of care. I reviewed the patient's care provided by the Advanced Practice Provider and agree with the diagnosis and treatment plan. Disposition Summary: 02/08/25 01:11 Discharge Ordered Notes: Location: Home cp Problem: new cp Symptoms: have improved cp Condition: Stable cp Diagnosis - Nausea with vomiting, unspecified cp - Other cholelithiasis without obstruction cp - Abdominal pain, unspecified cp Followup: cp - With: Lopez Bright MD - When: 2 - 3 days - Reason: gallstones Discharge Instructions: - Discharge Summary Sheet cp - Abdominal Pain, Adult cp - Nausea and Vomiting, Adult cp - Cholelithiasis cp Forms: - Medication Reconciliation Form cp - Antibiotic Education cp - Prescription Opioid Use cp - Patient Portal Instructions cp - Leadership Thank You Letter cp - Work release form br2 - Family Work Release br2 Prescriptions: - Pepcid 20 mg Oral Tablet - take 1 tablet ORAL route every 12 hours for 10 days; 20 tablet; Refills: 0, cp Product Selection Permitted - Zofran 4 mg Oral Tablet - take 1 tablet ORAL route every 12 hours As needed; 20 tablet; Refills: 0, cp Product Selection Permitted - dicyclomine 20 mg Oral tablet - take 1 tablet ORAL route 4 times per day; 30 tablet; Refills: 0, Product cp Selection Permitted Signatures: Dispatcher [employer] EDMS Jordan Azul PA PA cp Marcos Cummings MD MD sp4 Mercedes Pena, RN RN br2 Taylor Cameron RN RN kj2 Corrections: (The following items were deleted from the chart) 02/07 20:33 20:33 BASIC METABOLIC PANEL+C.LAB.BRZ ordered. EDMS EDMS 20:33 20:33 CBC+H.LAB.BRZ ordered. EDMS EDMS 20:33 20:33 HEPATIC FUNCTION+C.LAB.BRZ ordered. EDMS EDMS 20:33 20:33 MAGNESIUM+C.LAB.BRZ ordered. EDMS EDMS 20:33 20:33 PROBNP+C.LAB.BRZ ordered. EDMS EDMS 20:33 20:33 PROTIME (+INR)+COAG.LAB.BRZ ordered. EDMS EDMS 20:33 20:33 Troponin High Sensitivity+C.LAB.BRZ ordered. EDMS EDMS 20:33 20:33 PTT, ACTIVATED+COAG.LAB.BRZ ordered. EDMS EDMS 20:33 20:33 LIPASE+C.LAB.BRZ ordered. EDMS EDMS 20:33 20:33 Urinalysis W/Microscopic+U.LAB.BRZ ordered. EDMS EDMS
--- NOTE | 2025-02-08 01:11 | ER ---
Nurse's Notes [facility] Name: Diogenes Power Jr Age: 59 yrs Sex: Male : 1965 Arrival Date: 02/07/2025 Time: 20:18 Bed 20 Private MD: Diagnosis: Nausea with vomiting, unspecified;Other cholelithiasis without obstruction;Abdominal pain, unspecified Presentation: 02/07 20:22 Chief complaint:. br2 20:24 Chief complaint: Patient states: ABDOMINAL PAIN WITH NAUSEA/VOMITING/DIAPHORETIC. br2 Coronavirus screen: Client denies travel out of the [place] in the last 14 days. Ebola Screen: Patient denies exposure to infectious person. Initial Sepsis Screen: Does the patient meet any 2 criteria? No. Patient's initial sepsis screen is negative. Does the patient have a suspected source of infection? No. Patient's initial sepsis screen is negative. Risk Assessment: Do you want to hurt yourself or someone else? Patient reports no desire to harm self or others. Onset of symptoms was February 05, 2025. 20:24 Method Of Arrival: Wheelchair br2 20:24 Acuity: ESA 3 br2 Triage Assessment: 20:26 General: Appears uncomfortable, Behavior is quiet. Pain: Complains of pain in right br2 upper quadrant, left upper quadrant, right lower quadrant and left lower quadrant Pain currently is 10 out of 10 on a pain scale. GI: Reports lower abdominal pain, upper abdominal pain, nausea, vomiting. Historical: - Allergies: 20:26 Cardizem; br2 20:26 [place]olphin; br2 - PMHx: 20:26 Diabetes - NIDDM; Bipolar disorder; Hypertension; Myocardial infarction; CVA; heart br2 attack; Seizures; - Immunization history:: Adult Immunizations not up to date. - Infectious Disease History:: Denies. - Social history:: Smoking status: Patient/guardian denies using tobacco, Patient/guardian denies using alcohol, street drugs. Screenin:45 [facility] ED Fall Risk Assessment (Adult) History of falling in the last 3 months, kj2 including since admission No falls in past 3 months (0 pts) Confusion or Disorientation No (0 pts) Intoxicated or Sedated No (0 pts) Impaired Gait No (0 pts) Mobility Assist Device Used No (0 pt) Altered Elimination No (0 pt) Score/Fall Risk Level 0 - 2 = Low Risk Maintained a safe environment, Hourly rounding (assess needs \T\ fall precautionary measures) done. Abuse screen: Denies threats or abuse. Denies injuries from another. Nutritional screening: No deficits noted. 22:05 Tuberculosis screening: No symptoms or risk factors identified. kj2 Assessment: 20:45 Pain: Complains of pain in abdomen and left lower quadrant and right lower quadrant and kj2 left upper quadrant and right upper quadrant Pain currently is 5 out of 10 on a pain scale. Quality of pain is described as. Neuro: Level of Consciousness is awake, alert, obeys commands, Oriented to person, place, time, situation. Cardiovascular: Patient's skin is warm and dry. Respiratory: Airway is patent Respiratory effort is even, unlabored. GI: Abdomen is non-distended, Reports nausea, vomiting, since 2 days ago. : No signs and/or symptoms were reported regarding the genitourinary system. 20:45 General: Appears in no apparent distress. Behavior is cooperative. kj2 22:04 Reassessment: Patient appears in no apparent distress at this time. Patient and/or kj2 family updated on plan of care and expected duration. Pain level reassessed. Patient is alert, oriented x 3, equal unlabored respirations, skin warm/dry/pink. 23:00 Reassessment: Patient appears in no apparent distress at this time. Patient and/or kj2 family updated on plan of care and expected duration. Pain level reassessed. Patient is alert, oriented x 3, equal unlabored respirations, skin warm/dry/pink. 23:57 Reassessment: Patient appears in no apparent distress at this time. Patient and/or kj2 family updated on plan of care and expected duration. Pain level reassessed. Patient is alert, oriented x 3, equal unlabored respirations, skin warm/dry/pink. Vital Signs: 20:24 BP 158 / 109; Pulse 100; Resp 18; Pulse Ox 100% ; Weight 113.4 kg; Height 6 ft. 0 in. ; br2 Pain 10/; 22:04 BP 131 / 68; Pulse 80; Resp 18; Pulse Ox 100% on R/A; kj2 23:00 BP 117 / 79; Pulse 95; Resp 18; Pulse Ox 100% on R/A; kj2 23:57 BP 130 / 70; Pulse 92; Resp 18; Pulse Ox 100% ; kj2 02/08 00:54 BP 136 / 81; Pulse 87; Resp 18; Pulse Ox 100% ; br2 02/07 20:24 Body Mass Index 33.91 (113.40 kg, 182.88 cm) br2 02/07 20:24 Pain Scale: Adult br2 ED Course: 02/07 20:19 Patient arrived in ED. jj6 20:22 Jordan Azul PA is PHCP. cp 20:22 Marcos Cummings MD is Attending Physician. cp 20:26 Triage completed. br2 20:26 Arm band placed on right wrist. br2 20:45 Patient has correct armband on for positive identification. Provided Education on: call kj2 light. 21:22 Taylor Cameron, KENNETH is Primary Nurse. kj2 21:43 XRAY Chest (1 view) In Process Unspecified. EDMS 21:50 Inserted saline lock: 20 gauge in left forearm, using aseptic technique. Blood kj2 collected. Flushed with 10 mL NS. 23:11 CT Abd/Pelvis - IV Contrast Only In Process Unspecified. EDMS 02/08 01:11 Lopez Bright MD is Referral Physician. cp 01:33 intact, bleeding controlled, No redness/swelling at site. Pressure dressing applied. br2 01:34 No provider procedures requiring assistance completed. br2 Administered Medications: 02/07 22:00 Drug: metoCLOPramide IVP 10 mg IVP once; over 1 to 2 minutes Route: IVP; Site: left kj2 forearm; 02/08 00:01 Follow up: Response: No adverse reaction kj2 02/07 22:00 Drug: Ativan IVP 1 mg IVP once Route: IVP; Site: left forearm; kj2 02/08 00:01 Follow up: Response: No adverse reaction kj2 Outcome: 01:11 Discharge ordered by . cp 01:33 Discharged to home ambulatory, br2 01:33 Condition: stable 01:33 Discharge instructions given to patient, Instructed on discharge instructions, follow up and referral plans. Demonstrated understanding of instructions, follow-up care, medications, Prescriptions given X 3, 01:38 Patient left the ED. br2 Signatures: Dispatcher [employer] EDMS Jordan Azul PA PA cp Jeffries, Jennifer jj6 Mercedes Pena RN RN br2 Taylor Cameron RN RN kj2 Corrections: (The following items were deleted from the chart) 02/07 22: 21:45 General: Appears in no apparent distress. Behavior is cooperative, kj2 kj2 : 21:45 Pain: Complains of pain in abdomen and left lower quadrant and right lower kj2 quadrant and left upper quadrant and right upper quadrant Pain currently is 5 out of 10 on a pain scale. Quality of pain is described as kj2 : 21:45 Neuro: Level of Consciousness is awake, alert, obeys commands, Oriented to kj2 person, place, time, situation, kj2 : 21:45 Cardiovascular: Patient's skin is warm and dry. kj2 kj2 : 21:45 Respiratory: Airway is patent Respiratory effort is even, unlabored, kj2 kj2 : 21:45 GI: Abdomen is non-distended, Reports nausea, vomiting, since 2 days ago kj2 kj2 : 21:45 : No signs and/or symptoms were reported regarding the genitourinary system. kj2kj2 22:06 22:05 [facility] ED Fall Risk Assessment (Adult) History of falling in the last 3 months, kj2 including since admission No falls in past 3 months (0 pts) Confusion or Disorientation No (0 pts) Intoxicated or Sedated No (0 pts) Impaired Gait No (0 pts) Mobility Assist Device Used No (0 pt) Altered Elimination No (0 pt) Score/Fall Risk Level 0 - 2 = Low Risk Maintained a safe environment, Hourly rounding (assess needs \T\ fall precautionary measures) done, kj2 22:06 22:05 Abuse screen: Denies threats or abuse. Denies injuries from another. kj2 kj2 22:06 22:05 Nutritional screening: No deficits noted. kj2 kj2
[2025-02-08 01:46] VITALS: O2SAT 100
[2025-02-08 01:53] VITALS: BP 136/81
--- NOTE | 2025-02-10 12:45 | EKG ---
Test Date: 2025-02-07 Test Time: 22:08:38 Credit Risk Officer: RONEN MEASUREMENT RESULTS: Intervals: Rate: 84 KS: 174 QRSD: 88 QT: 338 QTc: 399 [place]: P: 67 KS: 174 QRS: 47 T: 64 INTERPRETIVE STATEMENTS: Normal sinus rhythm Low voltage QRS Borderline ECG Compared to ECG 11/04/2023 22:39:38 Low QRS voltage now present Myocardial infarct finding no longer present Electronically Signed On 02-10-25 12:40:20 CDT by Chandrakant Durant
== END 2025-02-08 01:38 | disposition home or self-care (01) ==
LOC: ER 20:18
DX: K80.80 Other cholelithiasis without obstruction (principal); R10.31 Right lower quadrant pain
CPT/HCPCS: 93005; 85025; 80048; 36415; 83735; 85610; 80076; 85730; 84484; 83690; 83880; 74177; 71045; 96375; 96374; 99284; Q9967; J2765